=== PATIENT | female | born 1960 | race Caucasian/White ===

== ENCOUNTER 2016-08-10 14:48 | Emergency (ER) | payer OTHER ==
[~2016-08-10] VITALS: Ht 162.6 cm; Wt 49.6 kg
[~2016-08-10 14:48] MED LIST: ACID CONTROL150 MG PO; ADULT LOW DOSE81 M1 PO; ADVAIR 250/501 DISK IH; ADVIL,NUPRIN,M200 MG PO; AMITRIPTYLINE H10 MG PO; AMLODIPINE BES2.5 MG PO; AMLODIPINE BESYL5 MG PO; ASPIR 8181 M1; ASPIR 8181 M1 PO; ASPIR 8181 MG PO; ASPIR-LOW81 MG PO; ASPIRIN E.C.81 M1 PO; ASPIRIN81 M1 PO; ASPIRIN81 M2 PO; ATIVAN INTE2 MG/1 ML PO; ATIVAN0.5 MG PO; ATORVASTATIN CA40 MG PO; ATORVASTATIN CA80 MG; ATORVASTATIN CA80 MG PO; Aspirin Chewable PO; Aspirin E.C. PO; BACTRIM,SEPT1 TABLET PO; BAYER CHEWABLE81 MG PO; BRILINTA90 MG PO; Bactrim,Septra DS 80 PO; CETIRIZINE HCL10 M2 PO; CHILD ASPIRIN81 M1 PO; CIPRO500 MG PO; CYANOCOBALAM1000 MCG PO; CYANOCOBALAMI100 MCG PO; Combivent IH; DEXILANT60 MG PO; DIFLUCAN100 MG PO; DIFLUCAN150 MG PO; DIOVAN HCT 11 TABLET PO; DIOVAN HCT 1601 EACH PO; DIOVAN HCT 31 TABLE1; DIOVAN80 MG PO; Diovan HCT 160/12.5 PO; EASY COMFORT P MC; EFFIENT10 MG; EFFIENT10 MG PO; FLONASE16 G1 BOTH NARES; FOLIC ACID1 MG PO; GLIPIZIDE5 MG PO; GLUCOPHAGE500 MG PO; HALDOL0.5 MG PO; HEARTBURN150 MG PO; HUMALOG100 UNIT/1 SC; HUMALOG100 UNIT/2; HUMALOG100 UNIT/2 SC; HUMALOG100 UNITS/ SC; HUMULIN SQ; HYDROCHLOROTH12.5 M3 PO; IBUPROFEN400 MG PO; IMDUR120 MG PO; IMDUR30 MG PO; IMDUR60 MG PO; ISOSORBIDE DINI30 MG; ISOSORBIDE DINI30 MG PO; ISOSORBIDE MONO20 MG PO; ISOSORBIDE MONO30 MG; ISOSORBIDE MONO30 MG PO; LANTUS (UNITS)1 UNIT SC; LANTUS 10100 UNITS/ SC; LANTUS 10100 UNITS/ SQ; LANTUS 3 M100 UNITS/ SC; LANTUS 3 M100 UNITS/ SQ; LANTUS 3 M100 UNITS1 SC; LANTUS100 UNIT/1; LANTUS100 UNIT/1 SC; LEVAQUIN500 MG PO; LIPITOR20 MG; LIPITOR20 MG PO; LIPITOR80 MG PO; LISINOPRIL5 MG PO; LO-DOSE ASPIRIN81 M1 PO; LOPRESSOR25 MG PO; LOPRESSOR50 MG PO; LOW DOSE ASPIRI81 M1 PO; LOW DOSE ASPIRI81 M2 PO; LYRICA25 MG; LYRICA50 MG PO; Lipitor PO; Lopressor PO; MARTINIC1 EACH PO; METFORMIN HCL500 MG PO; METOPROLOL PO; METOPROLOL SUCC25 MG PO; METOPROLOL TART25 MG PO; METOPROLOL TART50 MG PO; MIRALAX17 GM PO; MORPHINE CON20 MG/M1 PO; MOTRIN IB200 MG PO; MYCOSTATIN15 GM PO; NITROGLYCERIN0.4 MG SL; NITROSTAT0.4 MG SL; NORCO 5/3251 TABLET PO; NORVASC2.5 MG PO; NORVASC5 MG PO; NOVOLIN R100 UNIT/1 IM; NOVOLOG PE100 UNITS/ SC; NYSTATIN-TRIAMC15 GM TP; NYSTATIN15 GM TP; Norvasc PO; PERCOCET 5/31 TABLET PO; PLAVIX75 MG PO; PRAVACHOL40 MG PO; PRAVACHOL80 MG PO; PREMARIN0.3 MG PO; PRINIVIL5 MG PO; PROAIR HFA8.5 GM IH; PYRIDOXINE,VITA50 MG PO; Protonix PO; Proventil,Ventolin H IH; RANITIDINE HCL150 M1 PO; RANITIDINE HCL150 MG; RANITIDINE HCL150 MG PO; ROXICODONE5 MG PO; SIMVASTATIN20 M1 PO; SIMVASTATIN40 M1 PO; TEST N'GO1 EAC1 MC; TEST N'GO1 EACH MC; TOPROL XL100 MG PO; TOPROL XL50 MG PO; TRAMADOL HCL50 MG; TRAMADOL HCL50 MG PO; TYLENOL EXTRA500 MG PO; TYLENOL REGULA325 MG PO; ULTRAM50 MG PO; VALSARTAN-HCTZ1 EAC1 PO; VENTOLIN17 GM IH; VIT B-6; VITAMIN B-1250 MC3 PO; VITAMIN B-6100 MG; VITAMIN B-6100 MG PO; VITAMIN B-650 MG PO; VITAMIN B12-FO1 EACH PO; VITAMIN D-32000 UNIT PO; VITAMIN D2000 INTUN PO; VITAMIN D22000 UNIT PO; VITAMIN D400 UNI4; VITAMIN D5000 INTUN; VITAMIN D5000 INTUN PO; VITAMIN D5000 UNIT; VITAMIN D5000 UNIT PO; WOMEN MULTIVIT1 EACH PO; ZANTAC150 M1 PO; ZANTAC150 MG PO; ZETIA10 MG PO; ZITHROMAX Z-PA250 MG PO; ZOFRAN ODT4 MG PO; ZOFRAN4 MG PO; ZYRTEC10 M2 PO; Zantac PO; Zestril,Prinivil PO; Zocor PO; [UNRECOGNIZED DRUG - OTHER] SQ
[2016-08-10 15:08] LABS: HEMATOCRIT 39.7 % (36.0-46.0); MCH 30.3 PG (29.0-34.0); MCHC 34.8 G/DL (30.0-36.0); MCV 87.3 FL (83-99); MEAN PLAT.VOLUME 10.5 uM^3 (9.5-12.4); PLATELET COUNT 238 K/uL (156-360); RBC DIS.WIDTH-CV 12.6 % (11.8-14.6); RBC DIS.WIDTH-SD 39.5 % (39-53); RED BLOOD COUNT 4.55 M/uL (3.80-5.20); WHITE BLOOD COUNT 6.9 K/uL (4.1-10.2)
[2016-08-10 15:16] LABS: CHLORIDE 95 mEq/L (99-109); POTASSIUM 4.4 mEq/L (3.7-5.4); SODIUM 134 mEq/L (136-147)
[2016-08-10 15:20] LABS: ANION GAP 13 MEQ/L (2-14); GLUCOSE 567 mg/dL (70-99)
[2016-08-10 15:22] LABS: GFR ESTIMATE (CALCULATED) > 59 mL/min/
[2016-08-10 15:23] LABS: UREA NITROGEN (BUN) 17 mg/dL (9-23)
[2016-08-10 15:30] LABS: TROP-I INTERPRETATION NEGATIVE; TROPONIN-I < 0.01 ng/mL (0.0-0.30)
[2016-08-10 16:28] VITALS: BP 116/71
== END 2016-08-10 16:34 | disposition left against medical advice (07) ==
LOC: EME 14:48
DX: R07.9 Chest pain, unspecified (principal); E11.9 Type 2 diabetes mellitus without complications; Z79.4 Long term (current) use of insulin; I25.2 Old myocardial infarction; F17.200 Nicotine dependence, unspecified, uncomplicated; Z95.5 Presence of coronary angioplasty implant and graft
CPT/HCPCS: 71020; 80048; 84484; 85027; 93005; 99281; 99284

== ENCOUNTER 2016-08-20 20:46 | Emergency (ER) | payer OTHER ==
[~2016-08-20] VITALS: Ht 162.6 cm; Wt 53.8 kg
[2016-08-20 21:34] LABS: EOSINOPHIL (%) 2.3 % (0-5); EOSINOPHIL COUNT 0.2 K/uL (0-0.3); HEMATOCRIT 37.1 % (36.0-46.0); IMMATURE GRANULOCYTE (%) 0.3 % (0.0-0.7); IMMATURE GRANULOCYTE COUNT 0.2 K/uL; LYMPHOCYTE COUNT 1.9 K/uL (1.0-2.8); MCH 30.4 PG (29.0-34.0); MCV 89.6 FL (83-99); MEAN PLAT.VOLUME 10.7 uM^3 (9.5-12.4); MONOCYTE (%) 6.2 % (3-12); MONOCYTE COUNT 0.5 K/uL (0-0.8); NEUTROPHIL (%) 64.6 % (45-76); NEUTROPHIL COUNT 4.7 K/uL (1.8-6.4); PLATELET COUNT 221 K/uL (156-360); RBC DIS.WIDTH-SD 41.7 % (39-53); RED BLOOD COUNT 4.14 M/uL (3.80-5.20); WHITE BLOOD COUNT 7.3 K/uL (4.1-10.2)
[2016-08-20 21:45] LABS: CHLORIDE 104 mEq/L (99-109); POTASSIUM 4.1 mEq/L (3.7-5.4); SODIUM 138 mEq/L (136-147)
[2016-08-20 21:47] LABS: GLUCOSE 254 mg/dL (70-99)
[2016-08-20 21:48] LABS: ANION GAP 9 MEQ/L (2-14)
[2016-08-20 21:50] LABS: GFR ESTIMATE (CALCULATED) > 59 mL/min/
[2016-08-20 21:51] LABS: UREA NITROGEN (BUN) 16 mg/dL (9-23)
[2016-08-20 21:58] LABS: TROP-I INTERPRETATION NEGATIVE; TROPONIN-I < 0.01 ng/mL (0.0-0.30)
[2016-08-20 23:50] VITALS: BP 142/51
== END 2016-08-20 23:52 | disposition left against medical advice (07) ==
LOC: EME 20:46
PROVIDERS: Emergency Medicine
DX: R07.9 Chest pain, unspecified (principal); Z53.20 Procedure and treatment not carried out because of patient's decision for unspecified reasons; J43.9 Emphysema, unspecified; J44.9 Chronic obstructive pulmonary disease, unspecified; I10 Essential (primary) hypertension; E78.5 Hyperlipidemia, unspecified; E11.9 Type 2 diabetes mellitus without complications; F17.200 Nicotine dependence, unspecified, uncomplicated; Z95.5 Presence of coronary angioplasty implant and graft; Z79.4 Long term (current) use of insulin; Z91.040 Latex allergy status; Z88.1 Allergy status to other antibiotic agents; Z88.8 Allergy status to other drugs, medicaments and biological substances
CPT/HCPCS: 71010; 80048; 83880; 84484; 85025; 93005; 99281; 99284

== ENCOUNTER 2016-09-07 19:41 | Emergency (ER) | payer OTHER ==
[~2016-09-07] VITALS: Ht 162.6 cm; Wt 53.0 kg
[2016-09-07 20:19] LABS: HEMATOCRIT 39.6 % (36.0-46.0); MCHC 34.1 G/DL (30.0-36.0); PLATELET COUNT 231 K/uL (156-360); RBC DIS.WIDTH-CV 13.2 % (11.8-14.6); RBC DIS.WIDTH-SD 43.5 % (39-53); RED BLOOD COUNT 4.35 M/uL (3.80-5.20)
[2016-09-07 20:29] LABS: CHLORIDE 106 mEq/L (99-109); POTASSIUM 4.2 mEq/L (3.7-5.4); SODIUM 141 mEq/L (136-147)
[2016-09-07 20:30] LABS: GLUCOSE 213 mg/dL (70-99)
[2016-09-07 20:32] LABS: ANION GAP 9 MEQ/L (2-14)
[2016-09-07 20:34] LABS: GFR ESTIMATE (CALCULATED) > 59 mL/min/
[2016-09-07 20:35] LABS: UREA NITROGEN (BUN) 14 mg/dL (9-23)
[2016-09-07 20:40] LABS: TROP-I INTERPRETATION NEGATIVE; TROPONIN-I 0.01 ng/mL (0.0-0.30)
[2016-09-07 21:30] VITALS: BP 154/76
== END 2016-09-07 22:24 | disposition left against medical advice (07) ==
LOC: EME 19:41
DX: R07.9 Chest pain, unspecified (principal); R06.02 Shortness of breath; R42 Dizziness and giddiness; E11.9 Type 2 diabetes mellitus without complications; Z79.4 Long term (current) use of insulin; Z95.5 Presence of coronary angioplasty implant and graft; F17.200 Nicotine dependence, unspecified, uncomplicated
CPT/HCPCS: 71020; 80048; 84484; 85027; 93005; 99281; 99283

== ENCOUNTER 2016-10-13 00:13 | Emergency (ER) | payer OTHER ==
[~2016-10-13] VITALS: Ht 162.6 cm; Wt 50.4 kg
[2016-10-13 00:16] VITALS: BP 146/70
[2016-10-14] MEDS ORDERED: LANTUS 3 M100 UNITS1 SC (23:40)
[2016-10-14] MEDS ORDERED: NEURONTIN600 MG PO (23:40)
== END 2016-10-13 02:00 | disposition left against medical advice (07) ==
LOC: EME 00:13
DX: M79.671 Pain in right foot (principal); M79.89 Other specified soft tissue disorders; R23.8 Other skin changes; Z53.21 Procedure and treatment not carried out due to patient leaving prior to being seen by health care provider

== ENCOUNTER 2016-10-14 18:59 | Emergency (ER) | payer OTHER ==
[~2016-10-14] VITALS: Ht 162.6 cm; Wt 50.3 kg
[2016-10-14 22:26] LABS: HEMATOCRIT 43.2 % (36.0-46.0); MCH 29.8 PG (29.0-34.0); MCHC 33.6 G/DL (30.0-36.0); MCV 88.7 FL (83-99); MEAN PLAT.VOLUME 10.3 uM^3 (9.5-12.4); PLATELET COUNT 327 K/uL (156-360); RBC DIS.WIDTH-CV 12.1 % (11.8-14.6); RBC DIS.WIDTH-SD 39.1 % (39-53); RED BLOOD COUNT 4.87 M/uL (3.80-5.20); WHITE BLOOD COUNT 8.8 K/uL (4.1-10.2)
[2016-10-14 22:37] LABS: CHLORIDE 98 mEq/L (99-109); POTASSIUM 4.6 mEq/L (3.7-5.4); SODIUM 135 mEq/L (136-147)
[2016-10-14 22:40] LABS: ANION GAP 9 MEQ/L (2-14); GLUCOSE 466 mg/dL (70-99)
[2016-10-14 22:42] LABS: GFR ESTIMATE (CALCULATED) > 59 mL/min/
[2016-10-14 22:43] LABS: UREA NITROGEN (BUN) 13 mg/dL (9-23)
[2016-10-14 22:47] LABS: TROP-I INTERPRETATION NEGATIVE; TROPONIN-I < 0.01 ng/mL (0.0-0.30)
[2016-10-14] MEDS ORDERED: NEURONTIN600 MG PO (23:40)
[2016-10-14] MEDS ORDERED: LANTUS 3 M100 UNITS1 SC (23:40)
[2016-10-15] MEDS ORDERED: CLEOCIN300 MG PO (00:21)
[2016-10-15 00:40] VITALS: BP 117/58
== END 2016-10-15 01:05 | disposition home or self-care (01) ==
LOC: EME 18:59
PROVIDERS: Emergency Medicine
DX: M86.8X7 Other osteomyelitis, ankle and foot (principal); L03.031 Cellulitis of right toe; E11.9 Type 2 diabetes mellitus without complications; Z79.4 Long term (current) use of insulin; Z91.14 Patient's other noncompliance with medication regimen; F17.200 Nicotine dependence, unspecified, uncomplicated; Z95.5 Presence of coronary angioplasty implant and graft
CPT/HCPCS: 71010; 73630; 80048; 83605; 83880; 84484; 85027; 87040; 93005; 99281; 99284; J2270; J2405

== ENCOUNTER 2016-10-28 19:09 | Emergency (ER) | payer OTHER ==
[~2016-10-28] VITALS: Ht 162.6 cm; Wt 51.6 kg
[~2016-10-28 19:09] MED LIST changes: +CLEOCIN300 MG PO; +NEURONTIN600 MG PO
[2016-10-28 19:39] LABS: POINT-OF-CARE METER ID UU13113702
[2016-10-28 20:09] LABS: HEMATOCRIT 36.1 % (36.0-46.0); MCH 30.2 PG (29.0-34.0); MCV 91.6 FL (83-99); MEAN PLAT.VOLUME 10.2 uM^3 (9.5-12.4); PLATELET COUNT 239 K/uL (156-360); RBC DIS.WIDTH-CV 12.5 % (11.8-14.6); RBC DIS.WIDTH-SD 41.9 % (39-53); RED BLOOD COUNT 3.94 M/uL (3.80-5.20)
[2016-10-28 20:10] LABS: WHITE BLOOD COUNT 5.7 K/uL (4.1-10.2)
[2016-10-28 20:15] LABS: CHLORIDE 103 mEq/L (99-109); POTASSIUM 4.2 mEq/L (3.7-5.4); SODIUM 138 mEq/L (136-147)
[2016-10-28 20:18] LABS: ANION GAP 7 MEQ/L (2-14)
[2016-10-28 20:20] LABS: GFR ESTIMATE (CALCULATED) > 59 mL/min/
[2016-10-28 20:21] LABS: UREA NITROGEN (BUN) 12 mg/dL (9-23)
[2016-10-28 20:27] LABS: GLUCOSE 413 mg/dL (70-99)
[2016-10-28 20:55] LABS: POINT-OF-CARE METER ID UU13113702
[2016-10-28] MEDS ORDERED: NORCO 7.5/321 TABLET PO (21:17)
[2016-10-28 21:35] VITALS: BP 146/75
== END 2016-10-28 21:38 | disposition home or self-care (01) ==
LOC: EME 19:09
PROVIDERS: Emergency Medicine
DX: I96 Gangrene, not elsewhere classified (principal); E11.65 Type 2 diabetes mellitus with hyperglycemia; Z79.4 Long term (current) use of insulin; Z95.5 Presence of coronary angioplasty implant and graft; F17.200 Nicotine dependence, unspecified, uncomplicated
CPT/HCPCS: 73630; 80048; 82948; 83605; 85027; 99281; 99284; J7030

== ENCOUNTER 2016-10-30 00:54 | Inpatient (IN) | payer OTHER ==
[~2016-10-30] VITALS: Ht 162.6 cm; Wt 52.2 kg
[~2016-10-30 00:54] MED LIST changes: +NORCO 7.5/321 TABLET PO
[2016-10-30 01:06] LABS: CREATININE 0.5 mg/dL (0.6-1.3)
[2016-10-30 01:19] LABS: BASOPHIL COUNT 0.1 K/uL (0-0.1); EOSINOPHIL (%) 2.5 % (0-5); EOSINOPHIL COUNT 0.2 K/uL (0-0.3); HEMATOCRIT 38.7 % (36.0-46.0); IMMATURE GRANULOCYTE (%) 0.3 % (0.0-0.7); LYMPHOCYTE COUNT 2.5 K/uL (1.0-2.8); MCHC 32.8 G/DL (30.0-36.0); MCV 91.3 FL (83-99); MEAN PLAT.VOLUME 10.5 uM^3 (9.5-12.4); MONOCYTE (%) 7.9 % (3-12); MONOCYTE COUNT 0.6 K/uL (0-0.8); NEUTROPHIL (%) 54.8 % (45-76); PLATELET COUNT 247 K/uL (156-360); RBC DIS.WIDTH-CV 12.5 % (11.8-14.6); RBC DIS.WIDTH-SD 41.8 % (39-53); RED BLOOD COUNT 4.24 M/uL (3.80-5.20); WHITE BLOOD COUNT 7.2 K/uL (4.1-10.2)
[2016-10-30 01:30] LABS: PROTHROMBIN TIME 10.3 (9.2-11.2); PTT 25.4 (25-32)
[2016-10-30 01:31] LABS: AMYLASE 40 IU/L (1-118); CHLORIDE 103 mEq/L (99-109); POTASSIUM 4.2 mEq/L (3.7-5.4); SODIUM 137 mEq/L (136-147)
[2016-10-30 01:33] LABS: GLUCOSE 304 mg/dL (70-99)
[2016-10-30 01:34] LABS: ANION GAP 8 MEQ/L (2-14)
[2016-10-30 01:36] LABS: SERUM ETHYL ALCOHOL < 10 mg/dL
[2016-10-30 01:37] LABS: GFR ESTIMATE (CALCULATED) > 59 mL/min/; UREA NITROGEN (BUN) 10 mg/dL (9-23)
[2016-10-30 02:07] LABS: LIPASE 19 U/L (1.0-51.0); TROP-I INTERPRETATION NEGATIVE; TROPONIN-I 0.01 ng/mL (0.0-0.30)
[2016-10-30 02:14] LABS: ADD MIUA? YES; BILIRUBIN NEGATIVE; BLOOD NEGATIVE; COLOR STRAW ((YELLOW)); GLUCOSE (STRIP) >=500; KETONES 5; LEUKOCYTES TRACE; NITRITE NEGATIVE; PROTEIN (STRIP) NEGATIVE; SPECIFIC GRAVITY 1.028 (1.000-1.030); UROBILINOGEN 0.2 MG/DL (0.2-1.0)
[2016-10-30 02:22] LABS: ADD MEDTOX COMMENT Y; AMPHETAMINE NEGATIVE (500 ng/mL); BARBITURATES NEGATIVE (200 ng/mL); BENZODIAZEPINES NEGATIVE (150 ng/mL); COCAINE NEGATIVE (150 ng/mL); INTERNAL CONTROLS VALID? YES; METHADONE NEGATIVE (200 ng/mL); METHAMPHETAMINE NEGATIVE (500 ng/mL); OPIATES (MORPHINE) PRESUMPTIVE POSITIVE (100 ng/mL); OXYCODONE NEGATIVE (100 ng/mL); PHENCYCLIDINE NEGATIVE (25 ng/mL); PROPOXYPHENE NEGATIVE (300 ng/mL); THC CANNABINOIDS NEGATIVE (50 ng/mL); TRICYCLIC ANTIDEPRESSANTS NEGATIVE (300 ng/mL)
[2016-10-30 02:43] LABS: BACTERIA 1+ /HPF; EPITHELIAL CELLS 1+ /HPF; MUCUS NONE SEEN /LPF; RED BLOOD CELLS NONE SEEN /HPF (0-5); UCUL ADDED? NO
[2016-10-30 02:56] LABS: OPIATES QUANTITATIVE VALUE 0 NG/ML
[2016-10-30 04:44] VITALS: BP 167/73
[2016-10-30 04:48] LABS: HDL CHOLESTEROL 39 MG/DL (Desirable>=50); LDL CHOLESTEROL 141 mg/dL (Desirable<100); NON-HDL CHOLESTEROL 168 mg/dL (Desirable<160); TOTAL CHOLESTEROL 207 mg/dL (Desirable<200); TRIGLYCERIDES 133 MG/DL (Normal: <150)
[2016-10-30 07:06] LABS: HEMATOCRIT 36.8 % (36.0-46.0); MCH 30.1 PG (29.0-34.0); MCHC 33.2 G/DL (30.0-36.0); MCV 90.9 FL (83-99); MEAN PLAT.VOLUME 10.8 uM^3 (9.5-12.4); NRBC (%) 0.3 /100 WBC (0-0); PLATELET COUNT 242 K/uL (156-360); RBC DIS.WIDTH-CV 12.5 % (11.8-14.6); RBC DIS.WIDTH-SD 41.2 % (39-53); RED BLOOD COUNT 4.05 M/uL (3.80-5.20); WHITE BLOOD COUNT 7.6 K/uL (4.1-10.2)
[2016-10-30 07:24] VITALS: BP 165/72
[2016-10-30 07:29] LABS: ALKALINE PHOSPHATASE 204 IU/L (3-129); ANION GAP 5 MEQ/L (2-14); CHLORIDE 103 MEQ/L (99-109); GFR ESTIMATE (CALCULATED) > 59 mL/min/; GLUCOSE 241 mg/dL (70-99); POTASSIUM 4.3 MEQ/L (3.7-5.4); SAMPLE HEMOLYSIS CHECK 0; SAMPLE ICTERIC CHECK 0; SAMPLE LIPEMIA CHECK 0; SODIUM 137 MEQ/L (136-147); TOTAL BILIRUBIN 0.6 MG/DL (0.0-1.0); UREA NITROGEN (BUN) 8 mg/dL (9-23)
[2016-10-30 11:33] VITALS: BP 174/77
[2016-10-30] MEDS ORDERED: ADVAIR 250/501 DISK IH (15:41)
[2016-10-30] MEDS ORDERED: VENTOLIN HFA18 GM IH (15:42)
[2016-10-30 15:47] VITALS: BP 160/71
[2016-10-31 07:29] LABS: Estimated Average Glucose 269 mg/dL (70-123)
== END 2016-10-30 19:25 | disposition left against medical advice (07) | DRG 69 ==
LOC: EME → EDBD 00:54 → EDOF 03:17 → 5SOUTH 04:29
PROVIDERS: Emergency Medicine; Internal Medicine
DX: G45.9 Transient cerebral ischemic attack, unspecified (principal); E11.52 Type 2 diabetes mellitus with diabetic peripheral angiopathy with gangrene; E11.42 Type 2 diabetes mellitus with diabetic polyneuropathy; I69.354 Hemiplegia and hemiparesis following cerebral infarction affecting left non-dominant side; I70.8 Atherosclerosis of other arteries; I77.89 Other specified disorders of arteries and arterioles; E11.65 Type 2 diabetes mellitus with hyperglycemia; R47.81 Slurred speech; J44.9 Chronic obstructive pulmonary disease, unspecified; E78.5 Hyperlipidemia, unspecified; I25.10 Atherosclerotic heart disease of native coronary artery without angina pectoris; C50.919 Malignant neoplasm of unspecified site of unspecified female breast; C53.9 Malignant neoplasm of cervix uteri, unspecified; Z95.5 Presence of coronary angioplasty implant and graft; H53.8 Other visual disturbances; I10 Essential (primary) hypertension; G89.29 Other chronic pain; K21.9 Gastro-esophageal reflux disease without esophagitis; F32.9 Major depressive disorder, single episode, unspecified; F41.9 Anxiety disorder, unspecified; Z91.19 Patient's noncompliance with other medical treatment and regimen
CPT/HCPCS: 70496; 70498; 70551; 71020; 80047; 80048; 80053; 80061; 81003; 82150; 82948; 83036; 83605; 83690; 84484; 84999; 85025; 85027; 85610; 85730; 86850; 86900; 86901; 93005; 99281; 99285; G0480; J1644; J1815; J3010

== ENCOUNTER 2016-11-12 00:19 | Emergency (ER) | payer OTHER ==
[~2016-11-12] VITALS: Ht 162.6 cm; Wt 59.0 kg
[~2016-11-12 00:19] MED LIST changes: +VENTOLIN HFA18 GM IH
[2016-11-12 00:29] LABS: HEMATOCRIT 38.7 % (36.0-46.0); MCH 30.3 PG (29.0-34.0); MCHC 34.4 G/DL (30.0-36.0); MCV 88.2 FL (83-99); MEAN PLAT.VOLUME 10.3 uM^3 (9.5-12.4); PLATELET COUNT 258 K/uL (156-360); RBC DIS.WIDTH-CV 12.6 % (11.8-14.6); RED BLOOD COUNT 4.39 M/uL (3.80-5.20); WHITE BLOOD COUNT 8.6 K/uL (4.1-10.2)
[2016-11-12 00:35] LABS: CREATININE 0.6 mg/dL (0.6-1.3); POTASSIUM 4.4 mEq/L (3.7-5.4)
[2016-11-12 00:40] LABS: PROTHROMBIN TIME 10.4 (9.2-11.2)
[2016-11-12 00:47] LABS: CHLORIDE 102 mEq/L (99-109)
[2016-11-12 00:48] LABS: POTASSIUM 4.4 mEq/L (3.7-5.4); SODIUM 138 mEq/L (136-147)
[2016-11-12 00:51] LABS: ANION GAP 11 MEQ/L (2-14)
[2016-11-12 00:53] LABS: GFR ESTIMATE (CALCULATED) > 59 mL/min/
[2016-11-12 00:54] LABS: UREA NITROGEN (BUN) 15 mg/dL (9-23)
[2016-11-12 00:57] LABS: GLUCOSE 418 mg/dL (70-99)
[2016-11-12] MEDS ORDERED: CLINDAMYCIN HC300 MG PO (01:07)
[2016-11-12] MEDS ORDERED: IRON325 M1 PO (01:07)
[2016-11-12] MEDS ORDERED: PLAVIX75 MG PO (01:07)
[2016-11-12] MEDS ORDERED: ASPIR 8181 M1 PO (01:08)
[2016-11-12 02:01] VITALS: BP 143/64
== END 2016-11-12 02:05 | disposition left against medical advice (07) ==
LOC: EME → EDBD 00:19 → EME 00:19 → EDOF 01:28 → EME 01:28
PROVIDERS: Emergency Medicine
DX: G45.9 Transient cerebral ischemic attack, unspecified (principal); J44.9 Chronic obstructive pulmonary disease, unspecified; E11.9 Type 2 diabetes mellitus without complications; Z79.4 Long term (current) use of insulin; I25.10 Atherosclerotic heart disease of native coronary artery without angina pectoris; Z95.5 Presence of coronary angioplasty implant and graft; Z79.02 Long term (current) use of antithrombotics/antiplatelets; Z79.82 Long term (current) use of aspirin; F17.200 Nicotine dependence, unspecified, uncomplicated; Z86.73 Personal history of transient ischemic attack (TIA), and cerebral infarction without residual deficits
CPT/HCPCS: 70450; 71010; 80047; 80048; 83605; 85027; 85610; 85730; 93005; 99281; 99285; J7030

== ENCOUNTER 2016-11-19 01:22 | Emergency (ER) | payer OTHER ==
[~2016-11-19] VITALS: Ht 162.6 cm; Wt 47.2 kg
[~2016-11-19 01:22] MED LIST changes: +CLINDAMYCIN HC300 MG PO; +IRON325 M1 PO
[2016-11-19 01:32] VITALS: BP 124/56
== END 2016-11-19 02:05 | disposition left against medical advice (07) ==
LOC: EME 01:22
DX: M79.606 Pain in leg, unspecified (principal); Z53.21 Procedure and treatment not carried out due to patient leaving prior to being seen by health care provider

== ENCOUNTER 2016-11-26 18:20 | Emergency (ER) | payer OTHER ==
[~2016-11-26] VITALS: Ht 162.6 cm; Wt 52.8 kg
[2016-11-26 18:39] LABS: HEMATOCRIT 41.1 % (36.0-46.0); MCH 30.2 PG (29.0-34.0); MCHC 34.3 G/DL (30.0-36.0); MEAN PLAT.VOLUME 10.5 uM^3 (9.5-12.4); PLATELET COUNT 242 K/uL (156-360); RBC DIS.WIDTH-CV 12.4 % (11.8-14.6); RBC DIS.WIDTH-SD 39.7 % (39-53); RED BLOOD COUNT 4.67 M/uL (3.80-5.20); WHITE BLOOD COUNT 7.2 K/uL (4.1-10.2)
[2016-11-26 18:50] LABS: CHLORIDE 102 mEq/L (99-109); POTASSIUM 4.2 mEq/L (3.7-5.4); SODIUM 137 mEq/L (136-147)
[2016-11-26 18:52] LABS: GLUCOSE 354 mg/dL (70-99)
[2016-11-26 18:53] LABS: ANION GAP 11 MEQ/L (2-14)
[2016-11-26 18:56] LABS: GFR ESTIMATE (CALCULATED) > 59 mL/min/
[2016-11-26 18:57] LABS: UREA NITROGEN (BUN) 16 mg/dL (9-23)
[2016-11-26 21:18] VITALS: BP 157/56
== END 2016-11-26 21:19 | disposition home or self-care (01) ==
LOC: EME 18:20
DX: G43.109 Migraine with aura, not intractable, without status migrainosus (principal); R29.810 Facial weakness; I50.9 Heart failure, unspecified; J44.9 Chronic obstructive pulmonary disease, unspecified; E78.5 Hyperlipidemia, unspecified; I11.0 Hypertensive heart disease with heart failure; G43.909 Migraine, unspecified, not intractable, without status migrainosus; I25.2 Old myocardial infarction; K21.9 Gastro-esophageal reflux disease without esophagitis; Z86.73 Personal history of transient ischemic attack (TIA), and cerebral infarction without residual deficits; E11.40 Type 2 diabetes mellitus with diabetic neuropathy, unspecified; Z79.4 Long term (current) use of insulin; Z95.5 Presence of coronary angioplasty implant and graft; F41.9 Anxiety disorder, unspecified; R10.9 Unspecified abdominal pain; Z88.0 Allergy status to penicillin
CPT/HCPCS: 70450; 71010; 74176; 80048; 83605; 85027; 93005; 99281; 99285

== ENCOUNTER 2016-12-01 13:59 | Emergency (ER) | payer OTHER ==
[~2016-12-01] VITALS: Ht 162.6 cm; Wt 48.1 kg
[2016-12-01 14:54] LABS: EOSINOPHIL (%) 1.7 % (0-5); EOSINOPHIL COUNT 0.1 K/uL (0-0.3); IMMATURE GRANULOCYTE (%) 0.3 % (0.0-0.7); INSTRUMENT ABS NEUTROPHIL CT 4.6 K/uL; LYMPHOCYTE COUNT 1.8 K/uL (1.0-2.8); MCH 29.9 PG (29.0-34.0); MCHC 33.9 G/DL (30.0-36.0); MCV 88.2 FL (83-99); MEAN PLAT.VOLUME 10.5 uM^3 (9.5-12.4); MONOCYTE (%) 6.4 % (3-12); MONOCYTE COUNT 0.5 K/uL (0-0.8); NEUTROPHIL (%) 66.2 % (45-76); NEUTROPHIL COUNT 4.6 K/uL (1.8-6.4); PLATELET COUNT 240 K/uL (156-360); RBC DIS.WIDTH-CV 12.6 % (11.8-14.6); RBC DIS.WIDTH-SD 40.4 % (39-53); RED BLOOD COUNT 4.65 M/uL (3.80-5.20)
[2016-12-01 15:02] LABS: CHLORIDE 98 mEq/L (99-109); POTASSIUM 4.6 mEq/L (3.7-5.4); SODIUM 134 mEq/L (136-147)
[2016-12-01 15:05] LABS: ANION GAP 9 MEQ/L (2-14)
[2016-12-01 15:08] LABS: GFR ESTIMATE (CALCULATED) > 59 mL/min/
[2016-12-01 15:09] LABS: UREA NITROGEN (BUN) 14 mg/dL (9-23)
[2016-12-01 15:11] LABS: GLUCOSE 455 mg/dL (70-99)
[2016-12-01] MEDS ORDERED: ASPIRIN81 M2 PO (17:18)
[2016-12-01 17:28] LABS: POINT-OF-CARE METER ID UU14100415
[2016-12-01 18:38] LABS: POINT-OF-CARE METER ID UU14100415
[2016-12-01] MEDS ORDERED: CLINDAMYCIN HC300 MG PO (19:29)
[2016-12-01 20:15] VITALS: BP 164/89
[2016-12-05 11:01] LABS: POINT-OF-CARE METER ID UU14100415
== END 2016-12-01 20:06 | disposition home or self-care (01) ==
LOC: EME 13:59
PROVIDERS: Emergency Medicine
DX: E11.69 Type 2 diabetes mellitus with other specified complication (principal); M86.8X7 Other osteomyelitis, ankle and foot; E11.52 Type 2 diabetes mellitus with diabetic peripheral angiopathy with gangrene; I73.9 Peripheral vascular disease, unspecified; E11.65 Type 2 diabetes mellitus with hyperglycemia; Z79.4 Long term (current) use of insulin; I10 Essential (primary) hypertension; J44.9 Chronic obstructive pulmonary disease, unspecified; J45.909 Unspecified asthma, uncomplicated; G89.29 Other chronic pain; I25.2 Old myocardial infarction; I69.954 Hemiplegia and hemiparesis following unspecified cerebrovascular disease affecting left non-dominant side; K21.9 Gastro-esophageal reflux disease without esophagitis; I50.9 Heart failure, unspecified; E78.5 Hyperlipidemia, unspecified; F17.200 Nicotine dependence, unspecified, uncomplicated
CPT/HCPCS: 73630; 80048; 82948; 83605; 85025; 87040; 99281; 99285; J2270; J3370; J7030

== ENCOUNTER 2016-12-02 05:39 | Emergency (ER) | payer OTHER ==
[~2016-12-02] VITALS: Ht 162.6 cm; Wt 48.0 kg
[2016-12-02 05:49] VITALS: BP 121/50
== END 2016-12-02 07:04 | disposition left against medical advice (07) ==
LOC: EME 05:39
DX: M79.671 Pain in right foot (principal); Z53.21 Procedure and treatment not carried out due to patient leaving prior to being seen by health care provider

== ENCOUNTER 2016-12-02 16:58 | Emergency (ER) | payer OTHER ==
[~2016-12-02] VITALS: Ht 162.6 cm; Wt 48.1 kg
[2016-12-02 19:20] LABS: EOSINOPHIL (%) 1.6 % (0-5); EOSINOPHIL COUNT 0.1 K/uL (0-0.3); HEMATOCRIT 39.6 % (36.0-46.0); IMMATURE GRANULOCYTE (%) 0.3 % (0.0-0.7); INSTRUMENT ABS NEUTROPHIL CT 4.2 K/uL; MCH 30.4 PG (29.0-34.0); MCHC 34.3 G/DL (30.0-36.0); MCV 88.6 FL (83-99); MEAN PLAT.VOLUME 10.6 uM^3 (9.5-12.4); MONOCYTE (%) 7.2 % (3-12); MONOCYTE COUNT 0.5 K/uL (0-0.8); NEUTROPHIL (%) 61.6 % (45-76); NEUTROPHIL COUNT 4.2 K/uL (1.8-6.4); PLATELET COUNT 237 K/uL (156-360); RBC DIS.WIDTH-CV 12.5 % (11.8-14.6); RBC DIS.WIDTH-SD 40.9 % (39-53); RED BLOOD COUNT 4.47 M/uL (3.80-5.20); WHITE BLOOD COUNT 6.8 K/uL (4.1-10.2)
[2016-12-02 19:29] LABS: CHLORIDE 102 mEq/L (99-109); POTASSIUM 4.3 mEq/L (3.7-5.4); SODIUM 137 mEq/L (136-147)
[2016-12-02 19:32] LABS: ANION GAP 10 MEQ/L (2-14)
[2016-12-02 19:35] LABS: GFR ESTIMATE (CALCULATED) > 59 mL/min/; GLUCOSE 413 mg/dL (70-99)
[2016-12-02 19:36] LABS: UREA NITROGEN (BUN) 11 mg/dL (9-23)
[2016-12-02 21:20] VITALS: BP 122/72
== END 2016-12-02 21:22 | disposition left against medical advice (07) ==
LOC: EME 16:58
PROVIDERS: Emergency Medicine
DX: L03.031 Cellulitis of right toe (principal); M86.671 Other chronic osteomyelitis, right ankle and foot; E11.9 Type 2 diabetes mellitus without complications; J44.9 Chronic obstructive pulmonary disease, unspecified; E78.5 Hyperlipidemia, unspecified; I10 Essential (primary) hypertension; I25.2 Old myocardial infarction; K21.9 Gastro-esophageal reflux disease without esophagitis; Z86.73 Personal history of transient ischemic attack (TIA), and cerebral infarction without residual deficits; I25.10 Atherosclerotic heart disease of native coronary artery without angina pectoris; Z98.61 Coronary angioplasty status; Z85.41 Personal history of malignant neoplasm of cervix uteri; Z85.3 Personal history of malignant neoplasm of breast; Z79.4 Long term (current) use of insulin; Z79.82 Long term (current) use of aspirin; F17.200 Nicotine dependence, unspecified, uncomplicated
CPT/HCPCS: 80048; 83605; 85025; 87040; 87801; 99281; 99285; J0696; J1885; J2405; J7030; J7050

== ENCOUNTER 2016-12-08 20:15 | Emergency (ER) | payer OTHER ==
[~2016-12-08] VITALS: Ht 162.6 cm; Wt 49.4 kg
[2016-12-08 21:18] LABS: HEMATOCRIT 40.4 % (36.0-46.0); MCH 30.1 PG (29.0-34.0); MCHC 34.2 G/DL (30.0-36.0); MCV 88.2 FL (83-99); MEAN PLAT.VOLUME 10.7 uM^3 (9.5-12.4); PLATELET COUNT 253 K/uL (156-360); RBC DIS.WIDTH-CV 12.5 % (11.8-14.6); RBC DIS.WIDTH-SD 40.8 % (39-53); RED BLOOD COUNT 4.58 M/uL (3.80-5.20)
[2016-12-08 21:27] LABS: CHLORIDE 99 mEq/L (99-109); POTASSIUM 4.5 mEq/L (3.7-5.4); SODIUM 136 mEq/L (136-147)
[2016-12-08 21:30] LABS: ANION GAP 11 MEQ/L (2-14)
[2016-12-08 21:32] LABS: GFR ESTIMATE (CALCULATED) > 59 mL/min/
[2016-12-08 21:33] LABS: UREA NITROGEN (BUN) 15 mg/dL (9-23)
[2016-12-08 21:58] LABS: GLUCOSE 468 mg/dL (70-99)
[2016-12-08 22:35] VITALS: BP 00/0
== END 2016-12-08 22:39 | disposition left against medical advice (07) ==
LOC: EME 20:15
PROVIDERS: Emergency Medicine
DX: I96 Gangrene, not elsewhere classified (principal); E11.52 Type 2 diabetes mellitus with diabetic peripheral angiopathy with gangrene; Z95.5 Presence of coronary angioplasty implant and graft; Z79.4 Long term (current) use of insulin; Z79.82 Long term (current) use of aspirin; J45.909 Unspecified asthma, uncomplicated; J44.9 Chronic obstructive pulmonary disease, unspecified; I25.2 Old myocardial infarction; K21.9 Gastro-esophageal reflux disease without esophagitis; I69.398 Other sequelae of cerebral infarction; Z85.3 Personal history of malignant neoplasm of breast; Z85.41 Personal history of malignant neoplasm of cervix uteri; F17.200 Nicotine dependence, unspecified, uncomplicated; Z91.018 Allergy to other foods; Z91.040 Latex allergy status; Z88.0 Allergy status to penicillin; Z88.8 Allergy status to other drugs, medicaments and biological substances; Z88.1 Allergy status to other antibiotic agents; Z91.048 Other nonmedicinal substance allergy status; Z95.828 Presence of other vascular implants and grafts
CPT/HCPCS: 73630; 80048; 85027; 99281; 99284; J1885

== ENCOUNTER 2016-12-12 02:49 | Inpatient (IN) | payer OTHER ==
[~2016-12-12] VITALS: Ht 162.6 cm; Wt 54.0 kg
[2016-12-12 03:49] LABS: BASOPHIL COUNT 0.1 K/uL (0-0.1); CARBON DIOXIDE (BICARBONATE) 28.7 MEQ/L (20-31); EOSINOPHIL (%) 1.9 % (0-5); EOSINOPHIL COUNT 0.2 K/uL (0-0.3); HEMATOCRIT 42.4 % (36.0-46.0); IMMATURE GRANULOCYTE (%) 0.3 % (0.0-0.7); INSTRUMENT ABS NEUTROPHIL CT 4.7 K/uL; LYMPHOCYTE COUNT 2.4 K/uL (1.0-2.8); MCH 29.9 PG (29.0-34.0); MCV 88.1 FL (83-99); MEAN PLAT.VOLUME 10.6 uM^3 (9.5-12.4); MONOCYTE (%) 6.8 % (3-12); MONOCYTE COUNT 0.5 K/uL (0-0.8); NEUTROPHIL (%) 59.5 % (45-76); NEUTROPHIL COUNT 4.7 K/uL (1.8-6.4); PLATELET COUNT 295 K/uL (156-360); RBC DIS.WIDTH-CV 12.5 % (11.8-14.6); RBC DIS.WIDTH-SD 40.7 % (39-53); RED BLOOD COUNT 4.81 M/uL (3.80-5.20); WHITE BLOOD COUNT 7.9 K/uL (4.1-10.2)
[2016-12-12 03:59] LABS: CHLORIDE 100 mEq/L (99-109); POTASSIUM 4.4 mEq/L (3.7-5.4); SODIUM 135 mEq/L (136-147)
[2016-12-12 04:02] LABS: GLUCOSE 280 mg/dL (70-99)
[2016-12-12 04:03] LABS: ANION GAP 11 MEQ/L (2-14)
[2016-12-12 04:05] LABS: ALKALINE PHOSPHATASE 138 IU/L (3-129); GFR ESTIMATE (CALCULATED) > 59 mL/min/
[2016-12-12 04:06] LABS: UREA NITROGEN (BUN) 11 mg/dL (9-23)
[2016-12-12 04:10] LABS: TROP-I INTERPRETATION NEGATIVE; TROPONIN-I < 0.01 ng/mL (0.0-0.30)
[2016-12-12 05:24] LABS: ADD MIUA? YES; BILIRUBIN NEGATIVE; BLOOD NEGATIVE; COLOR YELLOW ((YELLOW)); GLUCOSE (STRIP) >=500; KETONES 20; LEUKOCYTES TRACE; NITRITE NEGATIVE; PROTEIN (STRIP) NEGATIVE; SPECIFIC GRAVITY 1.015 (1.000-1.030); UROBILINOGEN 0.2 MG/DL (0.2-1.0)
[2016-12-12 05:27] LABS: TOTAL BILIRUBIN 0.8 MG/DL (0.0-1.0)
[2016-12-12 05:34] LABS: BACTERIA RARE /HPF; EPITHELIAL CELLS RARE /HPF; MUCUS NONE SEEN /LPF; RED BLOOD CELLS 0-5 /HPF (0-5); UCUL ADDED? NO; WHITE BLOOD CELLS 0-5 /HPF (0-5)
[2016-12-12] MEDS ORDERED: FEOSOL325 MG PO (07:42)
[2016-12-12] MEDS ORDERED: NEURONTIN600 MG PO (07:42)
[2016-12-12] MEDS ORDERED: ADVIL200 MG PO (07:43)
[2016-12-12 07:45] VITALS: BP 164/74
[2016-12-12 11:45] LABS: POINT-OF-CARE METER ID UU13113725
[2016-12-12 13:51] LABS: POINT-OF-CARE METER ID UU13113725
[2016-12-12 13:54] LABS: HEMATOCRIT 40.3 % (36.0-46.0); MCH 29.7 PG (29.0-34.0); MCHC 33.7 G/DL (30.0-36.0); MEAN PLAT.VOLUME 10.3 uM^3 (9.5-12.4); PLATELET COUNT 265 K/uL (156-360); RBC DIS.WIDTH-CV 12.4 % (11.8-14.6); RBC DIS.WIDTH-SD 40.4 % (39-53); RED BLOOD COUNT 4.58 M/uL (3.80-5.20); WHITE BLOOD COUNT 7.6 K/uL (4.1-10.2)
[2016-12-12 14:08] LABS: INTER. NORMALIZED RATIO 1.1; PROTHROMBIN TIME 11.4 (9.2-11.2); PTT 26.9 (25-32)
[2016-12-12 14:13] LABS: ANION GAP 9 MEQ/L (2-14); CHLORIDE 103 MEQ/L (99-109); POTASSIUM 3.8 MEQ/L (3.7-5.4); SAMPLE HEMOLYSIS CHECK 0; SAMPLE ICTERIC CHECK 0; SAMPLE LIPEMIA CHECK 0; SODIUM 137 MEQ/L (136-147)
[2016-12-12 14:14] LABS: TOTAL BILIRUBIN 0.6 MG/DL (0.0-1.0)
[2016-12-12 14:19] LABS: ALKALINE PHOSPHATASE 126 IU/L (3-129); GFR ESTIMATE (CALCULATED) > 59 mL/min/; GLUCOSE 248 mg/dL (70-99); UREA NITROGEN (BUN) 9 mg/dL (9-23)
[2016-12-12 14:39] LABS: TROP-I INTERPRETATION NEGATIVE; TROPONIN-I 0.01 ng/mL (0.0-0.30)
[2016-12-12 15:02] VITALS: BP 157/70
== END 2016-12-12 19:25 | disposition left against medical advice (07) | DRG 300 ==
LOC: EME → EDBD 02:49 → EDOF 06:10 → 5EAST 06:10 → 5SOUTH 06:10 → 5EAST 07:47 → 5SOUTH 14:47
PROVIDERS: Emergency Medicine; Hospitalist; Internal Medicine
DX: I96 Gangrene, not elsewhere classified (principal); G45.9 Transient cerebral ischemic attack, unspecified; I10 Essential (primary) hypertension; K21.9 Gastro-esophageal reflux disease without esophagitis; I25.5 Ischemic cardiomyopathy; R07.9 Chest pain, unspecified; E11.65 Type 2 diabetes mellitus with hyperglycemia; R10.9 Unspecified abdominal pain; F17.200 Nicotine dependence, unspecified, uncomplicated; I73.9 Peripheral vascular disease, unspecified; I65.23 Occlusion and stenosis of bilateral carotid arteries; F10.10 Alcohol abuse, uncomplicated; E78.5 Hyperlipidemia, unspecified; I25.10 Atherosclerotic heart disease of native coronary artery without angina pectoris; Z91.19 Patient's noncompliance with other medical treatment and regimen; Z79.2 Long term (current) use of antibiotics; I25.2 Old myocardial infarction; Z86.73 Personal history of transient ischemic attack (TIA), and cerebral infarction without residual deficits; Z88.1 Allergy status to other antibiotic agents; Z91.040 Latex allergy status; Z88.0 Allergy status to penicillin; Z91.018 Allergy to other foods; I99.8 Other disorder of circulatory system; Z86.001 Personal history of in-situ neoplasm of cervix uteri; Z91.14 Patient's other noncompliance with medication regimen; R64 Cachexia; S91.104A Unspecified open wound of right lesser toe(s) without damage to nail, initial encounter; X58.XXXA Exposure to other specified factors, initial encounter; Y93.9 Activity, unspecified; Y92.9 Unspecified place or not applicable; R29.810 Facial weakness; R47.81 Slurred speech
CPT/HCPCS: 70450; 70496; 70498; 74177; 80053; 81003; 82010; 82803; 82948; 83605; 84484; 85025; 85027; 85610; 85730; 87040; 93005; 94640; 94640 76; 99281; 99285; J0744; J1650; J1815; J1956; J2405; J3010; J3370; J7030

== ENCOUNTER 2017-01-18 03:02 | Emergency (ER) | payer OTHER ==
[~2017-01-18] VITALS: Ht 162.6 cm; Wt 51.6 kg
[~2017-01-18 03:02] MED LIST changes: +ADVIL200 MG PO; +FEOSOL325 MG PO
[2017-01-18 03:37] LABS: HEMATOCRIT 35.7 % (36.0-46.0); MCH 30.8 PG (29.0-34.0); MCHC 33.9 G/DL (30.0-36.0); MCV 90.8 FL (83-99); MEAN PLAT.VOLUME 10.6 uM^3 (9.5-12.4); PLATELET COUNT 227 K/uL (156-360); RBC DIS.WIDTH-CV 12.8 % (11.8-14.6); RED BLOOD COUNT 3.93 M/uL (3.80-5.20)
[2017-01-18 03:54] LABS: CHLORIDE 100 mEq/L (99-109); POTASSIUM 4.4 mEq/L (3.7-5.4); SODIUM 133 mEq/L (136-147)
[2017-01-18 03:55] LABS: GLUCOSE 377 mg/dL (70-99)
[2017-01-18 03:57] LABS: ANION GAP 7 MEQ/L (2-14)
[2017-01-18 03:59] LABS: GFR ESTIMATE (CALCULATED) > 59 mL/min/
[2017-01-18 04:00] LABS: UREA NITROGEN (BUN) 20 mg/dL (9-23)
[2017-01-18 04:33] LABS: PROTHROMBIN TIME 10.1 (9.2-11.2); PTT 25.3 (25-32)
[2017-01-18] MEDS ORDERED: PERCOCET 5/31 TABLET PO (05:00)
[2017-01-18 05:13] VITALS: BP 144/71
== END 2017-01-18 05:14 | disposition home or self-care (01) ==
LOC: EME 03:02
PROVIDERS: Emergency Medicine
DX: L03.115 Cellulitis of right lower limb (principal); E11.65 Type 2 diabetes mellitus with hyperglycemia; E78.5 Hyperlipidemia, unspecified; J44.9 Chronic obstructive pulmonary disease, unspecified; M79.7 Fibromyalgia; I10 Essential (primary) hypertension; I25.2 Old myocardial infarction; K21.9 Gastro-esophageal reflux disease without esophagitis; R56.9 Unspecified convulsions; Z86.73 Personal history of transient ischemic attack (TIA), and cerebral infarction without residual deficits; I25.10 Atherosclerotic heart disease of native coronary artery without angina pectoris; Z85.41 Personal history of malignant neoplasm of cervix uteri; Z85.3 Personal history of malignant neoplasm of breast; Z98.61 Coronary angioplasty status; F17.200 Nicotine dependence, unspecified, uncomplicated; Z79.4 Long term (current) use of insulin; Z79.82 Long term (current) use of aspirin
CPT/HCPCS: 80048; 83605; 85027; 85610; 85730; 93926; 99281; 99284

== ENCOUNTER 2017-01-23 21:51 | Emergency (ER) | payer OTHER ==
[~2017-01-23] VITALS: Ht 162.6 cm; Wt 51.8 kg
[2017-01-24] MEDS ORDERED: PROMETHAZINE HC25 M1 PO (00:47)
[2017-01-24] MEDS ORDERED: NORCO 5/3251 TABLET PO (00:47)
[2017-01-24 01:29] VITALS: BP 175/73
== END 2017-01-24 01:30 | disposition home or self-care (01) ==
LOC: EME 21:51 → EXP 21:51
DX: E11.21 Type 2 diabetes mellitus with diabetic nephropathy (principal); G89.29 Other chronic pain; Z79.4 Long term (current) use of insulin; G40.909 Epilepsy, unspecified, not intractable, without status epilepticus; J44.9 Chronic obstructive pulmonary disease, unspecified; E78.5 Hyperlipidemia, unspecified; I10 Essential (primary) hypertension; I25.2 Old myocardial infarction; Z86.73 Personal history of transient ischemic attack (TIA), and cerebral infarction without residual deficits; Z91.040 Latex allergy status; Z88.0 Allergy status to penicillin; Z88.1 Allergy status to other antibiotic agents; F17.200 Nicotine dependence, unspecified, uncomplicated
CPT/HCPCS: 99281; 99284; J2550

== ENCOUNTER 2017-02-05 00:47 | Emergency (ER) | payer OTHER ==
[~2017-02-05] VITALS: Ht 162.6 cm; Wt 48.9 kg
[~2017-02-05 00:47] MED LIST changes: +PROMETHAZINE HC25 M1 PO
[2017-02-05 01:49] LABS: MCH 30.6 PG (29.0-34.0); MCHC 34.6 G/DL (30.0-36.0); MCV 88.4 FL (83-99); MEAN PLAT.VOLUME 10.7 uM^3 (9.5-12.4); PLATELET COUNT 229 K/uL (156-360); RBC DIS.WIDTH-CV 12.2 % (11.8-14.6); RBC DIS.WIDTH-SD 39.8 % (39-53); RED BLOOD COUNT 3.96 M/uL (3.80-5.20); WHITE BLOOD COUNT 7.1 K/uL (4.1-10.2)
[2017-02-05 01:58] LABS: PROTHROMBIN TIME 10.4 (9.2-11.2); PTT 24.1 (25-32)
[2017-02-05 01:59] LABS: CHLORIDE 102 mEq/L (99-109); POTASSIUM 3.9 mEq/L (3.7-5.4); SODIUM 136 mEq/L (136-147)
[2017-02-05 02:02] LABS: ANION GAP 9 MEQ/L (2-14)
[2017-02-05 02:04] LABS: GFR ESTIMATE (CALCULATED) > 59 mL/min/
[2017-02-05 02:05] LABS: UREA NITROGEN (BUN) 15 mg/dL (9-23)
[2017-02-05 02:11] LABS: TROP-I INTERPRETATION NEGATIVE; TROPONIN-I < 0.01 ng/mL (0.0-0.30)
[2017-02-05 02:15] LABS: GLUCOSE 404 mg/dL (70-99)
[2017-02-05 02:50] VITALS: BP 159/77
== END 2017-02-05 03:00 | disposition left against medical advice (07) ==
LOC: EME 00:47
PROVIDERS: Emergency Medicine
DX: I20.9 Angina pectoris, unspecified (principal); Z53.20 Procedure and treatment not carried out because of patient's decision for unspecified reasons; E11.9 Type 2 diabetes mellitus without complications; J44.9 Chronic obstructive pulmonary disease, unspecified; E78.5 Hyperlipidemia, unspecified; I10 Essential (primary) hypertension; I25.2 Old myocardial infarction; K21.9 Gastro-esophageal reflux disease without esophagitis; Z86.73 Personal history of transient ischemic attack (TIA), and cerebral infarction without residual deficits; Z79.4 Long term (current) use of insulin; Z79.02 Long term (current) use of antithrombotics/antiplatelets; F17.200 Nicotine dependence, unspecified, uncomplicated
CPT/HCPCS: 71020; 80048; 84484; 85027; 85610; 85730; 93005; 99281; 99284; J1815; J7030

== ENCOUNTER 2017-02-07 12:13 | Inpatient (IN) | payer OTHER ==
[~2017-02-07] VITALS: Ht 162.6 cm; Wt 56.4 kg
[2017-02-07 15:41] LABS: HEMATOCRIT 38.6 % (36.0-46.0); MCH 30.2 PG (29.0-34.0); MCHC 34.5 G/DL (30.0-36.0); MCV 87.7 FL (83-99); MEAN PLAT.VOLUME 10.5 uM^3 (9.5-12.4); PLATELET COUNT 247 K/uL (156-360); RBC DIS.WIDTH-CV 12.3 % (11.8-14.6); RBC DIS.WIDTH-SD 39.5 % (39-53); WHITE BLOOD COUNT 8.1 K/uL (4.1-10.2)
[2017-02-07 15:51] LABS: CHLORIDE 103 mEq/L (99-109); SODIUM 138 mEq/L (136-147)
[2017-02-07 15:53] LABS: GLUCOSE 353 mg/dL (70-99)
[2017-02-07 15:54] LABS: ANION GAP 9 MEQ/L (2-14)
[2017-02-07 15:57] LABS: GFR ESTIMATE (CALCULATED) > 59 mL/min/
[2017-02-07 15:58] LABS: UREA NITROGEN (BUN) 15 mg/dL (9-23)
[2017-02-07 15:59] LABS: ADD MIUA? YES; BILIRUBIN NEGATIVE; BLOOD NEGATIVE; COLOR YELLOW ((YELLOW)); GLUCOSE (STRIP) >=500; KETONES 5; LEUKOCYTES SMALL; NITRITE NEGATIVE; PROTEIN (STRIP) NEGATIVE; UROBILINOGEN 0.2 MG/DL (0.2-1.0)
[2017-02-07 16:01] LABS: BACTERIA NONE SEEN /HPF; EPITHELIAL CELLS RARE /HPF; MUCUS NONE SEEN /LPF; RED BLOOD CELLS 0-5 /HPF (0-5)
[2017-02-07] MEDS ORDERED: CLINDAMYCIN HC300 MG PO (17:00)
[2017-02-07 19:27] VITALS: BP 140/70; BP 187/80
[2017-02-07 20:42] VITALS: BP 160/78
[2017-02-07 21:16] LABS: POINT-OF-CARE METER ID UU13113702; POINT-OF-CARE USER ID AHSUCEG
[2017-02-07 21:22] LABS: HEMATOCRIT 36.8 % (36.0-46.0); MCH 30.3 PG (29.0-34.0); MCHC 34.8 G/DL (30.0-36.0); MCV 87.2 FL (83-99); MEAN PLAT.VOLUME 10.5 uM^3 (9.5-12.4); PLATELET COUNT 213 K/uL (156-360); RBC DIS.WIDTH-CV 12.2 % (11.8-14.6); RBC DIS.WIDTH-SD 39.2 % (39-53); RED BLOOD COUNT 4.22 M/uL (3.80-5.20); WHITE BLOOD COUNT 7.5 K/uL (4.1-10.2)
[2017-02-07 21:31] LABS: CHLORIDE 100 mEq/L (99-109); POTASSIUM 3.9 mEq/L (3.7-5.4); SODIUM 136 mEq/L (136-147)
[2017-02-07 21:33] LABS: GLUCOSE 398 mg/dL (70-99)
[2017-02-07 21:34] LABS: ANION GAP 11 MEQ/L (2-14)
[2017-02-07 21:35] LABS: TOTAL BILIRUBIN 0.4 mg/dL (0.0-1.0)
[2017-02-07 21:36] LABS: ALKALINE PHOSPHATASE 186 IU/L (3-129)
[2017-02-07 21:37] LABS: GFR ESTIMATE (CALCULATED) > 59 mL/min/
[2017-02-07 21:38] LABS: UREA NITROGEN (BUN) 15 mg/dL (9-23)
[2017-02-07 21:45] LABS: TROP-I INTERPRETATION NEGATIVE; TROPONIN-I 0.02 ng/mL (0.0-0.30)
[2017-02-07 22:00] VITALS: BP 149/59; BP 158/71
[2017-02-07 23:00] VITALS: BP 136/56
[2017-02-07 23:47] LABS: METH RESISTANT S AUREUS PCR NEGATIVE (NEGATIVE)
[2017-02-07 23:48] LABS: PROBE CHECK PASS; SPECIMEN PROCESSING CONTROL PASS
[2017-02-08] VITALS (10 sets, daily range): BP systolic 126–148; BP diastolic 54–80
[2017-02-08 05:57] LABS: ANION GAP 9 MEQ/L (2-14); CHLORIDE 106 MEQ/L (99-109); GFR ESTIMATE (CALCULATED) > 59 mL/min/; HDL CHOLESTEROL 42 MG/DL (Desirable>=50); LDL CHOLESTEROL 134 mg/dL (Desirable<100); NON-HDL CHOLESTEROL 150 mg/dL (Desirable<160); POTASSIUM 3.8 MEQ/L (3.7-5.4); SAMPLE HEMOLYSIS CHECK 0; SAMPLE ICTERIC CHECK 0; SAMPLE LIPEMIA CHECK 0; SODIUM 139 MEQ/L (136-147); TOTAL CHOLESTEROL 192 mg/dL (Desirable<200); TRIGLYCERIDES 80 MG/DL (Normal: <150); UREA NITROGEN (BUN) 13 mg/dL (9-23)
[2017-02-08 06:33] LABS: GLUCOSE 66 mg/dL (70-99)
[2017-02-08 08:18] LABS: Estimated Average Glucose 255 mg/dL (70-123); HEMOGLOBIN A1c (GLYCOHEMOGLOB) 10.5 % HGB (Below 5.7)
[2017-02-08 09:22] LABS: TROP-I INTERPRETATION NEGATIVE; TROPONIN-I 0.03 ng/mL (0.0-0.30)
[2017-02-08 17:16] LABS: TROP-I INTERPRETATION NEGATIVE; TROPONIN-I 0.02 ng/mL (0.0-0.30)
[2017-02-08 17:24] LABS: INTER. NORMALIZED RATIO 1.1; PROTHROMBIN TIME 10.7 (9.2-11.2)
[2017-02-08 21:43] LABS: POINT-OF-CARE METER ID UU13113698
[2017-02-09 03:20] VITALS: BP 146/66
[2017-02-09 05:53] LABS: PROTHROMBIN TIME 10.5 (9.2-11.2)
[2017-02-09 07:25] VITALS: BP 129/60
[2017-02-09 11:18] LABS: POINT-OF-CARE METER ID UU13113781
[2017-02-09 14:32] VITALS: BP 144/63
[2017-02-09 17:15] LABS: POINT-OF-CARE METER ID UU13113675
[2017-02-09 20:29] VITALS: BP 154/67
[2017-02-09 23:15] LABS: POINT-OF-CARE METER ID UU13113781
[2017-02-09 23:45] VITALS: BP 146/67
[2017-02-10] VITALS (7 sets, daily range): BP systolic 135–176; BP diastolic 61–74
[2017-02-10 06:29] LABS: INTER. NORMALIZED RATIO 1.1; PROTHROMBIN TIME 10.8 (9.2-11.2)
[2017-02-11 02:26] LABS: POINT-OF-CARE METER ID UU14208750
[2017-02-11 04:10] VITALS: BP 137/64
[2017-02-11 06:14] LABS: INTER. NORMALIZED RATIO 1.2; PROTHROMBIN TIME 12.3 (9.2-11.2)
[2017-02-11 07:00] LABS: POINT-OF-CARE METER ID UU14208750
[2017-02-11 07:45] VITALS: BP 135/59
[2017-02-11 12:00] VITALS: BP 118/58
[2017-02-11 16:15] VITALS: BP 130/61
[2017-02-11 19:11] VITALS: BP 128/61
[2017-02-11 21:46] LABS: POINT-OF-CARE METER ID UU14208750
[2017-02-11 23:08] VITALS: BP 159/74
[2017-02-12 04:19] VITALS: BP 132/59
[2017-02-12 06:12] LABS: POINT-OF-CARE METER ID UU14208750
[2017-02-12 06:45] LABS: INTER. NORMALIZED RATIO 1.4; PROTHROMBIN TIME 14.1 (9.2-11.2)
[2017-02-12 07:03] VITALS: BP 137/64
[2017-02-12 11:55] VITALS: BP 134/63
[2017-02-12 12:11] LABS: POINT-OF-CARE METER ID UU14208750; POINT-OF-CARE USER ID PUTDRM
[2017-02-12 15:40] VITALS: BP 137/62
[2017-02-12 16:12] LABS: POINT-OF-CARE METER ID UU14208750
[2017-02-12 21:44] LABS: POINT-OF-CARE METER ID UU14208750
[2017-02-13] VITALS: BP 124/58
[2017-02-13 06:53] LABS: INTER. NORMALIZED RATIO 2.3
[2017-02-13 07:37] VITALS: BP 131/60
[2017-02-13 12:12] LABS: POINT-OF-CARE METER ID UU14208750
[2017-02-13 16:16] VITALS: BP 133/61
[2017-02-13 16:58] LABS: BASE EXCESS 1.9 mEq/L (-3 to +3); BICARBONATE 25.6 mEq/L (22-26); CARBOXY HGB 1.9 % (0-5); COMMENTS - BLOOD GASES C+; DEVICE NCH; METHEMOGLOBIN 1.8 % (0-1.5); O2 FLOW 15 L/MIN; PCO2 36 mm Hg (35-45); PO2 57 mm Hg (80-100); SITE RB; pH 7.46 (7.35-7.45)
[2017-02-13 17:25] LABS: POINT-OF-CARE METER ID UU14208750
[2017-02-13 17:30] VITALS: BP 143/63
[2017-02-13 17:47] LABS: POINT-OF-CARE METER ID UU14208750
[2017-02-13 17:54] VITALS: BP 138/63
[2017-02-13 18:23] LABS: HEMATOCRIT 33.3 % (36.0-46.0)
[2017-02-13 18:24] LABS: MCV 91.2 FL (83-99)
[2017-02-13 18:38] VITALS: BP 138/64
[2017-02-13 18:39] LABS: TROP-I INTERPRETATION POSITIVE; TROPONIN-I 1.38 ng/mL (0.0-0.30)
[2017-02-14] VITALS (17 sets, daily range): BP systolic 88–138; BP diastolic 52–77
[2017-02-14 02:29] LABS: POINT-OF-CARE METER ID UU13113698
[2017-02-14 07:28] LABS: PROTHROMBIN TIME 53.9 (9.2-11.2)
[2017-02-14 08:29] LABS: HEMATOCRIT 31.8 % (36.0-46.0); MCHC 33.6 G/DL (30.0-36.0); MCV 92.2 FL (83-99); MEAN PLAT.VOLUME 11.2 uM^3 (9.5-12.4); PLATELET COUNT 209 K/uL (156-360); RBC DIS.WIDTH-CV 13.3 % (11.8-14.6); RBC DIS.WIDTH-SD 45.3 % (39-53); RED BLOOD COUNT 3.45 M/uL (3.80-5.20); WHITE BLOOD COUNT 13.1 K/uL (4.1-10.2)
[2017-02-14 08:41] LABS: ANION GAP 10 MEQ/L (2-14); CHLORIDE 100 MEQ/L (99-109); GFR ESTIMATE (CALCULATED) > 59 mL/min/; GLUCOSE 86 mg/dL (70-99); POTASSIUM 4.5 MEQ/L (3.7-5.4); SAMPLE HEMOLYSIS CHECK 0; SAMPLE ICTERIC CHECK 0; SAMPLE LIPEMIA CHECK 0; SODIUM 132 MEQ/L (136-147); UREA NITROGEN (BUN) 24 mg/dL (9-23)
[2017-02-14 11:52] LABS: POINT-OF-CARE METER ID UU13113698
[2017-02-14 12:02] LABS: BASE EXCESS -1.2 mEq/L (-3 to +3); BICARBONATE 22.2 mEq/L (22-26); CARBOXY HGB 1.7 % (0-5); METHEMOGLOBIN 1.8 % (0-1.5); PCO2 32 mm Hg (35-45); pH 7.45 (7.35-7.45)
[2017-02-14 12:03] LABS: COMMENTS - BLOOD GASES A+C+; DEVICE NRBM; O2 FLOW 15 L/MIN; PO2 39 mm Hg (80-100); SITE LR
[2017-02-14 12:04] LABS: TOTAL RESP RATE 10 resp/min
[2017-02-14 12:17] LABS: POINT-OF-CARE METER ID UU13113698
[2017-02-14 12:38] LABS: EOSINOPHIL (%) 0 % (0-5); HEMATOCRIT 33.3 % (36.0-46.0); IMMATURE GRANULOCYTE (%) 0.8 % (0.0-0.7); IMMATURE GRANULOCYTE COUNT 0.1 K/uL; LYMPHOCYTE COUNT 0.6 K/uL (1.0-2.8); MCH 29.9 PG (29.0-34.0); MCHC 32.7 G/DL (30.0-36.0); MCV 91.5 FL (83-99); MEAN PLAT.VOLUME 10.9 uM^3 (9.5-12.4); MONOCYTE (%) 4.8 % (3-12); MONOCYTE COUNT 0.7 K/uL (0-0.8); NEUTROPHIL (%) 89.8 % (45-76); PLATELET COUNT 216 K/uL (156-360); RBC DIS.WIDTH-CV 13.1 % (11.8-14.6); RBC DIS.WIDTH-SD 43.8 % (39-53); RED BLOOD COUNT 3.64 M/uL (3.80-5.20); WHITE BLOOD COUNT 14.4 K/uL (4.1-10.2)
[2017-02-14 12:45] LABS: TROP-I INTERPRETATION POSITIVE; TROPONIN-I 1.56 ng/mL (0.0-0.30)
[2017-02-14 12:51] LABS: CHLORIDE 101 mEq/L (99-109); POTASSIUM 4.3 mEq/L (3.7-5.4); SODIUM 133 mEq/L (136-147)
[2017-02-14 12:52] LABS: MAGNESIUM 1.8 mg/dL (1.3-2.7)
[2017-02-14 12:53] LABS: GLUCOSE 129 mg/dL (70-99)
[2017-02-14 12:55] LABS: ANION GAP 11 MEQ/L (2-14)
[2017-02-14 12:57] LABS: GFR ESTIMATE (CALCULATED) 54 mL/min/
[2017-02-14 12:58] LABS: ALKALINE PHOSPHATASE 280 IU/L (3-129); TOTAL BILIRUBIN 0.9 mg/dL (0.0-1.0); UREA NITROGEN (BUN) 29 mg/dL (9-23)
[2017-02-14 12:59] LABS: DIRECT BILIRUBIN 0.6 mg/dL (0.0-0.3); PTT 56.5 (25-32)
[2017-02-14 13:01] LABS: CREATINE KINASE 98 IU/L (1-294); TOTAL CK 98 IU/L (1-294)
[2017-02-14 13:02] LABS: INTER. NORMALIZED RATIO 6.7; PROTHROMBIN TIME 72.1 (9.2-11.2)
[2017-02-14 13:07] LABS: CK-MB 1.8 ng/mL (0.0-4.9); TROP-I INTERPRETATION POSITIVE; TROPONIN-I 1.62 ng/mL (0.0-0.30)
[2017-02-14 13:42] LABS: ADD MIUA? YES; BILIRUBIN NEGATIVE; BLOOD NEGATIVE; COLOR YELLOW ((YELLOW)); GLUCOSE (STRIP) 50; KETONES NEGATIVE; LEUKOCYTES SMALL; NITRITE NEGATIVE; PROTEIN (STRIP) NEGATIVE; UROBILINOGEN 0.2 MG/DL (0.2-1.0)
[2017-02-14 13:50] LABS: METH RESISTANT S AUREUS PCR NEGATIVE (NEGATIVE); PROBE CHECK PASS; SPECIMEN PROCESSING CONTROL PASS
[2017-02-14 14:01] LABS: BASE EXCESS -1.9 mEq/L (-3 to +3); BICARBONATE 22.1 mEq/L (22-26); CARBOXY HGB 1.7 % (0-5); METHEMOGLOBIN 1.7 % (0-1.5); PCO2 34 mm Hg (35-45); pH 7.42 (7.35-7.45)
[2017-02-14 14:03] LABS: COMMENTS - BLOOD GASES A+C+; PO2 67 mm Hg (80-100); SITE LR
[2017-02-14 14:04] LABS: DEVICE 840 PB MASK; FI02 50 %; MODE SPONT NIV; PEEP 8 CM/H20; PRES. SUPPORT 15 CM/H2O; TOTAL RESP RATE 27 resp/min
[2017-02-14 14:15] LABS: SPECIFIC GRAVITY 1.064 (1.000-1.030)
[2017-02-14 14:21] LABS: BACTERIA NONE SEEN /HPF; EPITHELIAL CELLS RARE /HPF; MUCUS NONE SEEN /LPF; RED BLOOD CELLS 0-5 /HPF (0-5); UCUL ADDED? NO; WHITE BLOOD CELLS 0-5 /HPF (0-5)
[2017-02-14 17:51] LABS: POINT-OF-CARE METER ID UU14208751
[2017-02-14 18:32] LABS: TROP-I INTERPRETATION POSITIVE; TROPONIN-I 1.15 ng/mL (0.0-0.30)
[2017-02-14 21:10] LABS: POINT-OF-CARE METER ID UU14174217
[2017-02-15] VITALS (34 sets, daily range): BP systolic 82–149; BP diastolic 48–78
[2017-02-15 01:02] LABS: CREATINE KINASE 76 IU/L (1-294); TOTAL CK 76 IU/L (1-294)
[2017-02-15 01:11] LABS: CK-MB 1.9 ng/mL (0.0-4.9)
[2017-02-15 01:13] LABS: TROP-I INTERPRETATION POSITIVE
[2017-02-15 05:37] LABS: EOSINOPHIL (%) 0 % (0-5); HEMATOCRIT 28.1 % (36.0-46.0); IMMATURE GRANULOCYTE (%) 0.5 % (0.0-0.7); IMMATURE GRANULOCYTE COUNT 0.1 K/uL; INSTRUMENT ABS NEUTROPHIL CT 9.5 K/uL; LYMPHOCYTE COUNT 0.3 K/uL (1.0-2.8); MCHC 33.5 G/DL (30.0-36.0); MCV 89.8 FL (83-99); MONOCYTE (%) 6.3 % (3-12); MONOCYTE COUNT 0.7 K/uL (0-0.8); NEUTROPHIL (%) 90.2 % (45-76); NEUTROPHIL COUNT 9.5 K/uL (1.8-6.4); PLATELET COUNT 199 K/uL (156-360); RBC DIS.WIDTH-CV 13.2 % (11.8-14.6); RBC DIS.WIDTH-SD 43.2 % (39-53); RED BLOOD COUNT 3.13 M/uL (3.80-5.20); WHITE BLOOD COUNT 10.5 K/uL (4.1-10.2)
[2017-02-15 06:03] LABS: TROP-I INTERPRETATION POSITIVE; TROPONIN-I 1.01 ng/mL (0.0-0.30)
[2017-02-15 06:11] LABS: INTER. NORMALIZED RATIO 11.3
[2017-02-15 06:12] LABS: PROTHROMBIN TIME 124.1 (9.2-11.2)
[2017-02-15 06:15] LABS: CK-MB 1.8 ng/mL (0.0-4.9)
[2017-02-15 08:13] LABS: ANION GAP 13 MEQ/L (2-14); CHLORIDE 101 MEQ/L (99-109); CREATINE KINASE 54 IU/L (1-294); GFR ESTIMATE (CALCULATED) 54 mL/min/; GLUCOSE 169 mg/dL (70-99); MAGNESIUM 2.7 mg/dl (1.3-2.7); POTASSIUM 4.3 MEQ/L (3.7-5.4); SAMPLE HEMOLYSIS CHECK 0; SAMPLE ICTERIC CHECK 0; SAMPLE LIPEMIA CHECK 0; SODIUM 135 MEQ/L (136-147); TOTAL CK 54 IU/L (1-294); UREA NITROGEN (BUN) 40 mg/dL (9-23)
[2017-02-15 08:36] LABS: POINT-OF-CARE METER ID UU14208751
[2017-02-15 09:38] LABS: BASE EXCESS 0.8 mEq/L (-3 to +3); BICARBONATE 25.2 mEq/L (22-26); CARBOXY HGB 2.1 % (0-5); METHEMOGLOBIN 1.1 % (0-1.5); PCO2 38 mm Hg (35-45); pH 7.43 (7.35-7.45)
[2017-02-15 09:39] LABS: COMMENTS - BLOOD GASES C+; PO2 88 mm Hg (80-100); SITE RB
[2017-02-15 09:40] LABS: DEVICE HEATED HF NC; FI02 100 %; O2 FLOW 60 L/MIN; TOTAL RESP RATE 21 resp/min
[2017-02-15 12:22] LABS: HEMATOCRIT 21.2 % (36.0-46.0); MCV 91.4 FL (83-99)
[2017-02-15 12:42] LABS: TROP-I INTERPRETATION POSITIVE; TROPONIN-I 0.78 ng/mL (0.0-0.30)
[2017-02-15 12:51] LABS: CREATINE KINASE 24 IU/L (1-294); TOTAL CK 24 IU/L (1-294)
[2017-02-15 12:53] LABS: CK-MB 1.1 ng/mL (0.0-4.9)
[2017-02-15 14:07] LABS: CK-MB 2.3 ng/mL (0.0-4.9)
[2017-02-15 14:26] LABS: CREATINE KINASE 78 IU/L (1-294); TOTAL CK 78 IU/L (1-294)
[2017-02-15 16:18] LABS: POINT-OF-CARE METER ID UU14208751
[2017-02-15 18:54] LABS: INTER. NORMALIZED RATIO 1.7; PROTHROMBIN TIME 18.5 SEC (10.2-12.9)
[2017-02-15 19:03] LABS: MCV 89.4 FL (83-99)
[2017-02-15 19:14] LABS: TROP-I INTERPRETATION POSITIVE
[2017-02-15 19:15] LABS: TROPONIN-I 0.94 ng/mL (0.0-0.30)
[2017-02-15 21:11] LABS: BASE EXCESS -1.5 mEq/L (-3 to +3); BICARBONATE 22.9 mEq/L (22-26); CARBOXY HGB 1.8 % (0-5); COMMENTS - BLOOD GASES A+C+; DEVICE 980; FI02 100 %; MECHANICAL RATE 24 resp/min; METHEMOGLOBIN 1.3 % (0-1.5); MODE SPONT; PCO2 37 mm Hg (35-45); PEEP 10 CM/H20; PO2 58 mm Hg (80-100); PRES. SUPPORT 12 CM/H2O; SITE LR; TIDAL VOLUME 447 ML
[2017-02-15 21:29] LABS: POINT-OF-CARE METER ID UU14162636
[2017-02-15 21:57] LABS: BASE EXCESS -0.4 mEq/L (-3 to +3); BICARBONATE 24.1 mEq/L (22-26); COMMENTS - BLOOD GASES A+C+; DEVICE VENT; FI02 100 %; METHEMOGLOBIN 1.5 % (0-1.5); MODE SPON; PCO2 38 mm Hg (35-45); PO2 61 mm Hg (80-100); SITE LR; pH 7.41 (7.35-7.45)
[2017-02-15 21:58] LABS: CONTINUOUS POS AIRWAY PRESSURE 10 cm H2O; PRES. SUPPORT 12 CM/H2O; TOTAL RESP RATE 38 resp/min
[2017-02-16] VITALS (25 sets, daily range): BP systolic 115–156; BP diastolic 60–84
[2017-02-16 00:32] LABS: BASE EXCESS -1.2 mEq/L (-3 to +3); BICARBONATE 23.6 mEq/L (22-26); CARBOXY HGB 1.9 % (0-5); COMMENTS - BLOOD GASES A+C+; METHEMOGLOBIN 1.4 % (0-1.5); PCO2 39 mm Hg (35-45); PO2 82 mm Hg (80-100); SITE LR; pH 7.39 (7.35-7.45)
[2017-02-16 00:33] LABS: DEVICE NIV; FI02 100 %; MODE SPONT; PEEP 10 CM/H20; PRES. SUPPORT 12 CM/H2O; TOTAL RESP RATE 33 resp/min
[2017-02-16 04:12] LABS: EOSINOPHIL (%) 0 % (0-5); HEMATOCRIT 35.2 % (36.0-46.0); IMMATURE GRANULOCYTE (%) 0.6 % (0.0-0.7); IMMATURE GRANULOCYTE COUNT 0.1 K/uL; INSTRUMENT ABS NEUTROPHIL CT 15.1 K/uL; LYMPHOCYTE COUNT 0.4 K/uL (1.0-2.8); MCH 29.9 PG (29.0-34.0); MCHC 33.8 G/DL (30.0-36.0); MCV 88.4 FL (83-99); MEAN PLAT.VOLUME 10.7 uM^3 (9.5-12.4); MONOCYTE COUNT 0.7 K/uL (0-0.8); NEUTROPHIL (%) 92.8 % (45-76); NEUTROPHIL COUNT 15.1 K/uL (1.8-6.4); PLATELET COUNT 221 K/uL (156-360); RBC DIS.WIDTH-SD 45.2 % (39-53); RED BLOOD COUNT 3.98 M/uL (3.80-5.20); WHITE BLOOD COUNT 16.2 K/uL (4.1-10.2)
[2017-02-16 04:19] LABS: INTER. NORMALIZED RATIO 1.3; PROTHROMBIN TIME 14.4 SEC (10.2-12.9)
[2017-02-16 04:26] LABS: CHLORIDE 106 mEq/L (99-109); POTASSIUM 3.6 mEq/L (3.7-5.4); SODIUM 139 mEq/L (136-147)
[2017-02-16 04:29] LABS: ANION GAP 11 MEQ/L (2-14); GLUCOSE 87 mg/dL (70-99); MAGNESIUM 2.6 mg/dL (1.3-2.7)
[2017-02-16 04:32] LABS: GFR ESTIMATE (CALCULATED) 49 mL/min/; UREA NITROGEN (BUN) 48 mg/dL (9-23)
[2017-02-16 05:22] LABS: BASE EXCESS -2.2 mEq/L (-3 to +3); BICARBONATE 24.2 mEq/L (22-26); METHEMOGLOBIN 1.4 % (0-1.5); PCO2 47 mm Hg (35-45); PO2 75 mm Hg (80-100); SITE RR; pH 7.32 (7.35-7.45)
[2017-02-16 05:24] LABS: COMMENTS - BLOOD GASES A+C+; DEVICE VENT; FI02 80 %; MODE SPONT
[2017-02-16 05:25] LABS: PEEP 10 CM/H20; PRES. SUPPORT 12 CM/H2O; TOTAL RESP RATE 23 resp/min
[2017-02-16 11:28] LABS: POINT-OF-CARE METER ID UU14162636
[2017-02-16 12:17] LABS: BASE EXCESS -0.6 mEq/L (-3 to +3); BICARBONATE 24.9 mEq/L (22-26); CARBOXY HGB 1.7 % (0-5); METHEMOGLOBIN 1.6 % (0-1.5); PCO2 43 mm Hg (35-45); PO2 47 mm Hg (80-100); SITE RB; pH 7.37 (7.35-7.45)
[2017-02-16 12:18] LABS: CONTINUOUS POS AIRWAY PRESSURE 10 cm H2O; DEVICE 980; FI02 100 %; MODE NIV SPON; PRES. SUPPORT 12 CM/H2O; TOTAL RESP RATE 44 resp/min
[2017-02-16 12:21] LABS: COMMENTS - BLOOD GASES C+
[2017-02-16 14:39] LABS: BASE EXCESS 0.8 mEq/L (-3 to +3); BICARBONATE 25.3 mEq/L (22-26); CARBOXY HGB 1.8 % (0-5); METHEMOGLOBIN 1.5 % (0-1.5); PCO2 39 mm Hg (35-45); pH 7.42 (7.35-7.45)
[2017-02-16 14:40] LABS: COMMENTS - BLOOD GASES C+; DEVICE 980; FI02 60 %; MECHANICAL RATE 20 resp/min; MODE AC/VC+; PEEP 15 CM/H20; PO2 97 mm Hg (80-100); SITE RB; TIDAL VOLUME 400 ML
[2017-02-17] VITALS (21 sets, daily range): BP systolic 0–137; BP diastolic 0–72
[2017-02-17 02:53] LABS: POINT-OF-CARE METER ID UU14162636
[2017-02-17 05:43] LABS: EOSINOPHIL (%) 0 % (0-5); HEMATOCRIT 34.6 % (36.0-46.0); IMMATURE GRANULOCYTE (%) 0.5 % (0.0-0.7); IMMATURE GRANULOCYTE COUNT 0.1 K/uL; INSTRUMENT ABS NEUTROPHIL CT 9.5 K/uL; LYMPHOCYTE COUNT 0.2 K/uL (1.0-2.8); MCH 30.2 PG (29.0-34.0); MCHC 34.7 G/DL (30.0-36.0); MCV 87.2 FL (83-99); MEAN PLAT.VOLUME 10.8 uM^3 (9.5-12.4); MONOCYTE (%) 3.1 % (3-12); MONOCYTE COUNT 0.3 K/uL (0-0.8); NEUTROPHIL COUNT 9.5 K/uL (1.8-6.4); PLATELET COUNT 238 K/uL (156-360); RBC DIS.WIDTH-CV 14.1 % (11.8-14.6); RBC DIS.WIDTH-SD 45.9 % (39-53); RED BLOOD COUNT 3.97 M/uL (3.80-5.20); WHITE BLOOD COUNT 10.1 K/uL (4.1-10.2)
[2017-02-17 06:20] LABS: ANION GAP 12 MEQ/L (2-14); CHLORIDE 105 MEQ/L (99-109); GFR ESTIMATE (CALCULATED) > 59 mL/min/; GLUCOSE 100 mg/dL (70-99); POTASSIUM 3.1 MEQ/L (3.7-5.4); SAMPLE HEMOLYSIS CHECK 0; SAMPLE ICTERIC CHECK 0; SAMPLE LIPEMIA CHECK 0; SODIUM 142 MEQ/L (136-147); UREA NITROGEN (BUN) 32 mg/dL (9-23)
[2017-02-17 06:23] LABS: MAGNESIUM 2.1 mg/dl (1.3-2.7)
[2017-02-17 09:52] LABS: POINT-OF-CARE METER ID UU14162636
[2017-02-17 14:32] LABS: POINT-OF-CARE METER ID UU14162636
[2017-02-17 18:25] LABS: POINT-OF-CARE METER ID UU13113748
[2017-02-18] VITALS (19 sets, daily range): BP systolic 113–137; BP diastolic 56–81
[2017-02-18 01:50] LABS: POINT-OF-CARE METER ID UU14174217
[2017-02-18 05:36] LABS: POINT-OF-CARE METER ID UU14162636
[2017-02-18 05:43] LABS: EOSINOPHIL (%) 0 % (0-5); HEMATOCRIT 34.6 % (36.0-46.0); IMMATURE GRANULOCYTE (%) 0.3 % (0.0-0.7); INSTRUMENT ABS NEUTROPHIL CT 8.4 K/uL; LYMPHOCYTE COUNT 0.3 K/uL (1.0-2.8); MCH 29.3 PG (29.0-34.0); MCHC 33.2 G/DL (30.0-36.0); MCV 88.3 FL (83-99); MEAN PLAT.VOLUME 10.4 uM^3 (9.5-12.4); MONOCYTE (%) 5.4 % (3-12); MONOCYTE COUNT 0.5 K/uL (0-0.8); NEUTROPHIL (%) 90.6 % (45-76); NEUTROPHIL COUNT 8.4 K/uL (1.8-6.4); PLATELET COUNT 286 K/uL (156-360); RBC DIS.WIDTH-CV 14.5 % (11.8-14.6); RBC DIS.WIDTH-SD 46.7 % (39-53); RED BLOOD COUNT 3.92 M/uL (3.80-5.20); WHITE BLOOD COUNT 9.3 K/uL (4.1-10.2)
[2017-02-18 06:51] LABS: ANION GAP 11 MEQ/L (2-14); CHLORIDE 104 MEQ/L (99-109); GFR ESTIMATE (CALCULATED) > 59 mL/min/; MAGNESIUM 2.1 mg/dl (1.3-2.7); SAMPLE HEMOLYSIS CHECK 0; SAMPLE ICTERIC CHECK 0; SAMPLE LIPEMIA CHECK 0; SODIUM 139 MEQ/L (136-147); UREA NITROGEN (BUN) 38 mg/dL (9-23)
[2017-02-18 06:52] LABS: GLUCOSE 312 mg/dL (70-99); POTASSIUM 3.9 MEQ/L (3.7-5.4)
[2017-02-19] VITALS (18 sets, daily range): BP systolic 126–146; BP diastolic 54–75
[2017-02-19 02:24] LABS: POINT-OF-CARE METER ID UU14174217
[2017-02-19 05:06] LABS: POINT-OF-CARE METER ID UU14174217
[2017-02-19 05:13] LABS: EOSINOPHIL (%) 0.2 % (0-5); HEMATOCRIT 33.9 % (36.0-46.0); IMMATURE GRANULOCYTE (%) 0.7 % (0.0-0.7); IMMATURE GRANULOCYTE COUNT 0.1 K/uL; INSTRUMENT ABS NEUTROPHIL CT 9.6 K/uL; LYMPHOCYTE COUNT 0.5 K/uL (1.0-2.8); MCHC 33.9 G/DL (30.0-36.0); MCV 88.5 FL (83-99); MEAN PLAT.VOLUME 10.3 uM^3 (9.5-12.4); MONOCYTE (%) 3.8 % (3-12); MONOCYTE COUNT 0.4 K/uL (0-0.8); NEUTROPHIL (%) 90.6 % (45-76); NEUTROPHIL COUNT 9.6 K/uL (1.8-6.4); PLATELET COUNT 327 K/uL (156-360); RBC DIS.WIDTH-CV 14.6 % (11.8-14.6); RBC DIS.WIDTH-SD 47.5 % (39-53); RED BLOOD COUNT 3.83 M/uL (3.80-5.20); WHITE BLOOD COUNT 10.5 K/uL (4.1-10.2)
[2017-02-19 05:36] LABS: ANION GAP 10 MEQ/L (2-14); CHLORIDE 108 MEQ/L (99-109); GFR ESTIMATE (CALCULATED) > 59 mL/min/; GLUCOSE 169 mg/dL (70-99); MAGNESIUM 2.2 mg/dl (1.3-2.7); POTASSIUM 3.8 MEQ/L (3.7-5.4); SAMPLE HEMOLYSIS CHECK 0; SAMPLE ICTERIC CHECK 0; SAMPLE LIPEMIA CHECK 0; SODIUM 143 MEQ/L (136-147); UREA NITROGEN (BUN) 37 mg/dL (9-23)
[2017-02-19 09:54] LABS: POINT-OF-CARE METER ID UU14174217
[2017-02-19 15:01] LABS: POINT-OF-CARE METER ID UU14174217
[2017-02-19 19:45] LABS: POINT-OF-CARE METER ID UU14174217
[2017-02-19 23:17] LABS: POINT-OF-CARE METER ID UU14174217
[2017-02-20] VITALS (16 sets, daily range): BP systolic 118–166; BP diastolic 53–77
[2017-02-20 01:48] LABS: POINT-OF-CARE METER ID UU14174217
[2017-02-20 06:00] LABS: EOSINOPHIL (%) 0.5 % (0-5); IMMATURE GRANULOCYTE (%) 1.8 % (0.0-0.7); IMMATURE GRANULOCYTE COUNT 0.2 K/uL; INSTRUMENT ABS NEUTROPHIL CT 7.1 K/uL; LYMPHOCYTE COUNT 0.7 K/uL (1.0-2.8); MCH 30.5 PG (29.0-34.0); MCV 89.7 FL (83-99); MEAN PLAT.VOLUME 10.2 uM^3 (9.5-12.4); MONOCYTE (%) 4.6 % (3-12); MONOCYTE COUNT 0.4 K/uL (0-0.8); NEUTROPHIL (%) 84.8 % (45-76); NEUTROPHIL COUNT 7.1 K/uL (1.8-6.4); PLATELET COUNT 346 K/uL (156-360); RBC DIS.WIDTH-CV 14.8 % (11.8-14.6); RBC DIS.WIDTH-SD 48.5 % (39-53); WHITE BLOOD COUNT 8.3 K/uL (4.1-10.2)
[2017-02-20 06:11] LABS: POINT-OF-CARE METER ID UU14174217
[2017-02-20 06:27] LABS: ANION GAP 13 MEQ/L (2-14); CHLORIDE 110 MEQ/L (99-109); MAGNESIUM 2.4 mg/dl (1.3-2.7); POTASSIUM 3.7 MEQ/L (3.7-5.4); SAMPLE HEMOLYSIS CHECK 0; SAMPLE ICTERIC CHECK 0; SAMPLE LIPEMIA CHECK 0; SODIUM 145 MEQ/L (136-147)
[2017-02-20 06:33] LABS: GFR ESTIMATE (CALCULATED) > 59 mL/min/; GLUCOSE 90 mg/dL (70-99); UREA NITROGEN (BUN) 33 mg/dL (9-23)
[2017-02-20 10:50] LABS: POINT-OF-CARE METER ID UU14174217
[2017-02-20 14:00] LABS: POINT-OF-CARE METER ID UU14174217
[2017-02-20 19:07] LABS: POINT-OF-CARE METER ID UU14174217
[2017-02-20 22:43] LABS: POINT-OF-CARE METER ID UU14208751
[2017-02-21] VITALS (12 sets, daily range): BP systolic 135–167; BP diastolic 64–81
[2017-02-21 00:13] LABS: POINT-OF-CARE METER ID UU14208751
[2017-02-21 05:38] LABS: EOSINOPHIL (%) 0.2 % (0-5); HEMATOCRIT 37.8 % (36.0-46.0); IMMATURE GRANULOCYTE (%) 2.6 % (0.0-0.7); IMMATURE GRANULOCYTE COUNT 0.3 K/uL; INSTRUMENT ABS NEUTROPHIL CT 9.3 K/uL; LYMPHOCYTE COUNT 0.8 K/uL (1.0-2.8); MCH 29.5 PG (29.0-34.0); MCHC 32.5 G/DL (30.0-36.0); MCV 90.6 FL (83-99); MONOCYTE COUNT 0.3 K/uL (0-0.8); NEUTROPHIL (%) 86.6 % (45-76); NEUTROPHIL COUNT 9.3 K/uL (1.8-6.4); PLATELET COUNT 382 K/uL (156-360); RBC DIS.WIDTH-CV 14.3 % (11.8-14.6); RBC DIS.WIDTH-SD 47.3 % (39-53); RED BLOOD COUNT 4.17 M/uL (3.80-5.20); WHITE BLOOD COUNT 10.7 K/uL (4.1-10.2)
[2017-02-21 05:49] LABS: POINT-OF-CARE METER ID UU14208751
[2017-02-21 06:11] LABS: ANION GAP 12 MEQ/L (2-14); CHLORIDE 109 MEQ/L (99-109); GFR ESTIMATE (CALCULATED) > 59 mL/min/; GLUCOSE 90 mg/dL (70-99); MAGNESIUM 2.2 mg/dl (1.3-2.7); POTASSIUM 4.2 MEQ/L (3.7-5.4); SAMPLE HEMOLYSIS CHECK 0; SAMPLE ICTERIC CHECK 0; SAMPLE LIPEMIA CHECK 0; SODIUM 143 MEQ/L (136-147); UREA NITROGEN (BUN) 27 mg/dL (9-23)
[2017-02-21 08:09] LABS: POINT-OF-CARE METER ID UU14174217
[2017-02-21 12:10] LABS: POINT-OF-CARE METER ID UU14208751
[2017-02-21 14:16] LABS: POINT-OF-CARE METER ID UU14208751
[2017-02-21 18:09] LABS: C DIFF TOXIN NEGATIVE (NEGATIVE)
[2017-02-21 18:12] LABS: PROBE CHECK PASS; SPECIMEN PROCESSING CONTROL PASS
[2017-02-21 18:34] LABS: POINT-OF-CARE METER ID UU14208750
[2017-02-21 20:21] LABS: POINT-OF-CARE METER ID UU14208750
[2017-02-21 21:31] LABS: POINT-OF-CARE METER ID UU14208750
[2017-02-21 23:46] LABS: POINT-OF-CARE METER ID UU14208750
[2017-02-22 04:03] VITALS: BP 126/62
[2017-02-22 06:58] LABS: EOSINOPHIL (%) 2.5 % (0-5); EOSINOPHIL COUNT 0.3 K/uL (0-0.3); HEMATOCRIT 38.4 % (36.0-46.0); IMMATURE GRANULOCYTE (%) 2.8 % (0.0-0.7); IMMATURE GRANULOCYTE COUNT 0.3 K/uL; INSTRUMENT ABS NEUTROPHIL CT 7.3 K/uL; MCH 30.5 PG (29.0-34.0); MCHC 33.3 G/DL (30.0-36.0); MCV 91.6 FL (83-99); MEAN PLAT.VOLUME 10.1 uM^3 (9.5-12.4); MONOCYTE (%) 5.1 % (3-12); MONOCYTE COUNT 0.5 K/uL (0-0.8); NEUTROPHIL (%) 70.2 % (45-76); NEUTROPHIL COUNT 7.3 K/uL (1.8-6.4); PLATELET COUNT 440 K/uL (156-360); RBC DIS.WIDTH-CV 14.2 % (11.8-14.6); RBC DIS.WIDTH-SD 47.5 % (39-53); RED BLOOD COUNT 4.19 M/uL (3.80-5.20); WHITE BLOOD COUNT 10.4 K/uL (4.1-10.2)
[2017-02-22 07:22] LABS: ANION GAP 7 MEQ/L (2-14); CHLORIDE 109 MEQ/L (99-109); GFR ESTIMATE (CALCULATED) > 59 mL/min/; GLUCOSE 69 mg/dL (70-99); MAGNESIUM 1.9 mg/dl (1.3-2.7); POTASSIUM 3.9 MEQ/L (3.7-5.4); SAMPLE HEMOLYSIS CHECK 0; SAMPLE ICTERIC CHECK 0; SAMPLE LIPEMIA CHECK 0; SODIUM 145 MEQ/L (136-147); UREA NITROGEN (BUN) 25 mg/dL (9-23)
[2017-02-22 08:25] VITALS: BP 140/65
[2017-02-22 11:00] VITALS: BP 140/65
[2017-02-22 15:15] VITALS: BP 142/63
[2017-02-22 16:49] LABS: ADD MIUA? YES; BILIRUBIN NEGATIVE; BLOOD MODERATE; COLOR AMBER ((YELLOW)); GLUCOSE (STRIP) >=500; KETONES NEGATIVE; LEUKOCYTES LARGE; NITRITE NEGATIVE; PROTEIN (STRIP) 30; UROBILINOGEN 0.2 MG/DL (0.2-1.0)
[2017-02-22 17:14] LABS: BACTERIA 1+ /HPF; CASTS NONE SEEN /LPF; CRYSTALS NONE SEEN; EPITHELIAL CELLS 1+ /HPF; MUCUS NONE SEEN /LPF; RED BLOOD CELLS 0-5 /HPF (0-5)
[2017-02-22 20:21] VITALS: BP 141/65
[2017-02-22 23:46] VITALS: BP 136/63
[2017-02-23 03:58] VITALS: BP 111/59
[2017-02-23 06:26] LABS: EOSINOPHIL (%) 1.5 % (0-5); EOSINOPHIL COUNT 0.2 K/uL (0-0.3); HEMATOCRIT 33.7 % (36.0-46.0); IMMATURE GRANULOCYTE (%) 2.6 % (0.0-0.7); IMMATURE GRANULOCYTE COUNT 0.3 K/uL; LYMPHOCYTE COUNT 1.7 K/uL (1.0-2.8); MCH 31.2 PG (29.0-34.0); MCHC 33.8 G/DL (30.0-36.0); MCV 92.3 FL (83-99); MEAN PLAT.VOLUME 10.1 uM^3 (9.5-12.4); MONOCYTE (%) 7.3 % (3-12); MONOCYTE COUNT 0.7 K/uL (0-0.8); NEUTROPHIL (%) 71.4 % (45-76); PLATELET COUNT 357 K/uL (156-360); RBC DIS.WIDTH-CV 14.1 % (11.8-14.6); RBC DIS.WIDTH-SD 47.6 % (39-53); RED BLOOD COUNT 3.65 M/uL (3.80-5.20); WHITE BLOOD COUNT 9.8 K/uL (4.1-10.2)
[2017-02-23 06:57] LABS: ANION GAP 10 MEQ/L (2-14); CHLORIDE 109 MEQ/L (99-109); GFR ESTIMATE (CALCULATED) > 59 mL/min/; GLUCOSE 199 mg/dL (70-99); MAGNESIUM 1.8 mg/dl (1.3-2.7); POTASSIUM 4.3 MEQ/L (3.7-5.4); SAMPLE HEMOLYSIS CHECK 0; SAMPLE ICTERIC CHECK 0; SAMPLE LIPEMIA CHECK 0; SODIUM 142 MEQ/L (136-147); UREA NITROGEN (BUN) 21 mg/dL (9-23)
[2017-02-23 07:25] VITALS: BP 151/77
[2017-02-23] MEDS ORDERED: ATORVASTATIN CA40 MG PO (08:38)
[2017-02-23] MEDS ORDERED: LISINOPRIL2.5 MG GT (08:38)
[2017-02-23] MEDS ORDERED: LOPRESSOR25 MG GT (08:38)
[2017-02-23] MEDS ORDERED: NICOTINE PATCH1 EAC2 TD (08:38)
[2017-02-23] MEDS ORDERED: LEVEMIR100 UNIT/2 SC (08:39)
[2017-02-23] MEDS ORDERED: NOVOLOG PE100 UNITS/ SC (08:40)
[2017-02-23 11:26] VITALS: BP 160/71
[2017-02-23] MEDS ORDERED: ADVAIR 250/501 DISK IH (11:56)
[2017-02-23] MEDS ORDERED: PLAVIX75 MG PO (11:56)
[2017-02-23] MEDS ORDERED: ASPIRIN81 M2 PO (11:56)
[2017-02-23] MEDS ORDERED: NEURONTIN600 MG PO (11:56)
[2017-02-23] MEDS ORDERED: VENTOLIN HFA18 GM IH (11:56)
[2017-02-23] MEDS ORDERED: WOMEN MULTIVIT1 EACH PO (11:57)
[2017-02-23 12:26] VITALS: BP 134/88
[2017-02-24] MEDS ORDERED: LISINOPRIL2.5 MG PO (15:53)
[2017-02-24] MEDS ORDERED: METOPROLOL TART25 MG PO (15:54)
[2017-02-24] MEDS ORDERED: KEFLEX500 MG PO (16:49)
[2017-02-24] MEDS ORDERED: LEVAQUIN500 MG PO (16:49)
[2017-02-27 15:54] LABS: POINT-OF-CARE METER ID UU14174225
== END 2017-02-23 14:52 | disposition home health service (06) | DRG 616 ==
LOC: EME 12:13 → 4EAST 16:25 → EDOF 16:25 → 4WEST 16:25 → 3EAST 18:10 → 4EAST 18:19 → 4WEST 21:59 → 3EAST 22:00 → 4WEST 22:10 → 4EAST 02-08 02:58 → 2EAST 02-10 01:34 → 4EAST 02-13 18:19 → 4WEST 02-14 12:13 → ENRESERV 02-21 12:27 → 2EAST 02-21 14:28
PROVIDERS: Emergency Medicine; Hospitalist; Internal Medicine; Internal Medicine Critical Care Medicine; Internal Medicine Nephrology; Obstetrics & Gynecology; Physician Assistant
DX: E11.69 Type 2 diabetes mellitus with other specified complication (principal); J96.21 Acute and chronic respiratory failure with hypoxia; I21.4 Non-ST elevation (NSTEMI) myocardial infarction; J18.9 Pneumonia, unspecified organism; J44.0 Chronic obstructive pulmonary disease with (acute) lower respiratory infection; I11.0 Hypertensive heart disease with heart failure; I24.8 Other forms of acute ischemic heart disease; I95.9 Hypotension, unspecified; I50.20 Unspecified systolic (congestive) heart failure; E11.52 Type 2 diabetes mellitus with diabetic peripheral angiopathy with gangrene; D64.9 Anemia, unspecified; E11.42 Type 2 diabetes mellitus with diabetic polyneuropathy; M86.171 Other acute osteomyelitis, right ankle and foot; L97.509 Non-pressure chronic ulcer of other part of unspecified foot with unspecified severity; E11.621 Type 2 diabetes mellitus with foot ulcer; E11.65 Type 2 diabetes mellitus with hyperglycemia; E78.2 Mixed hyperlipidemia; E87.1 Hypo-osmolality and hyponatremia; F17.210 Nicotine dependence, cigarettes, uncomplicated; G40.909 Epilepsy, unspecified, not intractable, without status epilepticus; G43.909 Migraine, unspecified, not intractable, without status migrainosus; I25.2 Old myocardial infarction; I25.10 Atherosclerotic heart disease of native coronary artery without angina pectoris; I25.5 Ischemic cardiomyopathy; I69.354 Hemiplegia and hemiparesis following cerebral infarction affecting left non-dominant side; R53.1 Weakness; I70.1 Atherosclerosis of renal artery; J44.1 Chronic obstructive pulmonary disease with (acute) exacerbation; K21.9 Gastro-esophageal reflux disease without esophagitis; Y95 Nosocomial condition; M79.7 Fibromyalgia; R79.1 Abnormal coagulation profile; Z66 Do not resuscitate; Z68.1 Body mass index [BMI] 19.9 or less, adult; Z79.01 Long term (current) use of anticoagulants; Z95.5 Presence of coronary angioplasty implant and graft; Z95.1 Presence of aortocoronary bypass graft; Z79.4 Long term (current) use of insulin; Z79.82 Long term (current) use of aspirin; Z79.899 Other long term (current) drug therapy; Z82.49 Family history of ischemic heart disease and other diseases of the circulatory system; Z88.0 Allergy status to penicillin; Z91.14 Patient's other noncompliance with medication regimen; I65.29 Occlusion and stenosis of unspecified carotid artery; I69.322 Dysarthria following cerebral infarction; L03.115 Cellulitis of right lower limb; I65.23 Occlusion and stenosis of bilateral carotid arteries; I63.9 Cerebral infarction, unspecified; G81.91 Hemiplegia, unspecified affecting right dominant side
CPT/HCPCS: 36600; 70450; 70496; 70498; 71010; 71275; 73630; 80048; 80048 91; 80053; 80061; 80076; 80202; 81003; 82140; 82550; 82550 91; 82553; 82570; 82803; 82948; 83036; 83605; 83735; 83880; 84100; 84156; 84484; 84999; 85014; 85018; 85025; 85027; 85379; 85610; 85651; 85730; 86900; 86901; 86920; 87040; 87070; 87086; 87106; 87205; 87493; 87641; 88305; 88311; 92610 GN; 93005; 93306; 94002; 94003; 94640; 94640 76; 94760; 94799; 97530 GO; 97530 GP; 99202; 99281; 99285; J0330; J0692; J1170; J1644; J1650; J1815; J1940; J2060; J2270; J2405; J2543; J2704; J2920; J2930; J3010; J3370; J3430; J3475; J3480; J7050; J7120; P9016; P9017; P9045; P9047; S0028

== ENCOUNTER 2017-02-23 18:05 | Emergency (ER) | payer OTHER ==
[~2017-02-23] VITALS: Ht 162.6 cm; Wt 57.1 kg
[~2017-02-23 18:05] MED LIST changes: +LEVEMIR100 UNIT/2 SC; +LISINOPRIL2.5 MG GT; +LOPRESSOR25 MG GT; +NICOTINE PATCH1 EAC2 TD
[2017-02-23 20:45] VITALS: BP 164/78
[2017-02-24] MEDS ORDERED: LISINOPRIL2.5 MG PO (15:53)
[2017-02-24] MEDS ORDERED: METOPROLOL TART25 MG PO (15:54)
[2017-02-24] MEDS ORDERED: KEFLEX500 MG PO (16:49)
[2017-02-24] MEDS ORDERED: LEVAQUIN500 MG PO (16:49)
== END 2017-02-23 20:50 | disposition left against medical advice (07) ==
LOC: EME → EDBD 18:05 → EME 18:05
DX: M53.3 Sacrococcygeal disorders, not elsewhere classified (principal); Z53.21 Procedure and treatment not carried out due to patient leaving prior to being seen by health care provider

== ENCOUNTER 2017-02-24 11:27 | Inpatient (IN) | payer OTHER ==
[~2017-02-24] VITALS: Ht 162.6 cm; Wt 58.2 kg
[2017-02-24 12:34] LABS: EOSINOPHIL (%) 0.8 % (0-5); EOSINOPHIL COUNT 0.1 K/uL (0-0.3); HEMATOCRIT 35.5 % (36.0-46.0); IMMATURE GRANULOCYTE (%) 1.7 % (0.0-0.7); IMMATURE GRANULOCYTE COUNT 0.2 K/uL; INSTRUMENT ABS NEUTROPHIL CT 10.2 K/uL; LYMPHOCYTE COUNT 1.5 K/uL (1.0-2.8); MCH 29.6 PG (29.0-34.0); MCHC 32.4 G/DL (30.0-36.0); MCV 91.3 FL (83-99); MEAN PLAT.VOLUME 9.9 uM^3 (9.5-12.4); MONOCYTE (%) 5.2 % (3-12); MONOCYTE COUNT 0.7 K/uL (0-0.8); NEUTROPHIL (%) 80.2 % (45-76); NEUTROPHIL COUNT 10.2 K/uL (1.8-6.4); PLATELET COUNT 378 K/uL (156-360); RBC DIS.WIDTH-CV 14.1 % (11.8-14.6); RBC DIS.WIDTH-SD 47.2 % (39-53); RED BLOOD COUNT 3.89 M/uL (3.80-5.20); WHITE BLOOD COUNT 12.7 K/uL (4.1-10.2)
[2017-02-24 12:44] LABS: CHLORIDE 106 mEq/L (99-109); POTASSIUM 4.3 mEq/L (3.7-5.4); SODIUM 139 mEq/L (136-147)
[2017-02-24 12:46] LABS: GLUCOSE 254 mg/dL (70-99)
[2017-02-24 12:47] LABS: ANION GAP 8 MEQ/L (2-14)
[2017-02-24 12:50] LABS: GFR ESTIMATE (CALCULATED) > 59 mL/min/
[2017-02-24 12:51] LABS: UREA NITROGEN (BUN) 20 mg/dL (9-23)
[2017-02-24 12:55] LABS: TROP-I INTERPRETATION NEGATIVE; TROPONIN-I 0.09 ng/mL (0.0-0.30)
[2017-02-24] MEDS ORDERED: LISINOPRIL2.5 MG PO (15:53)
[2017-02-24] MEDS ORDERED: METOPROLOL TART25 MG PO (15:54)
[2017-02-24] MEDS ORDERED: KEFLEX500 MG PO (16:49)
[2017-02-24] MEDS ORDERED: LEVAQUIN500 MG PO (16:49)
[2017-02-24 17:35] VITALS: BP 138/71
[2017-02-25] MEDS ORDERED: KEFLEX500 MG PO (14:40)
[2017-02-25] MEDS ORDERED: LANTUS 3 M100 UNITS1 SC (14:43)
[2017-02-25] MEDS ORDERED: ADVIL200 MG PO (14:43)
== END 2017-02-24 17:35 | disposition left against medical advice (07) | DRG 190 ==
LOC: EME 11:27 → EDOF 15:48 → ENRESERV 15:49 → CANRESERV 16:04 → EDOF 17:35
PROVIDERS: Emergency Medicine
DX: J44.0 Chronic obstructive pulmonary disease with (acute) lower respiratory infection (principal); J18.9 Pneumonia, unspecified organism; J98.11 Atelectasis; I69.351 Hemiplegia and hemiparesis following cerebral infarction affecting right dominant side; I25.10 Atherosclerotic heart disease of native coronary artery without angina pectoris; K21.9 Gastro-esophageal reflux disease without esophagitis; E11.40 Type 2 diabetes mellitus with diabetic neuropathy, unspecified; E78.5 Hyperlipidemia, unspecified; I11.0 Hypertensive heart disease with heart failure; I50.9 Heart failure, unspecified; M79.7 Fibromyalgia; R09.02 Hypoxemia; I25.2 Old myocardial infarction; Z79.82 Long term (current) use of aspirin; Z79.4 Long term (current) use of insulin; Z85.3 Personal history of malignant neoplasm of breast; Z85.41 Personal history of malignant neoplasm of cervix uteri; Z87.891 Personal history of nicotine dependence; Z91.19 Patient's noncompliance with other medical treatment and regimen; Z89.421 Acquired absence of other right toe(s); Z88.0 Allergy status to penicillin; Z91.040 Latex allergy status
CPT/HCPCS: 71020; 80048; 83605; 83880; 84484; 85025; 87040; 93005; 99281; 99285; J0696; J1956; J7050

== ENCOUNTER 2017-02-25 11:03 | Inpatient (IN) | payer OTHER ==
[2017-02-25] VITALS (9 sets, daily range): BP systolic 90–147; BP diastolic 60–72
[~2017-02-25] VITALS: Ht 162.6 cm; Wt 64.1 kg
[~2017-02-25 11:03] MED LIST changes: +KEFLEX500 MG PO; +LISINOPRIL2.5 MG PO
[2017-02-25 11:53] LABS: EOSINOPHIL (%) 0.5 % (0-5); EOSINOPHIL COUNT 0.1 K/uL (0-0.3); HEMATOCRIT 34.6 % (36.0-46.0); IMMATURE GRANULOCYTE (%) 1.3 % (0.0-0.7); IMMATURE GRANULOCYTE COUNT 0.2 K/uL; INSTRUMENT ABS NEUTROPHIL CT 9.8 K/uL; LYMPHOCYTE COUNT 1.3 K/uL (1.0-2.8); MCH 29.4 PG (29.0-34.0); MCHC 32.1 G/DL (30.0-36.0); MCV 91.8 FL (83-99); MEAN PLAT.VOLUME 9.7 uM^3 (9.5-12.4); MONOCYTE COUNT 0.8 K/uL (0-0.8); NEUTROPHIL (%) 80.8 % (45-76); NEUTROPHIL COUNT 9.8 K/uL (1.8-6.4); PLATELET COUNT 327 K/uL (156-360); RBC DIS.WIDTH-CV 14.1 % (11.8-14.6); RBC DIS.WIDTH-SD 47.6 % (39-53); RED BLOOD COUNT 3.77 M/uL (3.80-5.20); WHITE BLOOD COUNT 12.1 K/uL (4.1-10.2)
[2017-02-25 12:02] LABS: CHLORIDE 106 mEq/L (99-109); POTASSIUM 4.1 mEq/L (3.7-5.4); SODIUM 140 mEq/L (136-147)
[2017-02-25 12:03] LABS: GLUCOSE 297 mg/dL (70-99)
[2017-02-25 12:05] LABS: ANION GAP 11 MEQ/L (2-14)
[2017-02-25 12:06] LABS: INTER. NORMALIZED RATIO 1.2; PROTHROMBIN TIME 13.2 SEC (10.2-12.9)
[2017-02-25 12:07] LABS: GFR ESTIMATE (CALCULATED) > 59 mL/min/
[2017-02-25 12:08] LABS: UREA NITROGEN (BUN) 19 mg/dL (9-23)
[2017-02-25 12:15] LABS: TROP-I INTERPRETATION NEGATIVE; TROPONIN-I 0.06 ng/mL (0.0-0.30)
[2017-02-25 12:16] LABS: PTT 27.6 SEC (25-37)
[2017-02-25] MEDS ORDERED: KEFLEX500 MG PO (14:40)
[2017-02-25] MEDS ORDERED: LANTUS 3 M100 UNITS1 SC (14:43)
[2017-02-25] MEDS ORDERED: ADVIL200 MG PO (14:43)
[2017-02-25 17:15] LABS: POINT-OF-CARE METER ID UU14208753
[2017-02-25 22:22] LABS: BASE EXCESS 4.8 mEq/L (-3 to +3); BICARBONATE 28.1 mEq/L (22-26); CARBOXY HGB 2.1 % (0-5); METHEMOGLOBIN 1.6 % (0-1.5); PCO2 36 mm Hg (35-45)
[2017-02-25 22:23] LABS: PO2 55 mm Hg (80-100); SITE LR
[2017-02-25 22:24] LABS: MCH 29.6 PG (29.0-34.0); MCHC 32.4 G/DL (30.0-36.0); MCV 91.4 FL (83-99); MEAN PLAT.VOLUME 9.8 uM^3 (9.5-12.4); PLATELET COUNT 334 K/uL (156-360); RBC DIS.WIDTH-SD 46.9 % (39-53); RED BLOOD COUNT 3.72 M/uL (3.80-5.20); WHITE BLOOD COUNT 12.2 K/uL (4.1-10.2)
[2017-02-25 22:24] LABS: DEVICE NC; O2 FLOW 6 L/MIN
[2017-02-25 22:30] LABS: INTER. NORMALIZED RATIO 1.2; PROTHROMBIN TIME 13.2 SEC (10.2-12.9)
[2017-02-25 22:33] LABS: PTT 27.8 SEC (25-37)
[2017-02-25 22:37] LABS: POINT-OF-CARE METER ID UU14117124
[2017-02-25 22:38] LABS: CHLORIDE 107 mEq/L (99-109); POTASSIUM 3.5 mEq/L (3.7-5.4); SODIUM 143 mEq/L (136-147)
[2017-02-25 22:40] LABS: GLUCOSE 310 mg/dL (70-99)
[2017-02-25 22:41] LABS: ANION GAP 10 MEQ/L (2-14)
[2017-02-25 22:43] LABS: GFR ESTIMATE (CALCULATED) > 59 mL/min/
[2017-02-25 22:44] LABS: UREA NITROGEN (BUN) 18 mg/dL (9-23)
[2017-02-25 22:45] LABS: TROP-I INTERPRETATION NEGATIVE; TROPONIN-I 0.05 ng/mL (0.0-0.30)
[2017-02-26] VITALS: BP 153/67
[2017-02-26 03:28] VITALS: BP 131/62
[2017-02-26 06:03] LABS: HEMATOCRIT 30.8 % (36.0-46.0); MCH 30.7 PG (29.0-34.0); MCHC 33.4 G/DL (30.0-36.0); MCV 91.7 FL (83-99); PLATELET COUNT 322 K/uL (156-360); RBC DIS.WIDTH-CV 14.3 % (11.8-14.6); RBC DIS.WIDTH-SD 47.6 % (39-53); RED BLOOD COUNT 3.36 M/uL (3.80-5.20); WHITE BLOOD COUNT 12.7 K/uL (4.1-10.2)
[2017-02-26 06:37] LABS: ANION GAP 7 MEQ/L (2-14); CHLORIDE 110 MEQ/L (99-109); GFR ESTIMATE (CALCULATED) > 59 mL/min/; POTASSIUM 3.6 MEQ/L (3.7-5.4); SAMPLE HEMOLYSIS CHECK 0; SAMPLE ICTERIC CHECK 0; SAMPLE LIPEMIA CHECK 0; SODIUM 146 MEQ/L (136-147); UREA NITROGEN (BUN) 17 mg/dL (9-23)
[2017-02-26 07:00] LABS: GLUCOSE 53 mg/dL (70-99)
[2017-02-26 09:00] VITALS: BP 114/60
[2017-02-26 09:08] LABS: POINT-OF-CARE METER ID UU13113717
[2017-02-26 10:56] LABS: Estimated Average Glucose 194 mg/dL (70-123); HEMOGLOBIN A1c (GLYCOHEMOGLOB) 8.4 % HGB (Below 5.7)
[2017-02-26 11:14] LABS: TOTAL BILIRUBIN 0.5 mg/dL (0.0-1.0)
[2017-02-26 11:15] LABS: ALKALINE PHOSPHATASE 335 IU/L (3-129)
[2017-02-26 11:16] LABS: TROP-I INTERPRETATION NEGATIVE; TROPONIN-I 0.07 ng/mL (0.0-0.30)
[2017-02-26 11:18] LABS: DIRECT BILIRUBIN 0.3 mg/dL (0.0-0.3)
[2017-02-26 11:19] LABS: LIPASE 22 U/L (1.0-51.0)
[2017-02-26 11:58] LABS: HDL CHOLESTEROL 35 MG/DL (Desirable>=50); LDL CHOLESTEROL 73 mg/dL (Desirable<100); NON-HDL CHOLESTEROL 92 mg/dL (Desirable<160); TOTAL CHOLESTEROL 127 mg/dL (Desirable<200); TRIGLYCERIDES 94 MG/DL (Normal: <150)
[2017-02-26 12:32] LABS: POINT-OF-CARE METER ID UU13113717
[2017-02-26 13:19] VITALS: BP 123/66
[2017-02-26 14:58] LABS: METH RESISTANT S AUREUS PCR NEGATIVE (NEGATIVE)
[2017-02-26 15:03] LABS: PROBE CHECK PASS; SPECIMEN PROCESSING CONTROL PASS
[2017-02-26 15:19] VITALS: BP 123/97
[2017-02-26 19:52] VITALS: BP 126/59
[2017-02-26 20:28] LABS: POINT-OF-CARE METER ID UU14174225
[2017-02-27 00:02] VITALS: BP 115/57
[2017-02-27 07:58] LABS: POINT-OF-CARE METER ID UU13113717
[2017-02-27 08:44] LABS: HEMATOCRIT 30.8 % (36.0-46.0); MCH 30.4 PG (29.0-34.0); MCHC 33.1 G/DL (30.0-36.0); MCV 91.9 FL (83-99); MEAN PLAT.VOLUME 9.8 uM^3 (9.5-12.4); PLATELET COUNT 327 K/uL (156-360); RBC DIS.WIDTH-CV 14.6 % (11.8-14.6); RBC DIS.WIDTH-SD 48.6 % (39-53); RED BLOOD COUNT 3.35 M/uL (3.80-5.20); WHITE BLOOD COUNT 11.3 K/uL (4.1-10.2)
[2017-02-27 08:49] VITALS: BP 125/61
[2017-02-27 09:16] LABS: ANION GAP 9 MEQ/L (2-14); CHLORIDE 105 MEQ/L (99-109); GFR ESTIMATE (CALCULATED) > 59 mL/min/; GLUCOSE 88 mg/dL (70-99); POTASSIUM 3.9 MEQ/L (3.7-5.4); SAMPLE HEMOLYSIS CHECK 0; SAMPLE ICTERIC CHECK 0; SAMPLE LIPEMIA CHECK 0; SODIUM 142 MEQ/L (136-147); UREA NITROGEN (BUN) 19 mg/dL (9-23)
[2017-02-27 11:49] LABS: POINT-OF-CARE METER ID UU14174225
[2017-02-27 15:37] VITALS: BP 120/57
[2017-02-27 23:35] VITALS: BP 104/65
[2017-02-28 05:49] LABS: HEMATOCRIT 30.6 % (36.0-46.0); MCH 29.7 PG (29.0-34.0); MCHC 31.7 G/DL (30.0-36.0); MCV 93.6 FL (83-99); MEAN PLAT.VOLUME 10.1 uM^3 (9.5-12.4); PLATELET COUNT 299 K/uL (156-360); RBC DIS.WIDTH-CV 14.5 % (11.8-14.6); RBC DIS.WIDTH-SD 48.9 % (39-53); RED BLOOD COUNT 3.27 M/uL (3.80-5.20); WHITE BLOOD COUNT 8.6 K/uL (4.1-10.2)
[2017-02-28 06:40] LABS: ANION GAP 6 MEQ/L (2-14); CHLORIDE 105 MEQ/L (99-109); GFR ESTIMATE (CALCULATED) > 59 mL/min/; GLUCOSE 284 mg/dL (70-99); POTASSIUM 4.6 MEQ/L (3.7-5.4); SAMPLE HEMOLYSIS CHECK 0; SAMPLE ICTERIC CHECK 0; SAMPLE LIPEMIA CHECK 0; SODIUM 139 MEQ/L (136-147); UREA NITROGEN (BUN) 23 mg/dL (9-23)
[2017-02-28 07:10] VITALS: BP 115/62; BP 156/90
[2017-02-28 11:15] VITALS: BP 117/60
[2017-02-28 11:26] LABS: TROP-I INTERPRETATION NEGATIVE; TROPONIN-I 0.03 ng/mL (0.0-0.30)
[2017-02-28 11:59] LABS: POINT-OF-CARE METER ID UU13113717
[2017-02-28 16:30] LABS: POINT-OF-CARE METER ID UU13113717
[2017-02-28 17:45] LABS: TROP-I INTERPRETATION NEGATIVE; TROPONIN-I 0.03 ng/mL (0.0-0.30)
[2017-02-28 20:09] VITALS: BP 120/53
== END 2017-02-28 23:27 | disposition left against medical advice (07) | DRG 291 ==
LOC: EME 11:03 → EDOF 13:39 → 5SOUTH 13:39 → ENRESERV 13:47 → CANRESERV 13:54 → EDOF 14:05 → ENRESERV 14:42 → 3EAST 15:59 → ENRESERV 23:17 → 5SOUTH 23:24
PROVIDERS: Emergency Medicine; Hospitalist; Internal Medicine Cardiovascular Disease; Physician Assistant Medical
DX: I50.23 Acute on chronic systolic (congestive) heart failure (principal); J81.1 Chronic pulmonary edema; J96.01 Acute respiratory failure with hypoxia; J18.9 Pneumonia, unspecified organism; L89.153 Pressure ulcer of sacral region, stage 3; I11.0 Hypertensive heart disease with heart failure; I70.1 Atherosclerosis of renal artery; E11.65 Type 2 diabetes mellitus with hyperglycemia; E11.621 Type 2 diabetes mellitus with foot ulcer; M86.9 Osteomyelitis, unspecified; G45.8 Other transient cerebral ischemic attacks and related syndromes; E11.40 Type 2 diabetes mellitus with diabetic neuropathy, unspecified; E78.5 Hyperlipidemia, unspecified; F17.210 Nicotine dependence, cigarettes, uncomplicated; F17.200 Nicotine dependence, unspecified, uncomplicated; I25.5 Ischemic cardiomyopathy; K21.9 Gastro-esophageal reflux disease without esophagitis; I25.10 Atherosclerotic heart disease of native coronary artery without angina pectoris; I73.9 Peripheral vascular disease, unspecified; R00.0 Tachycardia, unspecified; F43.20 Adjustment disorder, unspecified; F10.10 Alcohol abuse, uncomplicated; J98.11 Atelectasis; R68.84 Jaw pain; R07.9 Chest pain, unspecified; I25.2 Old myocardial infarction; Z88.0 Allergy status to penicillin; Z88.8 Allergy status to other drugs, medicaments and biological substances; Z88.1 Allergy status to other antibiotic agents; Y95 Nosocomial condition; Z91.040 Latex allergy status; Z79.2 Long term (current) use of antibiotics; Z95.1 Presence of aortocoronary bypass graft; Z89.421 Acquired absence of other right toe(s); Z86.73 Personal history of transient ischemic attack (TIA), and cerebral infarction without residual deficits; Z91.14 Patient's other noncompliance with medication regimen; Z85.3 Personal history of malignant neoplasm of breast; Z79.4 Long term (current) use of insulin; Z79.82 Long term (current) use of aspirin; Z85.41 Personal history of malignant neoplasm of cervix uteri; Z91.19 Patient's noncompliance with other medical treatment and regimen; Z98.61 Coronary angioplasty status; Z82.49 Family history of ischemic heart disease and other diseases of the circulatory system; Z79.899 Other long term (current) drug therapy
CPT/HCPCS: 36600; 70450; 70551; 71010; 71020; 71275; 80048; 80048 91; 80061; 80076; 80202; 82803; 82948; 83036; 83605; 83690; 83880; 84484; 85025; 85027; 85610; 85730; 87040; 87070; 87106; 87205; 87641; 93005; 94640; 94640 76; 94760; 94799; 99202; 99281; 99285; J1644; J1815; J1940; J2270; J2543; J3370; J7050

== ENCOUNTER 2017-03-01 05:04 | Inpatient (IN) | payer OTHER ==
[~2017-03-01] VITALS: Ht 162.6 cm; Wt 52.9 kg
[2017-03-01 06:03] LABS: EOSINOPHIL (%) 1.4 % (0-5); EOSINOPHIL COUNT 0.1 K/uL (0-0.3); HEMATOCRIT 30.4 % (36.0-46.0); IMMATURE GRANULOCYTE (%) 0.9 % (0.0-0.7); IMMATURE GRANULOCYTE COUNT 0.1 K/uL; LYMPHOCYTE COUNT 1.3 K/uL (1.0-2.8); MCH 29.4 PG (29.0-34.0); MCHC 32.2 G/DL (30.0-36.0); MCV 91.3 FL (83-99); MEAN PLAT.VOLUME 9.8 uM^3 (9.5-12.4); MONOCYTE (%) 6.4 % (3-12); MONOCYTE COUNT 0.5 K/uL (0-0.8); NEUTROPHIL (%) 75.1 % (45-76); PLATELET COUNT 324 K/uL (156-360); RBC DIS.WIDTH-CV 14.4 % (11.8-14.6); RBC DIS.WIDTH-SD 47.3 % (39-53); RED BLOOD COUNT 3.33 M/uL (3.80-5.20); WHITE BLOOD COUNT 7.9 K/uL (4.1-10.2)
[2017-03-01 06:14] LABS: CARBON DIOXIDE (BICARBONATE) 33.2 MEQ/L (20-31)
[2017-03-01 06:16] LABS: CHLORIDE 103 mEq/L (99-109); POTASSIUM 3.9 mEq/L (3.7-5.4); SODIUM 138 mEq/L (136-147)
[2017-03-01 06:19] LABS: ANION GAP 8 MEQ/L (2-14)
[2017-03-01 06:22] LABS: GFR ESTIMATE (CALCULATED) > 59 mL/min/
[2017-03-01 06:23] LABS: UREA NITROGEN (BUN) 24 mg/dL (9-23)
[2017-03-01 06:25] LABS: TROP-I INTERPRETATION NEGATIVE; TROPONIN-I 0.02 ng/mL (0.0-0.30)
[2017-03-01 06:31] LABS: ALKALINE PHOSPHATASE 438 IU/L (3-129); GLUCOSE 139 mg/dL (70-99); TOTAL BILIRUBIN 0.7 mg/dL (0.0-1.0)
[2017-03-01 11:29] LABS: POINT-OF-CARE METER ID UU14100415
[2017-03-01 13:12] VITALS: BP 119/56
[2017-03-01 14:12] LABS: TROP-I INTERPRETATION NEGATIVE; TROPONIN-I 0.04 ng/mL (0.0-0.30)
[2017-03-01 15:14] VITALS: BP 126/58
[2017-03-01 16:27] LABS: POINT-OF-CARE METER ID UU14117124
[2017-03-01 19:12] LABS: TROP-I INTERPRETATION NEGATIVE; TROPONIN-I 0.02 ng/mL (0.0-0.30)
[2017-03-01 20:00] VITALS: BP 135/61
[2017-03-01 21:50] LABS: POINT-OF-CARE METER ID UU14208753
[2017-03-01 23:27] VITALS: BP 132/59
[2017-03-02 04:00] VITALS: BP 137/62
[2017-03-02 06:22] LABS: POINT-OF-CARE METER ID UU14208753
[2017-03-02 06:41] LABS: EOSINOPHIL (%) 1.3 % (0-5); EOSINOPHIL COUNT 0.1 K/uL (0-0.3); HEMATOCRIT 28.1 % (36.0-46.0); IMMATURE GRANULOCYTE (%) 0.6 % (0.0-0.7); LYMPHOCYTE COUNT 1.4 K/uL (1.0-2.8); MCH 30.4 PG (29.0-34.0); MCHC 32.7 G/DL (30.0-36.0); MCV 92.7 FL (83-99); MEAN PLAT.VOLUME 10.3 uM^3 (9.5-12.4); MONOCYTE (%) 8.4 % (3-12); MONOCYTE COUNT 0.6 K/uL (0-0.8); NEUTROPHIL (%) 69.3 % (45-76); PLATELET COUNT 291 K/uL (156-360); RBC DIS.WIDTH-CV 14.6 % (11.8-14.6); RBC DIS.WIDTH-SD 48.4 % (39-53); RED BLOOD COUNT 3.03 M/uL (3.80-5.20); WHITE BLOOD COUNT 7.2 K/uL (4.1-10.2)
[2017-03-02 07:09] LABS: ANION GAP 9 MEQ/L (2-14); CHLORIDE 106 MEQ/L (99-109); GFR ESTIMATE (CALCULATED) > 59 mL/min/; GLUCOSE 126 mg/dL (70-99); POTASSIUM 3.7 MEQ/L (3.7-5.4); SAMPLE HEMOLYSIS CHECK 0; SAMPLE ICTERIC CHECK 0; SAMPLE LIPEMIA CHECK 0; SODIUM 142 MEQ/L (136-147); UREA NITROGEN (BUN) 19 mg/dL (9-23)
[2017-03-02 08:46] VITALS: BP 135/64
[2017-03-02 11:25] LABS: POINT-OF-CARE METER ID UU14117124
[2017-03-02 11:57] VITALS: BP 132/60
[2017-03-02 15:58] VITALS: BP 139/64
[2017-03-02 17:14] LABS: POINT-OF-CARE METER ID UU14117124
[2017-03-02 20:27] VITALS: BP 145/66
[2017-03-02 23:50] VITALS: BP 130/74
[2017-03-03 03:42] VITALS: BP 123/61
[2017-03-03 05:31] LABS: MCH 30.5 PG (29.0-34.0); MCHC 32.8 G/DL (30.0-36.0); MCV 93.2 FL (83-99); MEAN PLAT.VOLUME 10.1 uM^3 (9.5-12.4); PLATELET COUNT 269 K/uL (156-360); RBC DIS.WIDTH-CV 14.6 % (11.8-14.6); RBC DIS.WIDTH-SD 49.2 % (39-53); RED BLOOD COUNT 3.11 M/uL (3.80-5.20)
[2017-03-03 06:52] LABS: POINT-OF-CARE METER ID UU14188577
[2017-03-03 08:22] VITALS: BP 136/61
[2017-03-03] MEDS ORDERED: FUROSEMIDE40 MG PO (10:40)
[2017-03-03] MEDS ORDERED: LEVEMIR100 UNIT/2 SC (10:42)
[2017-03-03] MEDS ORDERED: AUGMENTIN500 MG PO (10:44)
[2017-03-03 11:00] LABS: POINT-OF-CARE METER ID UU14188577
== END 2017-03-03 13:06 | disposition home or self-care (01) | DRG 193 ==
LOC: EME → EDBD 05:04 → EME 05:04 → EDOF 07:27 → 3EAST 07:27 → EDOF 07:40 → ENRESERV 07:40 → 3EAST 12:57 → ENPENDDIS 03-03 → 3EAST 03-03 13:06
PROVIDERS: Emergency Medicine; Internal Medicine; Physician Assistant
DX: J18.9 Pneumonia, unspecified organism (principal); J96.01 Acute respiratory failure with hypoxia; I50.23 Acute on chronic systolic (congestive) heart failure; I50.1 Left ventricular failure, unspecified; I11.0 Hypertensive heart disease with heart failure; I73.9 Peripheral vascular disease, unspecified; Y95 Nosocomial condition; I25.10 Atherosclerotic heart disease of native coronary artery without angina pectoris; J44.0 Chronic obstructive pulmonary disease with (acute) lower respiratory infection; E11.9 Type 2 diabetes mellitus without complications; M79.7 Fibromyalgia; K21.9 Gastro-esophageal reflux disease without esophagitis; F81.9 Developmental disorder of scholastic skills, unspecified; E78.5 Hyperlipidemia, unspecified; Z89.421 Acquired absence of other right toe(s); I25.2 Old myocardial infarction; Z91.19 Patient's noncompliance with other medical treatment and regimen; Z79.4 Long term (current) use of insulin; Z85.41 Personal history of malignant neoplasm of cervix uteri; Z85.3 Personal history of malignant neoplasm of breast; Z87.891 Personal history of nicotine dependence; Z86.73 Personal history of transient ischemic attack (TIA), and cerebral infarction without residual deficits; Z80.9 Family history of malignant neoplasm, unspecified
CPT/HCPCS: 71020; 80048; 80053; 82803; 82948; 83605; 83880; 84484; 85025; 85027; 87040; 93005; 94640; 94640 76; 94799; 99202; 99281; 99285; J1644; J1815; J1940; J1956; J2543; J7050

== ENCOUNTER 2017-03-04 18:24 | Emergency (ER) | payer OTHER ==
[~2017-03-04] VITALS: Ht 162.6 cm; Wt 56.3 kg
[~2017-03-04 18:24] MED LIST changes: +AUGMENTIN500 MG PO; +FUROSEMIDE40 MG PO
[2017-03-04 19:33] LABS: HEMATOCRIT 31.1 % (36.0-46.0); MCH 29.8 PG (29.0-34.0); MCHC 32.5 G/DL (30.0-36.0); MCV 91.7 FL (83-99); MEAN PLAT.VOLUME 10.1 uM^3 (9.5-12.4); PLATELET COUNT 295 K/uL (156-360); RBC DIS.WIDTH-CV 14.9 % (11.8-14.6); RBC DIS.WIDTH-SD 49.3 % (39-53); RED BLOOD COUNT 3.39 M/uL (3.80-5.20); WHITE BLOOD COUNT 6.4 K/uL (4.1-10.2)
[2017-03-04 19:37] LABS: CARBON DIOXIDE (BICARBONATE) 33.4 MEQ/L (20-31)
[2017-03-04 19:40] LABS: CHLORIDE 102 mEq/L (99-109); SODIUM 139 mEq/L (136-147)
[2017-03-04 19:41] LABS: POTASSIUM 4.6 mEq/L (3.7-5.4)
[2017-03-04 19:43] LABS: ANION GAP 10 MEQ/L (2-14)
[2017-03-04 19:45] LABS: GFR ESTIMATE (CALCULATED) > 59 mL/min/
[2017-03-04 19:46] LABS: UREA NITROGEN (BUN) 16 mg/dL (9-23)
[2017-03-04 19:48] LABS: GLUCOSE 401 mg/dL (70-99)
[2017-03-04 19:52] LABS: TROP-I INTERPRETATION NEGATIVE; TROPONIN-I 0.02 ng/mL (0.0-0.30)
[2017-03-04 20:56] VITALS: BP 124/60
== END 2017-03-04 20:58 | disposition left against medical advice (07) ==
LOC: EME 18:24
PROVIDERS: Emergency Medicine
DX: J44.0 Chronic obstructive pulmonary disease with (acute) lower respiratory infection (principal); J18.9 Pneumonia, unspecified organism; R09.02 Hypoxemia; E11.9 Type 2 diabetes mellitus without complications; I10 Essential (primary) hypertension; M79.7 Fibromyalgia; K21.9 Gastro-esophageal reflux disease without esophagitis; E78.5 Hyperlipidemia, unspecified; E03.9 Hypothyroidism, unspecified; I25.2 Old myocardial infarction; I25.10 Atherosclerotic heart disease of native coronary artery without angina pectoris; Z86.73 Personal history of transient ischemic attack (TIA), and cerebral infarction without residual deficits; Z79.4 Long term (current) use of insulin; Z85.41 Personal history of malignant neoplasm of cervix uteri; Z85.3 Personal history of malignant neoplasm of breast; Z87.891 Personal history of nicotine dependence
CPT/HCPCS: 71020; 80048; 82803; 83605; 83880; 84484; 85027; 87040; 93005; 94640; 94799; 99281; 99285; J7644

== ENCOUNTER 2017-03-05 16:35 | Inpatient (IN) | payer OTHER ==
[~2017-03-05] VITALS: Ht 162.6 cm; Wt 49.2 kg
[2017-03-05 17:13] LABS: HEMATOCRIT 31.6 % (36.0-46.0); MCH 29.4 PG (29.0-34.0); MCV 92.1 FL (83-99); MEAN PLAT.VOLUME 9.9 uM^3 (9.5-12.4); PLATELET COUNT 276 K/uL (156-360); RBC DIS.WIDTH-CV 15.1 % (11.8-14.6); RBC DIS.WIDTH-SD 49.9 % (39-53); RED BLOOD COUNT 3.43 M/uL (3.80-5.20); WHITE BLOOD COUNT 6.2 K/uL (4.1-10.2)
[2017-03-05 17:20] LABS: CHLORIDE 103 mEq/L (99-109); POTASSIUM 4.3 mEq/L (3.7-5.4); SODIUM 139 mEq/L (136-147)
[2017-03-05 17:22] LABS: GLUCOSE 357 mg/dL (70-99)
[2017-03-05 17:23] LABS: ANION GAP 9 MEQ/L (2-14)
[2017-03-05 17:26] LABS: GFR ESTIMATE (CALCULATED) > 59 mL/min/; UREA NITROGEN (BUN) 13 mg/dL (9-23)
[2017-03-05 17:31] LABS: TROP-I INTERPRETATION NEGATIVE; TROPONIN-I 0.01 ng/mL (0.0-0.30)
[2017-03-05 22:05] VITALS: BP 142/69
[2017-03-06] VITALS (26 sets, daily range): BP systolic 93–171; BP diastolic 45–116
[2017-03-06 01:13] LABS: POINT-OF-CARE METER ID UU14188625
[2017-03-06 01:19] LABS: BASOPHIL COUNT 0.1 K/uL (0-0.1); EOSINOPHIL (%) 0.2 % (0-5); HEMATOCRIT 33.7 % (36.0-46.0); IMMATURE GRANULOCYTE (%) 0.6 % (0.0-0.7); IMMATURE GRANULOCYTE COUNT 0.1 K/uL; INSTRUMENT ABS NEUTROPHIL CT 12.3 K/uL; MCH 29.6 PG (29.0-34.0); MCHC 31.8 G/DL (30.0-36.0); MCV 93.4 FL (83-99); MONOCYTE (%) 2.8 % (3-12); MONOCYTE COUNT 0.4 K/uL (0-0.8); NEUTROPHIL (%) 88.6 % (45-76); NEUTROPHIL COUNT 12.3 K/uL (1.8-6.4); PLATELET COUNT 325 K/uL (156-360); RBC DIS.WIDTH-CV 15.3 % (11.8-14.6); RBC DIS.WIDTH-SD 51.7 % (39-53); RED BLOOD COUNT 3.61 M/uL (3.80-5.20); WHITE BLOOD COUNT 13.8 K/uL (4.1-10.2)
[2017-03-06 01:29] LABS: CHLORIDE 101 mEq/L (99-109); POTASSIUM 4.2 mEq/L (3.7-5.4); SODIUM 138 mEq/L (136-147)
[2017-03-06 01:33] LABS: ANION GAP 12 MEQ/L (2-14); TOTAL BILIRUBIN 0.6 mg/dL (0.0-1.0)
[2017-03-06 01:35] LABS: ALKALINE PHOSPHATASE 443 IU/L (3-129); GFR ESTIMATE (CALCULATED) > 59 mL/min/
[2017-03-06 01:36] LABS: UREA NITROGEN (BUN) 15 mg/dL (9-23)
[2017-03-06 01:39] LABS: TROP-I INTERPRETATION NEGATIVE; TROPONIN-I 0.01 ng/mL (0.0-0.30)
[2017-03-06 01:41] LABS: GLUCOSE 403 mg/dL (70-99)
[2017-03-06 02:16] LABS: BICARBONATE 27.9 mEq/L (22-26); CARBOXY HGB 1.9 % (0-5); METHEMOGLOBIN 1.5 % (0-1.5); pH 7.42 (7.35-7.45)
[2017-03-06 02:17] LABS: COMMENTS - BLOOD GASES C+A+; DEVICE 980 VENT; FI02 75 %; MECHANICAL RATE 20 resp/min; MODE AC; PCO2 43 mm Hg (35-45); PEEP 5 CM/H20; PO2 138 mm Hg (80-100); SITE RR; TIDAL VOLUME 380 ML; TOTAL RESP RATE 20 resp/min
[2017-03-06 02:59] LABS: ADD MIUA? YES; BILIRUBIN NEGATIVE; BLOOD NEGATIVE; COLOR YELLOW ((YELLOW)); GLUCOSE (STRIP) >=500; KETONES 5; LEUKOCYTES NEGATIVE; NITRITE NEGATIVE; PROTEIN (STRIP) NEGATIVE; SPECIFIC GRAVITY 1.029 (1.000-1.030); UROBILINOGEN 0.2 MG/DL (0.2-1.0)
[2017-03-06 03:13] LABS: METH RESISTANT S AUREUS PCR NEGATIVE (NEGATIVE)
[2017-03-06 03:14] LABS: PROBE CHECK PASS; SPECIMEN PROCESSING CONTROL PASS
[2017-03-06 03:20] LABS: BACTERIA NONE SEEN /HPF; BUDDING YEAST 2+; EPITHELIAL CELLS RARE /HPF; MUCUS TRACE /LPF; RED BLOOD CELLS 30-40 /HPF (0-5); UCUL ADDED? YES; WHITE BLOOD CELLS 30-40 /HPF (0-5)
[2017-03-06 04:06] LABS: INFLUENZA A VIRAL ANTIGEN NEGATIVE; INFLUENZA B VIRAL ANTIGEN NEGATIVE
[2017-03-06 05:25] LABS: EOSINOPHIL (%) 0.1 % (0-5); HEMATOCRIT 31.3 % (36.0-46.0); IMMATURE GRANULOCYTE (%) 0.5 % (0.0-0.7); INSTRUMENT ABS NEUTROPHIL CT 7.5 K/uL; LYMPHOCYTE COUNT 0.7 K/uL (1.0-2.8); MCH 29.2 PG (29.0-34.0); MCHC 31.9 G/DL (30.0-36.0); MCV 91.3 FL (83-99); MEAN PLAT.VOLUME 10.3 uM^3 (9.5-12.4); MONOCYTE (%) 3.9 % (3-12); MONOCYTE COUNT 0.3 K/uL (0-0.8); NEUTROPHIL (%) 86.8 % (45-76); NEUTROPHIL COUNT 7.5 K/uL (1.8-6.4); PLATELET COUNT 274 K/uL (156-360); RBC DIS.WIDTH-CV 15.1 % (11.8-14.6); RBC DIS.WIDTH-SD 49.2 % (39-53); RED BLOOD COUNT 3.43 M/uL (3.80-5.20); WHITE BLOOD COUNT 8.7 K/uL (4.1-10.2)
[2017-03-06 06:13] LABS: 6-HOUR TOBRAMYCIN 5.7 UG/ML; ANION GAP 12 MEQ/L (2-14); CHLORIDE 101 MEQ/L (99-109); GFR ESTIMATE (CALCULATED) > 59 mL/min/; GLUCOSE 346 mg/dL (70-99); POTASSIUM 4.2 MEQ/L (3.7-5.4); SAMPLE HEMOLYSIS CHECK 0; SAMPLE ICTERIC CHECK 0; SAMPLE LIPEMIA CHECK 0; SODIUM 142 MEQ/L (136-147); UREA NITROGEN (BUN) 14 mg/dL (9-23)
[2017-03-06 06:20] LABS: POINT-OF-CARE METER ID UU14208751
[2017-03-06 09:21] LABS: INTERNAL CONTROL VALID? YES
[2017-03-06 11:42] LABS: POINT-OF-CARE METER ID UU14208751
[2017-03-06 18:07] LABS: POINT-OF-CARE METER ID UU14208751
[2017-03-06 21:57] LABS: POINT-OF-CARE METER ID UU14208751
[2017-03-07] VITALS (17 sets, daily range): BP systolic 98–135; BP diastolic 42–95
[2017-03-07 00:17] LABS: POINT-OF-CARE METER ID UU14208751
[2017-03-07 06:18] LABS: POINT-OF-CARE METER ID UU13113731
[2017-03-07 06:29] LABS: ANION GAP 10 MEQ/L (2-14); CHLORIDE 103 MEQ/L (99-109); GFR ESTIMATE (CALCULATED) > 59 mL/min/; SAMPLE HEMOLYSIS CHECK 0; SAMPLE ICTERIC CHECK 0; SAMPLE LIPEMIA CHECK 0; SODIUM 145 MEQ/L (136-147); UREA NITROGEN (BUN) 19 mg/dL (9-23)
[2017-03-07 06:30] LABS: GLUCOSE 119 mg/dL (70-99); POTASSIUM 2.9 MEQ/L (3.7-5.4)
[2017-03-07 13:20] LABS: POINT-OF-CARE METER ID UU13113731
[2017-03-07 17:56] LABS: ANION GAP 11 MEQ/L (2-14); CHLORIDE 105 MEQ/L (99-109); GFR ESTIMATE (CALCULATED) > 59 mL/min/; GLUCOSE 151 mg/dL (70-99); MAGNESIUM 1.8 mg/dl (1.3-2.7); SAMPLE HEMOLYSIS CHECK 0; SAMPLE ICTERIC CHECK 0; SAMPLE LIPEMIA CHECK 0; SODIUM 142 MEQ/L (136-147); UREA NITROGEN (BUN) 18 mg/dL (9-23)
[2017-03-07 18:03] LABS: POINT-OF-CARE METER ID UU13113731; POINT-OF-CARE USER ID 606021424
[2017-03-07 21:07] LABS: POINT-OF-CARE METER ID UU13113731
[2017-03-08] VITALS (8 sets, daily range): BP systolic 108–137; BP diastolic 51–61
[2017-03-08 05:39] LABS: EOSINOPHIL (%) 3.1 % (0-5); EOSINOPHIL COUNT 0.1 K/uL (0-0.3); HEMATOCRIT 30.9 % (36.0-46.0); IMMATURE GRANULOCYTE (%) 0.4 % (0.0-0.7); INSTRUMENT ABS NEUTROPHIL CT 2.4 K/uL; LYMPHOCYTE COUNT 1.4 K/uL (1.0-2.8); MCH 29.8 PG (29.0-34.0); MCV 93.1 FL (83-99); MEAN PLAT.VOLUME 10.3 uM^3 (9.5-12.4); MONOCYTE (%) 12.1 % (3-12); MONOCYTE COUNT 0.5 K/uL (0-0.8); NEUTROPHIL (%) 52.6 % (45-76); NEUTROPHIL COUNT 2.4 K/uL (1.8-6.4); PLATELET COUNT 271 K/uL (156-360); RBC DIS.WIDTH-CV 15.9 % (11.8-14.6); RBC DIS.WIDTH-SD 53.2 % (39-53); RED BLOOD COUNT 3.32 M/uL (3.80-5.20); WHITE BLOOD COUNT 4.5 K/uL (4.1-10.2)
[2017-03-08 06:19] LABS: ANION GAP 7 MEQ/L (2-14); CHLORIDE 103 MEQ/L (99-109); GFR ESTIMATE (CALCULATED) > 59 mL/min/; GLUCOSE 132 mg/dL (70-99); POTASSIUM 4.1 MEQ/L (3.7-5.4); SAMPLE HEMOLYSIS CHECK 0; SAMPLE ICTERIC CHECK 0; SAMPLE LIPEMIA CHECK 0; SODIUM 144 MEQ/L (136-147); UREA NITROGEN (BUN) 17 mg/dL (9-23)
[2017-03-08 08:22] LABS: POINT-OF-CARE METER ID UU13113731
[2017-03-08 12:15] LABS: POINT-OF-CARE METER ID UU13113731
[2017-03-08 17:13] LABS: POINT-OF-CARE METER ID UU13113731; POINT-OF-CARE USER ID 606021424
== END 2017-03-08 21:26 | disposition left against medical advice (07) | DRG 208 ==
LOC: EME 16:35 → 4WEST 20:28 → EDOF 20:28 → CANRESERV 20:29 → ENRESERV 20:29 → 5SOUTH 21:34 → ENRESERV 03-06 00:57 → 4WEST 03-06 01:00 → ENRESERV 03-06 01:00 → 4WEST 03-06 01:01 → ENRESERV 03-08 17:33 → CANRESERV 03-08 18:10 → 4WEST 03-08 21:26
PROVIDERS: Emergency Medicine; Hospitalist; Internal Medicine Critical Care Medicine
DX: J96.01 Acute respiratory failure with hypoxia (principal); I50.23 Acute on chronic systolic (congestive) heart failure; J15.9 Unspecified bacterial pneumonia; I42.9 Cardiomyopathy, unspecified; I11.0 Hypertensive heart disease with heart failure; Z91.19 Patient's noncompliance with other medical treatment and regimen; Z86.73 Personal history of transient ischemic attack (TIA), and cerebral infarction without residual deficits; E11.9 Type 2 diabetes mellitus without complications; E05.90 Thyrotoxicosis, unspecified without thyrotoxic crisis or storm; J44.0 Chronic obstructive pulmonary disease with (acute) lower respiratory infection; I25.2 Old myocardial infarction; Z85.3 Personal history of malignant neoplasm of breast; Z80.9 Family history of malignant neoplasm, unspecified; Z79.899 Other long term (current) drug therapy; Y95 Nosocomial condition; Z79.82 Long term (current) use of aspirin; Z87.891 Personal history of nicotine dependence; I25.10 Atherosclerotic heart disease of native coronary artery without angina pectoris; Z79.4 Long term (current) use of insulin; E87.6 Hypokalemia; T50.1X5A Adverse effect of loop [high-ceiling] diuretics, initial encounter; Z95.5 Presence of coronary angioplasty implant and graft
CPT/HCPCS: 36600; 70450; 71010; 71020; 80048; 80048 91; 80053; 80200; 81003; 82803; 82948; 83605; 83735; 83880; 84100; 84132 91; 84484; 85025; 85025 91; 85027; 87040; 87070; 87086; 87106; 87205; 87449; 87502; 87641; 93005; 94002; 94003; 94640; 94640 76; 94760; 94799; 97530 GP; 99202; 99281; 99285; J0696; J1650; J1815; J1940; J1956; J2060; J2250; J2704; J3260; J7050; J7644

== ENCOUNTER 2017-05-18 04:44 | Inpatient (IN) | payer OTHER ==
[~2017-05-18] VITALS: Ht 162.6 cm; Wt 46.1 kg
[2017-05-18 05:52] LABS: HEMATOCRIT 39.2 % (36.0-46.0); MCH 30.1 PG (29.0-34.0); MCHC 34.4 G/DL (30.0-36.0); MCV 87.5 FL (83-99); MEAN PLAT.VOLUME 10.3 uM^3 (9.5-12.4); PLATELET COUNT 247 K/uL (156-360); RBC DIS.WIDTH-SD 41.4 % (39-53); RED BLOOD COUNT 4.48 M/uL (3.80-5.20); WHITE BLOOD COUNT 6.4 K/uL (4.1-10.2)
[2017-05-18 06:00] LABS: CHLORIDE 101 mEq/L (99-109); POTASSIUM 4.1 mEq/L (3.7-5.4); SODIUM 136 mEq/L (136-147)
[2017-05-18 06:01] LABS: GLUCOSE 306 mg/dL (70-99)
[2017-05-18 06:03] LABS: ANION GAP 9 MEQ/L (2-14)
[2017-05-18 06:05] LABS: GFR ESTIMATE (CALCULATED) > 59 mL/min/
[2017-05-18 06:06] LABS: UREA NITROGEN (BUN) 19 mg/dL (9-23)
[2017-05-18 06:11] LABS: TROP-I INTERPRETATION NEGATIVE; TROPONIN-I 0.02 ng/mL (0.0-0.30)
[2017-05-18 08:10] VITALS: BP 151/67
[2017-05-18 12:26] VITALS: BP 166/69
[2017-05-18 12:39] LABS: POINT-OF-CARE METER ID UU13113700
[2017-05-18 13:38] LABS: TROP-I INTERPRETATION NEGATIVE; TROPONIN-I 0.03 ng/mL (0.0-0.30)
[2017-05-18] MEDS ORDERED: NEURONTIN600 MG PO (14:02)
[2017-05-18 15:40] VITALS: BP 119/58
[2017-05-18 15:54] LABS: C-REACTIVE PROTEIN 1.6 MG/L (0-10)
[2017-05-18 16:53] LABS: POINT-OF-CARE METER ID UU13113831
[2017-05-18 19:11] VITALS: BP 119/58
[2017-05-18 19:17] LABS: TROP-I INTERPRETATION NEGATIVE; TROPONIN-I 0.02 ng/mL (0.0-0.30)
[2017-05-18 21:36] LABS: POINT-OF-CARE METER ID UU13113831
[2017-05-18 23:16] VITALS: BP 153/67
[2017-05-19] VITALS (7 sets, daily range): BP systolic 135–156; BP diastolic 61–68
[2017-05-19 05:37] LABS: GFR ESTIMATE (CALCULATED) > 59 mL/min/
[2017-05-19 17:35] LABS: POINT-OF-CARE METER ID UU13113675
[2017-05-20 04:18] VITALS: BP 167/67
[2017-05-20 05:15] VITALS: BP 121/58
[2017-05-20 05:29] LABS: HEMATOCRIT 39.4 % (36.0-46.0); MCH 29.6 PG (29.0-34.0); MCHC 33.8 G/DL (30.0-36.0); MCV 87.6 FL (83-99); MEAN PLAT.VOLUME 10.2 uM^3 (9.5-12.4); PLATELET COUNT 228 K/uL (156-360); RBC DIS.WIDTH-CV 12.7 % (11.8-14.6); RBC DIS.WIDTH-SD 40.9 % (39-53); WHITE BLOOD COUNT 9.6 K/uL (4.1-10.2)
[2017-05-20 08:08] VITALS: BP 131/60
[2017-05-20 08:08] LABS: POINT-OF-CARE METER ID UU13113700
[2017-05-20 12:19] VITALS: BP 139/65
[2017-05-20 16:10] VITALS: BP 132/62
[2017-05-20 19:56] VITALS: BP 146/65
[2017-05-20 21:45] LABS: POINT-OF-CARE METER ID UU13113831
[2017-05-21 00:24] VITALS: BP 163/69
[2017-05-21 04:01] VITALS: BP 167/72
[2017-05-21 06:47] LABS: ALKALINE PHOSPHATASE 142 IU/L (3-129); ANION GAP 8 MEQ/L (2-14); CHLORIDE 105 MEQ/L (99-109); GFR ESTIMATE (CALCULATED) > 59 mL/min/; GLUCOSE 250 mg/dL (70-99); POTASSIUM 4.3 MEQ/L (3.7-5.4); SAMPLE HEMOLYSIS CHECK 0; SAMPLE ICTERIC CHECK 0; SAMPLE LIPEMIA CHECK 0; SODIUM 139 MEQ/L (136-147); TOTAL BILIRUBIN 0.4 MG/DL (0.0-1.0); UREA NITROGEN (BUN) 17 mg/dL (9-23)
[2017-05-21 07:04] LABS: BASOPHIL COUNT 0.1 K/uL (0-0.1); EOSINOPHIL (%) 1.8 % (0-5); EOSINOPHIL COUNT 0.1 K/uL (0-0.3); HEMATOCRIT 36.1 % (36.0-46.0); IMMATURE GRANULOCYTE (%) 0.4 % (0.0-0.7); INSTRUMENT ABS NEUTROPHIL CT 4.6 K/uL; LYMPHOCYTE COUNT 1.6 K/uL (1.0-2.8); MCH 29.9 PG (29.0-34.0); MCHC 34.1 G/DL (30.0-36.0); MCV 87.8 FL (83-99); MEAN PLAT.VOLUME 10.8 uM^3 (9.5-12.4); MONOCYTE (%) 9.5 % (3-12); MONOCYTE COUNT 0.7 K/uL (0-0.8); NEUTROPHIL (%) 64.9 % (45-76); NEUTROPHIL COUNT 4.6 K/uL (1.8-6.4); PLATELET COUNT 189 K/uL (156-360); RBC DIS.WIDTH-CV 12.9 % (11.8-14.6); RBC DIS.WIDTH-SD 41.4 % (39-53); RED BLOOD COUNT 4.11 M/uL (3.80-5.20); WHITE BLOOD COUNT 7.1 K/uL (4.1-10.2)
[2017-05-21 07:40] VITALS: BP 165/70
[2017-05-21 09:14] LABS: POINT-OF-CARE METER ID UU13113831
[2017-05-21 11:55] VITALS: BP 131/64
[2017-05-21 12:48] LABS: POINT-OF-CARE METER ID UU13113831
[2017-05-21 15:47] VITALS: BP 139/64
[2017-05-21 17:43] LABS: POINT-OF-CARE METER ID UU13113831
[2017-05-21 19:26] VITALS: BP 147/69
== END 2017-05-21 21:40 | disposition left against medical advice (07) | DRG 504 ==
LOC: EME → EDBD 04:44 → EME 04:44 → EDOF 07:27 → 5WEST 07:27 → ENRESERV 07:28 → EDOF 07:29 → ENRESERV 07:41 → 5WEST 08:00 → ENRESERV 14:23 → CANRESERV 14:23 → 5WEST 05-21 21:40
PROVIDERS: Emergency Medicine; Internal Medicine; Internal Medicine Infectious Disease; Student in an Organized Health Care Education/Training Program; Surgery
PROC: 0SBM0ZZ Excision of Right Metatarsal-Phalangeal Joint, Open Approach (ICD-10-PCS; principal; 2017-05-19)
DX: M86.9 Osteomyelitis, unspecified (principal); I50.9 Heart failure, unspecified; I73.9 Peripheral vascular disease, unspecified; E11.40 Type 2 diabetes mellitus with diabetic neuropathy, unspecified; E11.69 Type 2 diabetes mellitus with other specified complication; I70.1 Atherosclerosis of renal artery; I11.0 Hypertensive heart disease with heart failure; J44.9 Chronic obstructive pulmonary disease, unspecified; I25.10 Atherosclerotic heart disease of native coronary artery without angina pectoris; E78.5 Hyperlipidemia, unspecified; K21.9 Gastro-esophageal reflux disease without esophagitis; I25.5 Ischemic cardiomyopathy; L02.611 Cutaneous abscess of right foot; F17.210 Nicotine dependence, cigarettes, uncomplicated; E05.90 Thyrotoxicosis, unspecified without thyrotoxic crisis or storm; M79.7 Fibromyalgia; F41.9 Anxiety disorder, unspecified; Z68.1 Body mass index [BMI] 19.9 or less, adult; Z95.5 Presence of coronary angioplasty implant and graft; Z86.73 Personal history of transient ischemic attack (TIA), and cerebral infarction without residual deficits; Z85.41 Personal history of malignant neoplasm of cervix uteri; Z89.421 Acquired absence of other right toe(s); Z79.4 Long term (current) use of insulin; Z79.82 Long term (current) use of aspirin; Z79.899 Other long term (current) drug therapy; I25.2 Old myocardial infarction; Z88.0 Allergy status to penicillin; Z91.040 Latex allergy status; Z82.49 Family history of ischemic heart disease and other diseases of the circulatory system
CPT/HCPCS: 71010; 73720; 80048; 80053; 80202; 82565; 82948; 83880; 84484; 85025; 85027; 85651; 86140; 87040; 87070; 87075; 87076; 87205; 93005; 94640; 94640 76; 94760; 99281; 99285; J0131; J1170; J1650; J1815; J1885; J1940; J2270; J2405; J3370; S0020

== ENCOUNTER 2017-06-26 06:24 | Observation (INO) | payer OTHER ==
[~2017-06-26] VITALS: Ht 162.6 cm; Wt 44.3 kg
[2017-06-26 07:15] LABS: EOSINOPHIL (%) 1.8 % (0-5); EOSINOPHIL COUNT 0.1 K/uL (0-0.3); HEMATOCRIT 38.4 % (36.0-46.0); IMMATURE GRANULOCYTE (%) 0.2 % (0.0-0.7); INSTRUMENT ABS NEUTROPHIL CT 3.3 K/uL; LYMPHOCYTE COUNT 1.6 K/uL (1.0-2.8); MCH 29.8 PG (29.0-34.0); MCHC 33.6 G/DL (30.0-36.0); MCV 88.7 FL (83-99); MEAN PLAT.VOLUME 10.5 uM^3 (9.5-12.4); MONOCYTE (%) 6.8 % (3-12); MONOCYTE COUNT 0.4 K/uL (0-0.8); NEUTROPHIL COUNT 3.3 K/uL (1.8-6.4); PLATELET COUNT 230 K/uL (156-360); RBC DIS.WIDTH-CV 12.8 % (11.8-14.6); RBC DIS.WIDTH-SD 41.9 % (39-53); RED BLOOD COUNT 4.33 M/uL (3.80-5.20); WHITE BLOOD COUNT 5.5 K/uL (4.1-10.2)
[2017-06-26 07:24] LABS: PROTHROMBIN TIME 10.9 SEC (10.2-12.9)
[2017-06-26 07:27] LABS: PTT 26.6 SEC (25-37)
[2017-06-26 07:39] LABS: TROP-I INTERPRETATION NEGATIVE; TROPONIN-I 0.01 ng/mL (0.0-0.30)
[2017-06-26 07:58] LABS: ANION GAP 5 MEQ/L (2-14); CHLORIDE 95 MEQ/L (99-109); GFR ESTIMATE (CALCULATED) > 59 mL/min/; GLUCOSE 715 mg/dL (70-99); POTASSIUM 4.7 MEQ/L (3.7-5.4); SAMPLE HEMOLYSIS CHECK 0; SAMPLE ICTERIC CHECK 0; SAMPLE LIPEMIA CHECK 0; SODIUM 131 MEQ/L (136-147); UREA NITROGEN (BUN) 19 mg/dL (9-23)
[2017-06-26 10:13] LABS: POINT-OF-CARE METER ID UU13113702
[2017-06-26 10:42] VITALS: BP 159/72
[2017-06-26] MEDS ORDERED: LO-DOSE ASPIRIN81 M2 PO (11:40)
[2017-06-26 12:01] LABS: POINT-OF-CARE METER ID UU14162513
[2017-06-26 14:43] LABS: Estimated Average Glucose 315 mg/dL (70-123); HEMOGLOBIN A1c (GLYCOHEMOGLOB) 12.6 % HGB (Below 5.7)
[2017-06-26 14:54] LABS: TROP-I INTERPRETATION NEGATIVE; TROPONIN-I 0.02 ng/mL (0.0-0.30)
[2017-06-26 15:53] VITALS: BP 111/53
[2017-06-26 17:26] LABS: POINT-OF-CARE METER ID UU14162513
[2017-06-26 19:40] LABS: EOSINOPHIL (%) 1.8 % (0-5); EOSINOPHIL COUNT 0.1 K/uL (0-0.3); HEMATOCRIT 34.1 % (36.0-46.0); IMMATURE GRANULOCYTE (%) 0.3 % (0.0-0.7); INSTRUMENT ABS NEUTROPHIL CT 4.4 K/uL; LYMPHOCYTE COUNT 1.6 K/uL (1.0-2.8); MCH 30.6 PG (29.0-34.0); MCHC 34.6 G/DL (30.0-36.0); MCV 88.3 FL (83-99); MEAN PLAT.VOLUME 10.2 uM^3 (9.5-12.4); MONOCYTE (%) 6.1 % (3-12); MONOCYTE COUNT 0.4 K/uL (0-0.8); NEUTROPHIL (%) 67.1 % (45-76); NEUTROPHIL COUNT 4.4 K/uL (1.8-6.4); PLATELET COUNT 198 K/uL (156-360); RED BLOOD COUNT 3.86 M/uL (3.80-5.20); WHITE BLOOD COUNT 6.6 K/uL (4.1-10.2)
[2017-06-26 20:00] VITALS: BP 111/52
[2017-06-26 20:03] LABS: TROP-I INTERPRETATION NEGATIVE; TROPONIN-I 0.02 ng/mL (0.0-0.30)
[2017-06-26 20:04] LABS: ALKALINE PHOSPHATASE 151 IU/L (3-129); ANION GAP 5 MEQ/L (2-14); CHLORIDE 104 MEQ/L (99-109); GFR ESTIMATE (CALCULATED) > 59 mL/min/; GLUCOSE 292 mg/dL (70-99); MAGNESIUM 1.9 mg/dl (1.3-2.7); POTASSIUM 4.4 MEQ/L (3.7-5.4); SAMPLE HEMOLYSIS CHECK 0; SAMPLE ICTERIC CHECK 0; SAMPLE LIPEMIA CHECK 0; SODIUM 136 MEQ/L (136-147); TOTAL BILIRUBIN 0.4 MG/DL (0.0-1.0); UREA NITROGEN (BUN) 22 mg/dL (9-23)
[2017-06-26 20:08] LABS: CARBON DIOXIDE (BICARBONATE) 31.9 MEQ/L (20-31)
[2017-06-26 20:33] LABS: POINT-OF-CARE METER ID UU14162513
== END 2017-06-26 22:00 | disposition left against medical advice (07) ==
LOC: EME 06:24 → EDOF 08:22 → ENRESERV 08:24 → 5WEST 10:26
PROVIDERS: Emergency Medicine; Internal Medicine; Physician Assistant Medical
DX: R07.9 Chest pain, unspecified (principal); R94.31 Abnormal electrocardiogram [ECG] [EKG]; I25.10 Atherosclerotic heart disease of native coronary artery without angina pectoris; I25.2 Old myocardial infarction; I11.0 Hypertensive heart disease with heart failure; I50.9 Heart failure, unspecified; L02.611 Cutaneous abscess of right foot; Z91.14 Patient's other noncompliance with medication regimen; Z91.19 Patient's noncompliance with other medical treatment and regimen; Z95.1 Presence of aortocoronary bypass graft; Z95.5 Presence of coronary angioplasty implant and graft; E87.1 Hypo-osmolality and hyponatremia; E78.5 Hyperlipidemia, unspecified; E11.51 Type 2 diabetes mellitus with diabetic peripheral angiopathy without gangrene; Z79.4 Long term (current) use of insulin; F17.210 Nicotine dependence, cigarettes, uncomplicated; Z86.73 Personal history of transient ischemic attack (TIA), and cerebral infarction without residual deficits; E11.65 Type 2 diabetes mellitus with hyperglycemia; I25.5 Ischemic cardiomyopathy; I70.1 Atherosclerosis of renal artery; J44.9 Chronic obstructive pulmonary disease, unspecified; F10.10 Alcohol abuse, uncomplicated; Z88.0 Allergy status to penicillin; Z88.1 Allergy status to other antibiotic agents; Z88.8 Allergy status to other drugs, medicaments and biological substances; Z85.3 Personal history of malignant neoplasm of breast; Z85.41 Personal history of malignant neoplasm of cervix uteri; Z90.710 Acquired absence of both cervix and uterus
CPT/HCPCS: 71010; 80048; 80053; 82803; 82948; 83036; 83605; 83735; 84100; 84484; 85025; 85025 91; 85610; 85730; 87070; 87205; 93005; 99202; 99281; 99285; G0378; J1650; J1815; J2270; J7030

== ENCOUNTER 2017-07-12 01:36 | Emergency (ER) | payer OTHER ==
[~2017-07-12] VITALS: Ht 162.6 cm; Wt 44.9 kg
[~2017-07-12 01:36] MED LIST changes: +LO-DOSE ASPIRIN81 M2 PO
[2017-07-12] MEDS ORDERED: MIRALAX119 GM PO (03:00)
[2017-07-12 03:09] VITALS: BP 100/66
== END 2017-07-12 03:12 | disposition home or self-care (01) ==
LOC: EME → EDBD 01:36 → EME 03:12
DX: K59.00 Constipation, unspecified (principal); R10.84 Generalized abdominal pain; I11.0 Hypertensive heart disease with heart failure; I50.9 Heart failure, unspecified; E11.9 Type 2 diabetes mellitus without complications; J44.9 Chronic obstructive pulmonary disease, unspecified; E78.5 Hyperlipidemia, unspecified; K21.9 Gastro-esophageal reflux disease without esophagitis; I25.2 Old myocardial infarction; F32.9 Major depressive disorder, single episode, unspecified; F41.9 Anxiety disorder, unspecified; I69.954 Hemiplegia and hemiparesis following unspecified cerebrovascular disease affecting left non-dominant side; R56.9 Unspecified convulsions; Z85.41 Personal history of malignant neoplasm of cervix uteri; I25.10 Atherosclerotic heart disease of native coronary artery without angina pectoris; F17.200 Nicotine dependence, unspecified, uncomplicated; Z85.3 Personal history of malignant neoplasm of breast; Z95.5 Presence of coronary angioplasty implant and graft; Z79.82 Long term (current) use of aspirin; Z88.0 Allergy status to penicillin; Z91.040 Latex allergy status; Z88.1 Allergy status to other antibiotic agents; Z90.710 Acquired absence of both cervix and uterus
CPT/HCPCS: 74000; 99281; 99284; J2765

== ENCOUNTER 2017-07-21 21:43 | Emergency (ER) | payer OTHER ==
[~2017-07-21] VITALS: Ht 162.6 cm; Wt 45.4 kg
[~2017-07-21 21:43] MED LIST changes: +MIRALAX119 GM PO
[2017-07-21] MEDS ORDERED: DOXYCYCLINE MO100 MG PO (23:21)
[2017-07-21 23:24] LABS: POINT-OF-CARE METER ID UU13113800
[2017-07-21 23:29] VITALS: BP 118/57
[2017-07-25 12:16] LABS: POINT-OF-CARE METER ID UU13113800
== END 2017-07-21 23:31 | disposition home or self-care (01) ==
LOC: RME 21:43 → EME 21:43 → RME 23:31
PROVIDERS: Physician Assistant
DX: L03.115 Cellulitis of right lower limb (principal); Z89.421 Acquired absence of other right toe(s); I10 Essential (primary) hypertension; E11.9 Type 2 diabetes mellitus without complications; Z79.4 Long term (current) use of insulin; Z85.3 Personal history of malignant neoplasm of breast; Z85.41 Personal history of malignant neoplasm of cervix uteri; Z90.710 Acquired absence of both cervix and uterus; Z95.5 Presence of coronary angioplasty implant and graft; Z79.82 Long term (current) use of aspirin; Z88.0 Allergy status to penicillin; F17.200 Nicotine dependence, unspecified, uncomplicated
CPT/HCPCS: 73630; 82948; 87070; 87075; 87076; 87205; 99281; 99284

== ENCOUNTER 2017-08-10 03:43 | Emergency (ER) | payer OTHER ==
[~2017-08-10] VITALS: Ht 162.6 cm; Wt 40.0 kg
[~2017-08-10 03:43] MED LIST changes: +DOXYCYCLINE MO100 MG PO
[2017-08-10 04:33] LABS: HEMATOCRIT 33.5 % (36.0-46.0); HEMOGLOBIN 11.6 G/DL (11.9-15.5); MCH 31.1 PG (29.0-34.0); MCHC 34.6 G/DL (30.0-36.0); MCV 89.8 FL (83-99); PLATELET COUNT 226 K/uL (156-360); RBC DIS.WIDTH-CV 12.4 % (11.8-14.6); RBC DIS.WIDTH-SD 40.3 % (39-53); RED BLOOD COUNT 3.73 M/uL (3.80-5.20); WHITE BLOOD COUNT 5.5 K/uL (4.1-10.2)
[2017-08-10 04:43] LABS: CHLORIDE 98 mEq/L (99-109); POTASSIUM 3.9 mEq/L (3.7-5.4); SODIUM 131 mEq/L (136-147)
[2017-08-10 04:48] LABS: CREATININE 0.8 mg/dL (0.6-1.3); GFR ESTIMATE (CALCULATED) > 59 mL/min/
[2017-08-10 04:49] LABS: UREA NITROGEN (BUN) 15 mg/dL (9-23)
[2017-08-10 04:51] LABS: GLUCOSE 446 mg/dL (70-99)
[2017-08-10 04:55] LABS: TROP-I INTERPRETATION NEGATIVE; TROPONIN-I 0.02 ng/mL (0.0-0.30)
[2017-08-10] MEDS ORDERED: AZITHROMYCIN250 MG1 PO (05:20)
[2017-08-10 05:42] VITALS: BP 110/60
== END 2017-08-10 05:43 | disposition home or self-care (01) ==
LOC: EME 03:43
PROVIDERS: Emergency Medicine Emergency Medical Services
DX: J18.9 Pneumonia, unspecified organism (principal); E11.65 Type 2 diabetes mellitus with hyperglycemia; E11.40 Type 2 diabetes mellitus with diabetic neuropathy, unspecified; I11.0 Hypertensive heart disease with heart failure; I50.9 Heart failure, unspecified; J44.0 Chronic obstructive pulmonary disease with (acute) lower respiratory infection; I25.2 Old myocardial infarction; K21.9 Gastro-esophageal reflux disease without esophagitis; I69.398 Other sequelae of cerebral infarction; F41.9 Anxiety disorder, unspecified; F32.9 Major depressive disorder, single episode, unspecified; I25.10 Atherosclerotic heart disease of native coronary artery without angina pectoris; F17.200 Nicotine dependence, unspecified, uncomplicated; Z79.4 Long term (current) use of insulin; Z79.82 Long term (current) use of aspirin; Z95.5 Presence of coronary angioplasty implant and graft; Z85.3 Personal history of malignant neoplasm of breast; Z85.41 Personal history of malignant neoplasm of cervix uteri; Z88.0 Allergy status to penicillin; Z88.8 Allergy status to other drugs, medicaments and biological substances
CPT/HCPCS: 71046; 80048; 83880; 84484; 85027; 93005; 99281; 99285; J2270

== ENCOUNTER 2017-08-18 13:07 | Emergency (ER) | payer OTHER ==
[~2017-08-18] VITALS: Ht 162.6 cm; Wt 45.0 kg
[~2017-08-18 13:07] MED LIST changes: +AZITHROMYCIN250 MG1 PO
[2017-08-18 13:34] VITALS: BP 118/56
[2017-08-18] MEDS ORDERED: LANTUS 3 M100 UNITS1 SC ×2 (17:47)
[2017-08-18] MEDS ORDERED: CILOSTAZOL50 MG PO (17:47)
[2017-08-18] MEDS ORDERED: GABAPENTIN600 MG PO (17:48)
[2017-08-18] MEDS ORDERED: CYMBALTA30 MG PO (17:48)
[2017-08-18] MEDS ORDERED: LOPRESSOR25 MG PO (17:48)
== END 2017-08-18 14:02 | disposition left against medical advice (07) ==
LOC: EME 13:07
DX: Z53.21 Procedure and treatment not carried out due to patient leaving prior to being seen by health care provider (principal)

== ENCOUNTER 2017-08-18 14:45 | Inpatient (IN) | payer OTHER ==
[~2017-08-18] VITALS: Ht 162.6 cm; Wt 43.1 kg
[2017-08-18 16:32] LABS: HEMATOCRIT 37.1 % (36.0-46.0); HEMOGLOBIN 12.7 G/DL (11.9-15.5); MCH 30.8 PG (29.0-34.0); MCHC 34.2 G/DL (30.0-36.0); PLATELET COUNT 327 K/uL (156-360); RBC DIS.WIDTH-CV 12.2 % (11.8-14.6); RBC DIS.WIDTH-SD 40.1 % (39-53); RED BLOOD COUNT 4.12 M/uL (3.80-5.20); WHITE BLOOD COUNT 9.4 K/uL (4.1-10.2)
[2017-08-18 16:42] LABS: CHLORIDE 102 mEq/L (99-109); POTASSIUM 4.4 mEq/L (3.7-5.4); SODIUM 135 mEq/L (136-147)
[2017-08-18 16:44] LABS: GLUCOSE 371 mg/dL (70-99)
[2017-08-18 16:48] LABS: CREATININE 0.8 mg/dL (0.6-1.3); GFR ESTIMATE (CALCULATED) > 59 mL/min/; UREA NITROGEN (BUN) 11 mg/dL (9-23)
[2017-08-18] MEDS ORDERED: LANTUS 3 M100 UNITS1 SC ×2 (17:47)
[2017-08-18] MEDS ORDERED: CILOSTAZOL50 MG PO (17:47)
[2017-08-18] MEDS ORDERED: GABAPENTIN600 MG PO (17:48)
[2017-08-18] MEDS ORDERED: LOPRESSOR25 MG PO (17:48)
[2017-08-18] MEDS ORDERED: CYMBALTA30 MG PO (17:48)
[2017-08-18 20:04] VITALS: BP 103/57
[2017-08-18 23:55] VITALS: BP 128/57
[2017-08-19 03:24] VITALS: BP 136/63
[2017-08-19 06:07] LABS: CHLORIDE 104 MEQ/L (99-109); CREATININE 0.5 MG/DL (0.6-1.3); GFR ESTIMATE (CALCULATED) > 59 mL/min/; GLUCOSE 269 mg/dL (70-99); POTASSIUM 3.7 MEQ/L (3.7-5.4); SODIUM 139 MEQ/L (136-147); UREA NITROGEN (BUN) 10 mg/dL (9-23)
[2017-08-19 07:40] VITALS: BP 155/69
[2017-08-19 16:20] VITALS: BP 144/65
[2017-08-20 00:08] VITALS: BP 135/63
[2017-08-20 06:09] LABS: BASOPHIL (%) 0.4 % (0-1); EOSINOPHIL (%) 2.2 % (0-5); EOSINOPHIL COUNT 0.2 K/uL (0-0.3); HEMATOCRIT 31.1 % (36.0-46.0); IMMATURE GRANULOCYTE (%) 0.4 % (0.0-0.7); LYMPHOCYTE (%) 19.6 % (15-42); LYMPHOCYTE COUNT 1.8 K/uL (1.0-2.8); MCH 30.4 PG (29.0-34.0); MCHC 32.8 G/DL (30.0-36.0); MCV 92.8 FL (83-99); MONOCYTE (%) 8.4 % (3-12); MONOCYTE COUNT 0.8 K/uL (0-0.8); NEUTROPHIL COUNT 6.4 K/uL (1.8-6.4); PLATELET COUNT 299 K/uL (156-360); RBC DIS.WIDTH-CV 12.3 % (11.8-14.6); RBC DIS.WIDTH-SD 41.6 % (39-53); RED BLOOD COUNT 3.35 M/uL (3.80-5.20); WHITE BLOOD COUNT 9.3 K/uL (4.1-10.2)
[2017-08-20 06:10] LABS: HEMOGLOBIN 10.2 G/DL (11.9-15.5)
[2017-08-20 06:49] LABS: ALBUMIN 2.6 G/DL (3.2-4.8); ALT (GPT) 11 IU/L (3-49); CHLORIDE 106 MEQ/L (99-109); CREATININE 0.6 MG/DL (0.6-1.3); GFR ESTIMATE (CALCULATED) > 59 mL/min/; POTASSIUM 3.6 MEQ/L (3.7-5.4); SODIUM 134 MEQ/L (136-147); TOTAL PROTEIN 5.7 G/DL (6.4-8.3); UREA NITROGEN (BUN) 11 mg/dL (9-23)
[2017-08-20 06:52] LABS: ALKALINE PHOSPHATASE 176 IU/L (3-129); AST (GOT) 17 IU/L (2-34); GLUCOSE 79 mg/dL (70-99); TOTAL BILIRUBIN 0.5 MG/DL (0.0-1.0)
[2017-08-20 07:41] VITALS: BP 136/79
[2017-08-20 15:52] VITALS: BP 139/65
[2017-08-20 21:50] LABS: TROP-I INTERPRETATION NEGATIVE; TROPONIN-I 0.01 ng/mL (0.0-0.30)
[2017-08-20 21:55] LABS: ALBUMIN 2.6 G/DL (3.2-4.8); ALKALINE PHOSPHATASE 223 IU/L (3-129); ALT (GPT) 21 IU/L (3-49); AST (GOT) 39 IU/L (2-34); CHLORIDE 103 MEQ/L (99-109); CREATININE 0.9 MG/DL (0.6-1.3); DIRECT BILIRUBIN 0.1 mg/dL (0.0-0.3); GFR ESTIMATE (CALCULATED) > 59 mL/min/; GLUCOSE 273 mg/dL (70-99); MAGNESIUM 1.9 mg/dl (1.3-2.7); PHOSPHORUS 3.9 mg/dL (2.5-4.9); SODIUM 135 MEQ/L (136-147); TOTAL BILIRUBIN 0.5 MG/DL (0.0-1.0); TOTAL PROTEIN 5.3 G/DL (6.4-8.3); UREA NITROGEN (BUN) 16 mg/dL (9-23)
[2017-08-20 23:40] VITALS: BP 122/56
[2017-08-21 05:09] LABS: TROP-I INTERPRETATION NEGATIVE; TROPONIN-I < 0.01 ng/mL (0.0-0.30)
[2017-08-21 05:10] LABS: CREATININE 0.9 mg/dL (0.6-1.3); GFR ESTIMATE (CALCULATED) > 59 mL/min/
[2017-08-21 06:27] LABS: VANCOMYCIN, TROUGH 10.3 MCG/ML (10-20)
[2017-08-21 08:03] VITALS: BP 128/62
[2017-08-21 20:28] LABS: HEMATOCRIT 31.3 % (36.0-46.0); HEMOGLOBIN 10.2 G/DL (11.9-15.5); MCH 30.2 PG (29.0-34.0); MCHC 32.6 G/DL (30.0-36.0); MCV 92.6 FL (83-99); RBC DIS.WIDTH-CV 12.3 % (11.8-14.6); RBC DIS.WIDTH-SD 42.1 % (39-53); RED BLOOD COUNT 3.38 M/uL (3.80-5.20); WHITE BLOOD COUNT 17.1 K/uL (4.1-10.2)
[2017-08-21 20:40] LABS: CHLORIDE 106 MEQ/L (99-109); POTASSIUM 4.4 MEQ/L (3.7-5.4); SODIUM 137 MEQ/L (136-147)
[2017-08-21 20:48] LABS: TROP-I INTERPRETATION NEGATIVE; TROPONIN-I 0.03 ng/mL (0.0-0.30)
[2017-08-21 20:50] LABS: CREATININE 0.6 MG/DL (0.6-1.3); GFR ESTIMATE (CALCULATED) > 59 mL/min/; UREA NITROGEN (BUN) 16 mg/dL (9-23)
[2017-08-21 20:51] LABS: GLUCOSE 82 mg/dL (70-99)
[2017-08-21 20:53] LABS: PLATELET CLUMPS PRESENT; PLATELET COUNT 322 K/uL (156-360)
[2017-08-21 20:54] LABS: PLAT.SUFFICIENCY ADEQUATE
[2017-08-22 07:15] LABS: HEMATOCRIT 30.8 % (36.0-46.0); HEMOGLOBIN 9.7 G/DL (11.9-15.5); MCH 29.4 PG (29.0-34.0); MCHC 31.5 G/DL (30.0-36.0); MCV 93.3 FL (83-99); PLATELET COUNT 284 K/uL (156-360); RBC DIS.WIDTH-CV 12.3 % (11.8-14.6); RBC DIS.WIDTH-SD 41.8 % (39-53); WHITE BLOOD COUNT 10.5 K/uL (4.1-10.2)
[2017-08-22 07:36] LABS: CHLORIDE 104 MEQ/L (99-109); CREATININE 0.6 MG/DL (0.6-1.3); GFR ESTIMATE (CALCULATED) > 59 mL/min/; GLUCOSE 84 mg/dL (70-99); POTASSIUM 4.9 MEQ/L (3.7-5.4); SODIUM 138 MEQ/L (136-147); UREA NITROGEN (BUN) 16 mg/dL (9-23)
[2017-08-22 07:40] LABS: TROP-I INTERPRETATION NEGATIVE; TROPONIN-I 0.03 ng/mL (0.0-0.30)
[2017-08-22 08:27] VITALS: BP 144/83
[2017-08-22 10:13] VITALS: BP 131/58
[2017-08-22 15:23] VITALS: BP 113/58
[2017-08-22 19:39] VITALS: BP 112/52
[2017-08-22 23:48] VITALS: BP 103/54
[2017-08-23 04:19] VITALS: BP 112/55
[2017-08-23 07:44] VITALS: BP 121/57
[2017-08-23] MEDS ORDERED: AMOX TR-K CLV1 EAC4 PO (13:24)
[2017-08-23] MEDS ORDERED: NICOTINE PATCH1 EAC2 TD (13:24)
[2017-08-23] MEDS ORDERED: CARVEDILOL3.125 MG PO (13:25)
[2017-08-23] MEDS ORDERED: HYDROCODON-ACE1 EAC7 PO (13:27)
[2017-08-23] MEDS ORDERED: ATORVASTATIN CA40 MG PO (13:27)
[2017-08-23 15:21] VITALS: BP 157/67
== END 2017-08-23 19:21 | disposition home or self-care (01) | DRG 252 ==
LOC: EME 14:45 → 3EAST 16:33 → EDOF 16:33 → 4EAST 16:33 → ENRESERV 16:34 → 3EAST 19:58 → ENRESERV 08-21 16:31 → 3EAST 08-21 16:52 → ENRESERV 08-21 18:28 → 4EAST 08-22 04:05 → ENRESERV 08-22 08:53 → 3EAST 08-22 10:03
PROVIDERS: Family Medicine; Hospitalist; Internal Medicine; Nurse Practitioner Family; Surgery
PROC: 0Y6T0Z0 Detachment at Right 3rd Toe, Complete, Open Approach (ICD-10-PCS; 2017-08-19)
PROC: 061P0ZY Bypass Right Saphenous Vein to Lower Vein, Open Approach (ICD-10-PCS; principal; 2017-08-21)
DX: I70.261 Atherosclerosis of native arteries of extremities with gangrene, right leg (principal); J18.9 Pneumonia, unspecified organism; Z68.1 Body mass index [BMI] 19.9 or less, adult; I50.22 Chronic systolic (congestive) heart failure; L03.115 Cellulitis of right lower limb; F33.9 Major depressive disorder, recurrent, unspecified; R63.6 Underweight; I77.1 Stricture of artery; E11.40 Type 2 diabetes mellitus with diabetic neuropathy, unspecified; J43.9 Emphysema, unspecified; F41.9 Anxiety disorder, unspecified; G43.909 Migraine, unspecified, not intractable, without status migrainosus; R01.1 Cardiac murmur, unspecified; E11.52 Type 2 diabetes mellitus with diabetic peripheral angiopathy with gangrene; E11.65 Type 2 diabetes mellitus with hyperglycemia; E78.5 Hyperlipidemia, unspecified; F17.210 Nicotine dependence, cigarettes, uncomplicated; G40.909 Epilepsy, unspecified, not intractable, without status epilepticus; I11.0 Hypertensive heart disease with heart failure; I25.10 Atherosclerotic heart disease of native coronary artery without angina pectoris; K21.9 Gastro-esophageal reflux disease without esophagitis; I25.5 Ischemic cardiomyopathy; I70.1 Atherosclerosis of renal artery; Z85.41 Personal history of malignant neoplasm of cervix uteri; Z88.0 Allergy status to penicillin; Z91.040 Latex allergy status; K59.00 Constipation, unspecified; Z79.4 Long term (current) use of insulin; I25.2 Old myocardial infarction; Z91.19 Patient's noncompliance with other medical treatment and regimen; Z90.710 Acquired absence of both cervix and uterus; Z95.5 Presence of coronary angioplasty implant and graft; Z86.73 Personal history of transient ischemic attack (TIA), and cerebral infarction without residual deficits; Z91.14 Patient's other noncompliance with medication regimen; Z79.82 Long term (current) use of aspirin
CPT/HCPCS: 36415; 71045; 73720; 78452; 80048; 80048 91; 80053; 80076; 80202; 82565; 82948; 83735; 84100; 84484; 85025; 85027; 85610; 85730; 87040; 88305; 88311; 93005; 93017; 93971; 94799; 99281; 99285; A9500; J0131; J0690; J1100; J1170; J1644; J1650; J1815; J2250; J2270; J2405; J2543; J2720; J2785; J3010; J3370; J7030; J7050; J7120; S0028

== ENCOUNTER 2017-08-27 02:18 | Inpatient (IN) | payer OTHER ==
[~2017-08-27] VITALS: Ht 162.6 cm; Wt 52.4 kg
[~2017-08-27 02:18] MED LIST changes: +AMOX TR-K CLV1 EAC4 PO; +CARVEDILOL3.125 MG PO; +CILOSTAZOL50 MG PO; +CYMBALTA30 MG PO; +GABAPENTIN600 MG PO; +HYDROCODON-ACE1 EAC7 PO
[2017-08-27 03:19] LABS: HEMATOCRIT 25.3 % (36.0-46.0); HEMOGLOBIN 8.5 G/DL (11.9-15.5); MCH 30.8 PG (29.0-34.0); MCHC 33.6 G/DL (30.0-36.0); MCV 91.7 FL (83-99); PLATELET COUNT 339 K/uL (156-360); RBC DIS.WIDTH-CV 12.6 % (11.8-14.6); RBC DIS.WIDTH-SD 41.4 % (39-53); RED BLOOD COUNT 2.76 M/uL (3.80-5.20); WHITE BLOOD COUNT 8.7 K/uL (4.1-10.2)
[2017-08-27 03:26] LABS: ALBUMIN 2.6 g/dL (3.2-4.8); INTER. NORMALIZED RATIO 1.1
[2017-08-27 03:27] LABS: CHLORIDE 102 mEq/L (99-109); SODIUM 133 mEq/L (136-147)
[2017-08-27 03:29] LABS: GLUCOSE 389 mg/dL (70-99); PTT 27.8 SEC (25-37); TOTAL PROTEIN 5.4 g/dL (6.4-8.3)
[2017-08-27 03:31] LABS: TOTAL BILIRUBIN 0.5 mg/dL (0.0-1.0)
[2017-08-27 03:32] LABS: ALKALINE PHOSPHATASE 401 IU/L (3-129)
[2017-08-27 03:33] LABS: CREATININE 0.8 mg/dL (0.6-1.3); GFR ESTIMATE (CALCULATED) > 59 mL/min/
[2017-08-27 03:34] LABS: AST (GOT) 22 IU/L (2-34); UREA NITROGEN (BUN) 11 mg/dL (9-23)
[2017-08-27 03:36] LABS: ALT (GPT) 20 IU/L (3-49); LIPASE 19 U/L (1.0-51.0)
[2017-08-27 03:39] LABS: TROP-I INTERPRETATION NEGATIVE; TROPONIN-I 0.08 ng/mL (0.0-0.30)
[2017-08-27 07:27] LABS: TROP-I INTERPRETATION NEGATIVE; TROPONIN-I 0.09 ng/mL (0.0-0.30)
[2017-08-27 09:18] LABS: MAGNESIUM 1.6 mg/dL (1.3-2.7)
[2017-08-27 09:25] LABS: INTER. NORMALIZED RATIO 1.1
[2017-08-27 09:28] LABS: PTT 27.4 SEC (25-37)
[2017-08-27 10:31] VITALS: BP 124/59
[2017-08-27 12:00] VITALS: BP 130/59
[2017-08-27 14:56] VITALS: BP 135/63
[2017-08-27 15:17] VITALS: BP 116/55
[2017-08-27 15:22] VITALS: BP 136/61
[2017-08-27 15:44] LABS: BASE EXCESS 6.4 mEq/L (-3 to +3); BICARBONATE 30.5 mEq/L (22-26); CARBOXY HGB 2.6 % (0-5); METHEMOGLOBIN 1.5 % (0-1.5); PCO2 41 mm Hg (35-45); PO2 61 mm Hg (80-100); pH 7.48 (7.35-7.45)
[2017-08-27 15:45] LABS: COMMENTS - BLOOD GASES A+C+; DEVICE NC; O2 FLOW 4 L/MIN; SITE LR
[2017-08-27 15:47] LABS: BASOPHIL (%) 0.5 % (0-1); BASOPHIL COUNT 0.1 K/uL (0-0.1); EOSINOPHIL COUNT 0.2 K/uL (0-0.3); HEMATOCRIT 25.5 % (36.0-46.0); HEMOGLOBIN 8.3 G/DL (11.9-15.5); LYMPHOCYTE COUNT 1.6 K/uL (1.0-2.8); MCH 30.3 PG (29.0-34.0); MCHC 32.5 G/DL (30.0-36.0); MCV 93.1 FL (83-99); MONOCYTE (%) 6.2 % (3-12); MONOCYTE COUNT 0.7 K/uL (0-0.8); NEUTROPHIL (%) 76.3 % (45-76); NEUTROPHIL COUNT 8.7 K/uL (1.8-6.4); PLATELET COUNT 344 K/uL (156-360); RBC DIS.WIDTH-CV 12.9 % (11.8-14.6); RBC DIS.WIDTH-SD 43.1 % (39-53); RED BLOOD COUNT 2.74 M/uL (3.80-5.20); WHITE BLOOD COUNT 11.4 K/uL (4.1-10.2)
[2017-08-27 16:09] LABS: TROP-I INTERPRETATION NEGATIVE; TROPONIN-I 0.08 ng/mL (0.0-0.30)
[2017-08-27 16:11] LABS: CHLORIDE 100 MEQ/L (99-109); CREATININE 0.7 MG/DL (0.6-1.3); GFR ESTIMATE (CALCULATED) > 59 mL/min/; GLUCOSE 225 mg/dL (70-99); POTASSIUM 3.7 MEQ/L (3.7-5.4); SODIUM 136 MEQ/L (136-147); UREA NITROGEN (BUN) 10 mg/dL (9-23)
[2017-08-27 19:20] VITALS: BP 127/65
[2017-08-28 00:10] VITALS: BP 112/62
[2017-08-28 00:25] LABS: TROP-I INTERPRETATION NEGATIVE; TROPONIN-I 0.07 ng/mL (0.0-0.30)
[2017-08-28 04:21] VITALS: BP 122/63
[2017-08-28 06:05] LABS: HEMATOCRIT 27.4 % (36.0-46.0); HEMOGLOBIN 8.9 G/DL (11.9-15.5); MCH 30.1 PG (29.0-34.0); MCHC 32.5 G/DL (30.0-36.0); MCV 92.6 FL (83-99); PLATELET COUNT 347 K/uL (156-360); RBC DIS.WIDTH-CV 13.1 % (11.8-14.6); RBC DIS.WIDTH-SD 42.6 % (39-53); RED BLOOD COUNT 2.96 M/uL (3.80-5.20)
[2017-08-28 06:44] LABS: CHLORIDE 100 MEQ/L (99-109); CREATININE 0.6 MG/DL (0.6-1.3); GFR ESTIMATE (CALCULATED) > 59 mL/min/; GLUCOSE 206 mg/dL (70-99); POTASSIUM 3.7 MEQ/L (3.7-5.4); SODIUM 138 MEQ/L (136-147); UREA NITROGEN (BUN) 11 mg/dL (9-23)
[2017-08-28 08:30] VITALS: BP 138/65
[2017-08-28 11:03] VITALS: BP 119/55
[2017-08-28 15:10] VITALS: BP 127/59
[2017-08-28 15:21] VITALS: BP 136/67
== END 2017-08-28 21:36 | disposition left against medical advice (07) | DRG 293 ==
LOC: EME 02:18 → CANRESERV 08:18 → ENRESERV 08:18 → EDOF 08:37 → 4EAST 08:37 → ENRESERV 08:49 → EDOF 09:09 → ENRESERV 09:27 → 4EAST 09:51
PROVIDERS: Emergency Medicine; Hospitalist; Internal Medicine
DX: I11.0 Hypertensive heart disease with heart failure (principal); I50.23 Acute on chronic systolic (congestive) heart failure; I25.110 Atherosclerotic heart disease of native coronary artery with unstable angina pectoris; E11.65 Type 2 diabetes mellitus with hyperglycemia; E11.51 Type 2 diabetes mellitus with diabetic peripheral angiopathy without gangrene; D63.8 Anemia in other chronic diseases classified elsewhere; E78.5 Hyperlipidemia, unspecified; I25.5 Ischemic cardiomyopathy; J43.9 Emphysema, unspecified; M79.7 Fibromyalgia; R09.02 Hypoxemia; I95.9 Hypotension, unspecified; F17.210 Nicotine dependence, cigarettes, uncomplicated; Z91.19 Patient's noncompliance with other medical treatment and regimen; I25.2 Old myocardial infarction; Z95.5 Presence of coronary angioplasty implant and graft; Z79.4 Long term (current) use of insulin; Z79.82 Long term (current) use of aspirin; Z79.02 Long term (current) use of antithrombotics/antiplatelets; Z87.01 Personal history of pneumonia (recurrent); Z85.3 Personal history of malignant neoplasm of breast; Z85.41 Personal history of malignant neoplasm of cervix uteri; Z86.73 Personal history of transient ischemic attack (TIA), and cerebral infarction without residual deficits; Z90.710 Acquired absence of both cervix and uterus; Z89.421 Acquired absence of other right toe(s)
CPT/HCPCS: 36600; 71045; 71275; 80048; 80048 91; 80053; 82803; 82948; 83690; 83735; 83880; 84484; 85025; 85027; 85610; 85730; 93005; 94640; 94640 76; 94760; 94799; 99281; 99285; J1815; J1940; J2270; J3010; J7030

== ENCOUNTER 2017-10-09 15:30 | Inpatient (IN) | payer OTHER ==
[~2017-10-09] VITALS: Ht 162.6 cm; Wt 48.5 kg
[2017-10-09 16:30] LABS: HEMATOCRIT 37.6 % (36.0-46.0); HEMOGLOBIN 12.4 G/DL (11.9-15.5); MCH 29.7 PG (29.0-34.0); MCV 90.2 FL (83-99); PLATELET COUNT 245 K/uL (156-360); RBC DIS.WIDTH-CV 13.8 % (11.8-14.6); RBC DIS.WIDTH-SD 46.2 % (39-53); RED BLOOD COUNT 4.17 M/uL (3.80-5.20)
[2017-10-09 16:41] LABS: CHLORIDE 97 mEq/L (99-109); POTASSIUM 4.3 mEq/L (3.7-5.4); SODIUM 134 mEq/L (136-147)
[2017-10-09 16:47] LABS: CREATININE 1.1 mg/dL (0.6-1.3); GFR ESTIMATE (CALCULATED) 54 mL/min/
[2017-10-09 16:48] LABS: UREA NITROGEN (BUN) 16 mg/dL (9-23)
[2017-10-09 16:51] LABS: GLUCOSE 615 mg/dL (70-99)
[2017-10-09 17:49] LABS: APPEARANCE CLEAR ((CLEAR)); BILIRUBIN NEGATIVE; BLOOD NEGATIVE; COLOR STRAW ((YELLOW)); GLUCOSE (STRIP) >=500; KETONES NEGATIVE; LEUKOCYTES TRACE; NITRITE NEGATIVE; PROTEIN (STRIP) NEGATIVE; SPECIFIC GRAVITY 1.025 (1.000-1.030); UROBILINOGEN 0.2 MG/DL (0.2-1.0)
[2017-10-09 17:55] LABS: BACTERIA NONE SEEN /HPF; EPITHELIAL CELLS RARE /HPF; MUCUS NONE SEEN /LPF; RED BLOOD CELLS 0-5 /HPF (0-5)
[2017-10-09] MEDS ORDERED: CARVEDILOL3.125 MG PO (18:26)
[2017-10-09] MEDS ORDERED: ATORVASTATIN CA40 MG PO (18:26)
[2017-10-09] MEDS ORDERED: NITROSTAT0.4 MG SL (18:27)
[2017-10-09] MEDS ORDERED: NOVOLOG PE100 UNITS/ SC (18:28)
[2017-10-09 22:21] LABS: ALBUMIN 3.6 G/DL (3.2-4.8); DIRECT BILIRUBIN 0.1 mg/dL (0.0-0.3); TOTAL BILIRUBIN 0.5 MG/DL (0.0-1.0)
[2017-10-09 22:26] LABS: ALKALINE PHOSPHATASE 295 IU/L (3-129); ALT (GPT) 14 IU/L (3-49); AST (GOT) 15 IU/L (2-34); TOTAL PROTEIN 7.1 G/DL (6.4-8.3)
[2017-10-09 22:35] VITALS: BP 141/67
[2017-10-10] VITALS (8 sets, daily range): BP systolic 105–140; BP diastolic 51–66
[2017-10-10 05:46] LABS: BASOPHIL (%) 0.9 % (0-1); BASOPHIL COUNT 0.1 K/uL (0-0.1); EOSINOPHIL (%) 2.8 % (0-5); EOSINOPHIL COUNT 0.2 K/uL (0-0.3); HEMOGLOBIN 10.8 G/DL (11.9-15.5); IMMATURE GRANULOCYTE (%) 0.3 % (0.0-0.7); LYMPHOCYTE (%) 33.8 % (15-42); LYMPHOCYTE COUNT 2.3 K/uL (1.0-2.8); MCH 28.6 PG (29.0-34.0); MCHC 31.8 G/DL (30.0-36.0); MCV 90.2 FL (83-99); MONOCYTE (%) 7.3 % (3-12); MONOCYTE COUNT 0.5 K/uL (0-0.8); NEUTROPHIL (%) 54.9 % (45-76); NEUTROPHIL COUNT 3.7 K/uL (1.8-6.4); PLATELET COUNT 243 K/uL (156-360); RBC DIS.WIDTH-CV 13.7 % (11.8-14.6); RBC DIS.WIDTH-SD 45.8 % (39-53); RED BLOOD COUNT 3.77 M/uL (3.80-5.20); WHITE BLOOD COUNT 6.7 K/uL (4.1-10.2)
[2017-10-10 06:13] LABS: CHLORIDE 105 MEQ/L (99-109); CREATININE 0.8 MG/DL (0.6-1.3); GFR ESTIMATE (CALCULATED) > 59 mL/min/; POTASSIUM 4.4 MEQ/L (3.7-5.4); SODIUM 137 MEQ/L (136-147); UREA NITROGEN (BUN) 15 mg/dL (9-23)
[2017-10-10 06:15] LABS: GLUCOSE 280 mg/dL (70-99)
[2017-10-10 18:37] LABS: TROP-I INTERPRETATION NEGATIVE; TROPONIN-I < 0.01 ng/mL (0.0-0.30)
[2017-10-11 04:27] VITALS: BP 120/56
[2017-10-11 05:21] LABS: HEMATOCRIT 32.8 % (36.0-46.0); HEMOGLOBIN 10.7 G/DL (11.9-15.5); MCHC 32.6 G/DL (30.0-36.0); MCV 91.9 FL (83-99); PLATELET COUNT 228 K/uL (156-360); RBC DIS.WIDTH-CV 13.9 % (11.8-14.6); RBC DIS.WIDTH-SD 47.3 % (39-53); RED BLOOD COUNT 3.57 M/uL (3.80-5.20); WHITE BLOOD COUNT 7.8 K/uL (4.1-10.2)
[2017-10-11 05:29] LABS: CHLORIDE 106 MEQ/L (99-109); CREATININE 0.7 MG/DL (0.6-1.3); GFR ESTIMATE (CALCULATED) > 59 mL/min/; GLUCOSE 153 mg/dL (70-99); POTASSIUM 4.2 MEQ/L (3.7-5.4); SODIUM 138 MEQ/L (136-147); UREA NITROGEN (BUN) 18 mg/dL (9-23)
[2017-10-11 07:30] VITALS: BP 123/57
[2017-10-11 12:02] VITALS: BP 105/51
[2017-10-11 14:22] LABS: HEMOGLOBIN A1c (GLYCOHEMOGLOB) 12.6 % (Below 5.7)
[2017-10-11 16:00] VITALS: BP 157/70
[2017-10-11 20:06] VITALS: BP 132/60
[2017-10-12 00:34] VITALS: BP 115/58
[2017-10-12 04:18] VITALS: BP 125/50
[2017-10-12 07:27] VITALS: BP 120/52
[2017-10-12 10:41] VITALS: BP 122/52
[2017-10-12 16:18] VITALS: BP 119/58
[2017-10-12 20:15] VITALS: BP 108/56
[2017-10-13] VITALS (7 sets, daily range): BP systolic 117–149; BP diastolic 48–64
[2017-10-13 07:48] LABS: C DIFF TOXIN NEGATIVE (NEGATIVE)
[2017-10-14 00:49] VITALS: BP 137/63
[2017-10-14 04:00] VITALS: BP 132/75
[2017-10-14 05:35] VITALS: BP 156/69
[2017-10-14 08:13] VITALS: BP 157/67
[2017-10-14] MEDS ORDERED: LEVEMIR100 UNIT/2 SC (10:37)
[2017-10-14] MEDS ORDERED: DOXYCYCLINE HY100 M3 PO (10:37)
[2017-10-14] MEDS ORDERED: CIPRO500 MG PO (10:37)
[2017-10-14] MEDS ORDERED: VENTOLIN HFA18 GM IH (10:39)
== END 2017-10-14 12:35 | disposition home or self-care (01) | DRG 256 ==
LOC: EME 15:30 → 3EAST 20:18 → EDOF 20:18 → ENRESERV 20:19 → 3EAST 22:25
PROVIDERS: Hospitalist; Physician Assistant
DX: E11.52 Type 2 diabetes mellitus with diabetic peripheral angiopathy with gangrene (principal); I70.261 Atherosclerosis of native arteries of extremities with gangrene, right leg; E11.628 Type 2 diabetes mellitus with other skin complications; L03.115 Cellulitis of right lower limb; E11.65 Type 2 diabetes mellitus with hyperglycemia; E11.69 Type 2 diabetes mellitus with other specified complication; M86.9 Osteomyelitis, unspecified; I11.0 Hypertensive heart disease with heart failure; I50.22 Chronic systolic (congestive) heart failure; E11.42 Type 2 diabetes mellitus with diabetic polyneuropathy; I70.1 Atherosclerosis of renal artery; I25.10 Atherosclerotic heart disease of native coronary artery without angina pectoris; I25.5 Ischemic cardiomyopathy; E78.5 Hyperlipidemia, unspecified; J44.9 Chronic obstructive pulmonary disease, unspecified; G40.909 Epilepsy, unspecified, not intractable, without status epilepticus; K21.9 Gastro-esophageal reflux disease without esophagitis; G89.4 Chronic pain syndrome; G43.909 Migraine, unspecified, not intractable, without status migrainosus; M79.7 Fibromyalgia; F31.9 Bipolar disorder, unspecified; F41.9 Anxiety disorder, unspecified; F10.11 Alcohol abuse, in remission; F17.210 Nicotine dependence, cigarettes, uncomplicated; Z91.14 Patient's other noncompliance with medication regimen; Z91.19 Patient's noncompliance with other medical treatment and regimen; Z79.4 Long term (current) use of insulin; Z79.891 Long term (current) use of opiate analgesic; Z86.73 Personal history of transient ischemic attack (TIA), and cerebral infarction without residual deficits; Z95.820 Peripheral vascular angioplasty status with implants and grafts; Z85.41 Personal history of malignant neoplasm of cervix uteri; Z90.710 Acquired absence of both cervix and uterus; Z82.49 Family history of ischemic heart disease and other diseases of the circulatory system
CPT/HCPCS: 71045; 73630; 80048; 80076; 80202; 81003; 82010; 82565; 82948; 83036; 83605; 84484; 85025; 85027; 87040; 87070; 87075; 87205; 87493; 88305; 88311; 93005; 93926; 93970; 94799; 97530 GP; 99281; 99285; J0692; J1170; J1644; J1815; J2270; J2405; J2543; J3010; J3370; J7030; J7050; S0020

== ENCOUNTER 2017-12-24 13:04 | Emergency (ER) | payer OTHER ==
[~2017-12-24] VITALS: Ht 162.6 cm; Wt 45.9 kg
[~2017-12-24 13:04] MED LIST changes: +DOXYCYCLINE HY100 M3 PO
[2017-12-24 14:18] LABS: BASOPHIL (%) 0.6 % (0-1); EOSINOPHIL (%) 1.7 % (0-5); EOSINOPHIL COUNT 0.1 K/uL (0-0.3); HEMOGLOBIN 14.2 G/DL (11.9-15.5); IMMATURE GRANULOCYTE (%) 0.4 % (0.0-0.7); LYMPHOCYTE (%) 25.6 % (15-42); LYMPHOCYTE COUNT 1.8 K/uL (1.0-2.8); MCH 29.6 PG (29.0-34.0); MCHC 34.6 G/DL (30.0-36.0); MCV 85.4 FL (83-99); MONOCYTE (%) 7.8 % (3-12); MONOCYTE COUNT 0.6 K/uL (0-0.8); NEUTROPHIL (%) 63.9 % (45-76); NEUTROPHIL COUNT 4.5 K/uL (1.8-6.4); PLATELET COUNT 219 K/uL (156-360); RBC DIS.WIDTH-CV 13.4 % (11.8-14.6); RBC DIS.WIDTH-SD 42.1 % (39-53)
[2017-12-24 14:32] LABS: PTT 26.1 SEC (25-37)
[2017-12-24 14:49] LABS: CHLORIDE 98 MEQ/L (99-109); CREATININE 0.7 MG/DL (0.6-1.3); GFR ESTIMATE (CALCULATED) > 59 mL/min/; GLUCOSE 368 mg/dL (70-99); POTASSIUM 4.3 MEQ/L (3.7-5.4); SODIUM 131 MEQ/L (136-147); UREA NITROGEN (BUN) 12 mg/dL (9-23)
[2017-12-24 14:53] LABS: TROP-I INTERPRETATION NEGATIVE; TROPONIN-I 0.02 ng/mL (0.0-0.30)
[2017-12-24 18:04] LABS: TROP-I INTERPRETATION NEGATIVE; TROPONIN-I 0.02 ng/mL (0.0-0.30)
[2017-12-24 19:32] VITALS: BP 163/78
== END 2017-12-24 19:33 | disposition home or self-care (01) ==
LOC: EME 13:04
PROVIDERS: Emergency Medicine
DX: R07.89 Other chest pain (principal); E78.5 Hyperlipidemia, unspecified; M79.7 Fibromyalgia; K21.9 Gastro-esophageal reflux disease without esophagitis; I11.0 Hypertensive heart disease with heart failure; I50.9 Heart failure, unspecified; J44.9 Chronic obstructive pulmonary disease, unspecified; E11.9 Type 2 diabetes mellitus without complications; I25.10 Atherosclerotic heart disease of native coronary artery without angina pectoris; I25.2 Old myocardial infarction; F41.9 Anxiety disorder, unspecified; F32.9 Major depressive disorder, single episode, unspecified; F17.200 Nicotine dependence, unspecified, uncomplicated; Z85.3 Personal history of malignant neoplasm of breast; Z85.41 Personal history of malignant neoplasm of cervix uteri; Z86.73 Personal history of transient ischemic attack (TIA), and cerebral infarction without residual deficits; Z90.710 Acquired absence of both cervix and uterus; Z98.61 Coronary angioplasty status; Z79.4 Long term (current) use of insulin; Z79.82 Long term (current) use of aspirin; Z91.040 Latex allergy status; Z88.0 Allergy status to penicillin; Z88.1 Allergy status to other antibiotic agents
CPT/HCPCS: 71045; 80048; 84484; 85025; 85610; 85730; 93005; 99281; 99285

== ENCOUNTER 2018-01-07 21:18 | Emergency (ER) | payer OTHER ==
[~2018-01-07] VITALS: Ht 162.6 cm; Wt 47.6 kg
[2018-01-07 21:57] LABS: HEMATOCRIT 35.8 % (36.0-46.0); HEMOGLOBIN 12.4 G/DL (11.9-15.5); MCHC 34.6 G/DL (30.0-36.0); MCV 86.7 FL (83-99); PLATELET COUNT 189 K/uL (156-360); RBC DIS.WIDTH-CV 13.3 % (11.8-14.6); RBC DIS.WIDTH-SD 42.1 % (39-53); RED BLOOD COUNT 4.13 M/uL (3.80-5.20); WHITE BLOOD COUNT 5.3 K/uL (4.1-10.2)
[2018-01-07 22:04] LABS: ALBUMIN 3.3 g/dL (3.2-4.8)
[2018-01-07 22:05] LABS: CHLORIDE 98 mEq/L (99-109); POTASSIUM 4.2 mEq/L (3.7-5.4); SODIUM 131 mEq/L (136-147)
[2018-01-07 22:07] LABS: TOTAL PROTEIN 5.9 g/dL (6.4-8.3)
[2018-01-07 22:09] LABS: TOTAL BILIRUBIN 0.4 mg/dL (0.0-1.0)
[2018-01-07 22:10] LABS: ALKALINE PHOSPHATASE 306 IU/L (3-129)
[2018-01-07 22:11] LABS: CREATININE 1.1 mg/dL (0.6-1.3); GFR ESTIMATE (CALCULATED) 54 mL/min/; GLUCOSE 725 mg/dL (70-99)
[2018-01-07 22:12] LABS: AST (GOT) 33 IU/L (2-34); UREA NITROGEN (BUN) 17 mg/dL (9-23)
[2018-01-07 22:13] LABS: ALT (GPT) 52 IU/L (3-49)
[2018-01-07 22:19] LABS: TROP-I INTERPRETATION NEGATIVE; TROPONIN-I 0.03 ng/mL (0.0-0.30)
[2018-01-07] MEDS ORDERED: CYMBALTA20 MG PO (22:40)
[2018-01-07] MEDS ORDERED: GLUCOPHAGE1000 MG PO (22:40)
[2018-01-07] MEDS ORDERED: PLAVIX75 MG PO (22:40)
[2018-01-07 23:35] VITALS: BP 165/74
== END 2018-01-07 23:35 | disposition left against medical advice (07) ==
LOC: EME 21:18
PROVIDERS: Emergency Medicine
DX: E11.65 Type 2 diabetes mellitus with hyperglycemia (principal); I20.0 Unstable angina; T38.3X6A Underdosing of insulin and oral hypoglycemic [antidiabetic] drugs, initial encounter; Z91.128 Patient's intentional underdosing of medication regimen for other reason; Z79.84 Long term (current) use of oral hypoglycemic drugs; I11.0 Hypertensive heart disease with heart failure; I50.9 Heart failure, unspecified; E78.5 Hyperlipidemia, unspecified; I25.2 Old myocardial infarction; F32.9 Major depressive disorder, single episode, unspecified; F41.9 Anxiety disorder, unspecified; J44.9 Chronic obstructive pulmonary disease, unspecified; K21.9 Gastro-esophageal reflux disease without esophagitis; M79.7 Fibromyalgia; Z85.41 Personal history of malignant neoplasm of cervix uteri; Z85.3 Personal history of malignant neoplasm of breast; F17.200 Nicotine dependence, unspecified, uncomplicated; Z86.73 Personal history of transient ischemic attack (TIA), and cerebral infarction without residual deficits; Z90.710 Acquired absence of both cervix and uterus; Z95.5 Presence of coronary angioplasty implant and graft; Z79.82 Long term (current) use of aspirin; Z88.1 Allergy status to other antibiotic agents; Z88.0 Allergy status to penicillin; Z91.040 Latex allergy status
CPT/HCPCS: 71046; 80053; 84484; 85027; 93005; 99281; 99285

== ENCOUNTER 2018-01-23 22:55 | Inpatient (IN) | payer OTHER ==
[~2018-01-23] VITALS: Ht 162.6 cm; Wt 48.5 kg
[~2018-01-23 22:55] MED LIST changes: +CYMBALTA20 MG PO; +GLUCOPHAGE1000 MG PO
[2018-01-23 23:27] LABS: HEMATOCRIT 35.1 % (36.0-46.0); HEMOGLOBIN 11.9 G/DL (11.9-15.5); MCH 30.2 PG (29.0-34.0); MCHC 33.9 G/DL (30.0-36.0); MCV 89.1 FL (83-99); PLATELET COUNT 240 K/uL (156-360); RBC DIS.WIDTH-CV 13.7 % (11.8-14.6); RBC DIS.WIDTH-SD 44.9 % (39-53); RED BLOOD COUNT 3.94 M/uL (3.80-5.20); WHITE BLOOD COUNT 8.5 K/uL (4.1-10.2)
[2018-01-23 23:35] LABS: ALBUMIN 2.7 g/dL (3.2-4.8)
[2018-01-23 23:36] LABS: CHLORIDE 103 mEq/L (99-109); POTASSIUM 3.9 mEq/L (3.7-5.4); SODIUM 139 mEq/L (136-147)
[2018-01-23 23:38] LABS: GLUCOSE 104 mg/dL (70-99); TOTAL PROTEIN 4.9 g/dL (6.4-8.3)
[2018-01-23 23:40] LABS: TOTAL BILIRUBIN 0.3 mg/dL (0.0-1.0)
[2018-01-23 23:41] LABS: ALKALINE PHOSPHATASE 248 IU/L (3-129)
[2018-01-23 23:42] LABS: CREATININE 0.7 mg/dL (0.6-1.3); GFR ESTIMATE (CALCULATED) > 59 mL/min/
[2018-01-23 23:43] LABS: AST (GOT) 27 IU/L (2-34); UREA NITROGEN (BUN) 19 mg/dL (9-23)
[2018-01-23 23:44] LABS: ALT (GPT) 47 IU/L (3-49)
[2018-01-23 23:45] LABS: LIPASE 19 U/L (1.0-51.0)
[2018-01-23 23:49] LABS: TROP-I INTERPRETATION NEGATIVE; TROPONIN-I 0.01 ng/mL (0.0-0.30)
[2018-01-24] MEDS ORDERED: NOVOLOG MI100 UNIT/2 SC (01:49)
[2018-01-24] MEDS ORDERED: DULOXETINE HCL20 MG PO (01:55)
[2018-01-24] MEDS ORDERED: CLOPIDOGREL75 MG PO (01:55)
[2018-01-24] MEDS ORDERED: METFORMIN HCL1000 MG PO (01:55)
[2018-01-24 02:38] VITALS: BP 152/68
[2018-01-24 05:45] LABS: TROP-I INTERPRETATION NEGATIVE; TROPONIN-I 0.02 ng/mL (0.0-0.30)
[2018-01-24 05:50] LABS: HEMATOCRIT 37.6 % (36.0-46.0); HEMOGLOBIN 12.6 G/DL (11.9-15.5); MCH 29.8 PG (29.0-34.0); MCHC 33.5 G/DL (30.0-36.0); MCV 88.9 FL (83-99); PLATELET COUNT 286 K/uL (156-360); RBC DIS.WIDTH-CV 13.8 % (11.8-14.6); RBC DIS.WIDTH-SD 44.9 % (39-53); RED BLOOD COUNT 4.23 M/uL (3.80-5.20); WHITE BLOOD COUNT 8.2 K/uL (4.1-10.2)
[2018-01-24 05:52] LABS: CHLORIDE 107 MEQ/L (99-109); CREATININE 0.7 MG/DL (0.6-1.3); GFR ESTIMATE (CALCULATED) > 59 mL/min/; POTASSIUM 4.2 MEQ/L (3.7-5.4); SODIUM 141 MEQ/L (136-147); UREA NITROGEN (BUN) 20 mg/dL (9-23)
[2018-01-24 05:54] LABS: GLUCOSE 65 mg/dL (70-99)
[2018-01-24 08:47] VITALS: BP 153/70
[2018-01-24 10:41] LABS: HEMOGLOBIN A1c (GLYCOHEMOGLOB) 13.6 % (Below 5.7)
[2018-01-24 12:24] LABS: APPEARANCE SL.HAZY ((CLEAR)); BILIRUBIN NEGATIVE; BLOOD SMALL; COLOR YELLOW ((YELLOW)); GLUCOSE (STRIP) >=500; KETONES NEGATIVE; LEUKOCYTES LARGE; NITRITE NEGATIVE; PROTEIN (STRIP) NEGATIVE; SPECIFIC GRAVITY 1.006 (1.000-1.030); UROBILINOGEN 0.2 MG/DL (0.2-1.0)
[2018-01-24 12:47] LABS: TROP-I INTERPRETATION NEGATIVE; TROPONIN-I 0.01 ng/mL (0.0-0.30)
[2018-01-24 12:53] LABS: EPITHELIAL CELLS 1+ /HPF; RED BLOOD CELLS 0-5 /HPF (0-5)
[2018-01-24 12:55] LABS: BACTERIA 1+ /HPF; MUCUS NONE SEEN /LPF
[2018-01-24 12:56] LABS: OTHER BUDDING YEAST 1+
[2018-01-24 14:00] VITALS: BP 145/66
== END 2018-01-24 16:33 | disposition home or self-care (01) | DRG 638 ==
LOC: EME → EDBD 22:55 → EME 22:55 → 4SOUTH 01-24 01:19 → EDOF 01-24 01:19 → ENRESERV 01-24 01:21 → 4SOUTH 01-24 02:24
PROVIDERS: Emergency Medicine; Hospitalist; Internal Medicine
DX: E11.649 Type 2 diabetes mellitus with hypoglycemia without coma (principal); F11.20 Opioid dependence, uncomplicated; Z68.1 Body mass index [BMI] 19.9 or less, adult; E11.42 Type 2 diabetes mellitus with diabetic polyneuropathy; E11.51 Type 2 diabetes mellitus with diabetic peripheral angiopathy without gangrene; E11.621 Type 2 diabetes mellitus with foot ulcer; L97.509 Non-pressure chronic ulcer of other part of unspecified foot with unspecified severity; K21.9 Gastro-esophageal reflux disease without esophagitis; M79.7 Fibromyalgia; I70.209 Unspecified atherosclerosis of native arteries of extremities, unspecified extremity; I70.1 Atherosclerosis of renal artery; E11.65 Type 2 diabetes mellitus with hyperglycemia; E78.5 Hyperlipidemia, unspecified; F10.11 Alcohol abuse, in remission; G89.4 Chronic pain syndrome; F17.210 Nicotine dependence, cigarettes, uncomplicated; F31.9 Bipolar disorder, unspecified; G40.909 Epilepsy, unspecified, not intractable, without status epilepticus; I34.0 Nonrheumatic mitral (valve) insufficiency; I36.1 Nonrheumatic tricuspid (valve) insufficiency; I25.5 Ischemic cardiomyopathy; I11.9 Hypertensive heart disease without heart failure; I25.10 Atherosclerotic heart disease of native coronary artery without angina pectoris; G43.909 Migraine, unspecified, not intractable, without status migrainosus; I70.8 Atherosclerosis of other arteries; J44.9 Chronic obstructive pulmonary disease, unspecified; R63.4 Abnormal weight loss; Z79.82 Long term (current) use of aspirin; I25.2 Old myocardial infarction; Z85.41 Personal history of malignant neoplasm of cervix uteri; Z86.73 Personal history of transient ischemic attack (TIA), and cerebral infarction without residual deficits; Z90.710 Acquired absence of both cervix and uterus; Z91.19 Patient's noncompliance with other medical treatment and regimen; Z89.421 Acquired absence of other right toe(s); Z79.4 Long term (current) use of insulin; Z73.6 Limitation of activities due to disability; Z88.0 Allergy status to penicillin; Z88.1 Allergy status to other antibiotic agents; Z91.040 Latex allergy status; Z82.49 Family history of ischemic heart disease and other diseases of the circulatory system
CPT/HCPCS: 71045; 80048; 80053; 81003; 82948; 83036; 83690; 83880; 84484; 85027; 85379; 87040; 93005; 99281; 99284; J1650; J7030; J7042; J7070; S0028

== ENCOUNTER 2018-02-22 21:39 | Emergency (ER) | payer OTHER ==
[~2018-02-22] VITALS: Ht 162.6 cm; Wt 46.4 kg
[~2018-02-22 21:39] MED LIST changes: +CLOPIDOGREL75 MG PO; +DULOXETINE HCL20 MG PO; -GABAPENTIN600 MG PO; +GABAPENTIN800 MG PO; +METFORMIN HCL1000 MG PO; +NOVOLOG MI100 UNIT/2 SC
[2018-02-22 22:16] LABS: BASOPHIL (%) 0.7 % (0-1); BASOPHIL COUNT 0.1 K/uL (0-0.1); EOSINOPHIL COUNT 0.1 K/uL (0-0.3); HEMOGLOBIN 12.4 G/DL (11.9-15.5); IMMATURE GRANULOCYTE (%) 0.7 % (0.0-0.7); LYMPHOCYTE (%) 24.6 % (15-42); LYMPHOCYTE COUNT 1.7 K/uL (1.0-2.8); MCH 30.8 PG (29.0-34.0); MCHC 35.4 G/DL (30.0-36.0); MCV 87.1 FL (83-99); MONOCYTE (%) 8.2 % (3-12); MONOCYTE COUNT 0.6 K/uL (0-0.8); NEUTROPHIL (%) 63.8 % (45-76); NEUTROPHIL COUNT 4.5 K/uL (1.8-6.4); PLATELET COUNT 216 K/uL (156-360); RBC DIS.WIDTH-CV 13.2 % (11.8-14.6); RBC DIS.WIDTH-SD 42.4 % (39-53); RED BLOOD COUNT 4.02 M/uL (3.80-5.20)
[2018-02-22 22:42] LABS: CHLORIDE 98 mEq/L (99-109); POTASSIUM 4.3 mEq/L (3.7-5.4); SODIUM 134 mEq/L (136-147)
[2018-02-22 22:47] LABS: CREATININE 1.1 mg/dL (0.6-1.3); GFR ESTIMATE (CALCULATED) 54 mL/min/
[2018-02-22 22:48] LABS: UREA NITROGEN (BUN) 17 mg/dL (9-23)
[2018-02-22 22:51] LABS: GLUCOSE 642 mg/dL (70-99)
[2018-02-22 22:53] LABS: TROP-I INTERPRETATION NEGATIVE; TROPONIN-I 0.01 ng/mL (0.0-0.30)
[2018-02-22 23:53] VITALS: BP 140/65
== END 2018-02-22 23:54 | disposition left against medical advice (07) ==
LOC: EME 21:39
PROVIDERS: Emergency Medicine
DX: R07.9 Chest pain, unspecified (principal); E11.65 Type 2 diabetes mellitus with hyperglycemia; R06.02 Shortness of breath; R55 Syncope and collapse; R94.31 Abnormal electrocardiogram [ECG] [EKG]; R00.0 Tachycardia, unspecified; I11.0 Hypertensive heart disease with heart failure; I50.9 Heart failure, unspecified; E78.5 Hyperlipidemia, unspecified; I25.2 Old myocardial infarction; I25.10 Atherosclerotic heart disease of native coronary artery without angina pectoris; Z95.5 Presence of coronary angioplasty implant and graft; Z86.73 Personal history of transient ischemic attack (TIA), and cerebral infarction without residual deficits; Z79.4 Long term (current) use of insulin; Z79.02 Long term (current) use of antithrombotics/antiplatelets; Z79.82 Long term (current) use of aspirin; Z85.3 Personal history of malignant neoplasm of breast; Z85.41 Personal history of malignant neoplasm of cervix uteri; Z90.710 Acquired absence of both cervix and uterus; F17.200 Nicotine dependence, unspecified, uncomplicated; Z53.20 Procedure and treatment not carried out because of patient's decision for unspecified reasons
CPT/HCPCS: 71045; 80048; 84484; 85025; 93005; 99281; 99284; J7030

== ENCOUNTER 2018-02-26 16:19 | Observation (INO) | payer OTHER ==
[~2018-02-26] VITALS: Ht 162.6 cm; Wt 50.3 kg
[2018-02-26 16:40] LABS: BASOPHIL (%) 0.5 % (0-1); BASOPHIL COUNT 0.1 K/uL (0-0.1); EOSINOPHIL (%) 1.6 % (0-5); EOSINOPHIL COUNT 0.2 K/uL (0-0.3); HEMOGLOBIN 13.1 G/DL (11.9-15.5); IMMATURE GRANULOCYTE (%) 0.9 % (0.0-0.7); LYMPHOCYTE (%) 16.8 % (15-42); LYMPHOCYTE COUNT 1.9 K/uL (1.0-2.8); MCH 30.8 PG (29.0-34.0); MCHC 35.4 G/DL (30.0-36.0); MCV 87.1 FL (83-99); MONOCYTE COUNT 0.8 K/uL (0-0.8); NEUTROPHIL (%) 73.2 % (45-76); NEUTROPHIL COUNT 8.2 K/uL (1.8-6.4); PLATELET COUNT 267 K/uL (156-360); RBC DIS.WIDTH-CV 13.4 % (11.8-14.6); RBC DIS.WIDTH-SD 42.3 % (39-53); RED BLOOD COUNT 4.25 M/uL (3.80-5.20); WHITE BLOOD COUNT 11.2 K/uL (4.1-10.2)
[2018-02-26 16:45] LABS: INTER. NORMALIZED RATIO 0.9
[2018-02-26 16:48] LABS: PTT 25.9 SEC (25-37)
[2018-02-26 17:01] LABS: TROP-I INTERPRETATION NEGATIVE; TROPONIN-I 0.05 ng/mL (0.0-0.30)
[2018-02-26 17:17] LABS: AMYLASE 52 IU/L (1-118); CHLORIDE 98 mEq/L (99-109); SODIUM 135 mEq/L (136-147)
[2018-02-26 17:22] LABS: SERUM ETHYL ALCOHOL < 10 mg/dL
[2018-02-26 17:23] LABS: CREATININE 1.1 mg/dL (0.6-1.3); GFR ESTIMATE (CALCULATED) 54 mL/min/; UREA NITROGEN (BUN) 21 mg/dL (9-23)
[2018-02-26 17:26] LABS: GLUCOSE 411 mg/dL (70-99); LIPASE 48 U/L (1.0-51.0); POTASSIUM 5.2 mEq/L (3.7-5.4)
[2018-02-26 18:46] LABS: AMPHETAMINE NEGATIVE (500 ng/mL); BARBITURATES NEGATIVE (200 ng/mL); BENZODIAZEPINES NEGATIVE (150 ng/mL); BUPRENORPHINE NEGATIVE (10 ng/mL); COCAINE NEGATIVE (150 ng/mL); METHADONE NEGATIVE (200 ng/mL); METHAMPHETAMINE NEGATIVE (500 ng/mL); OPIATES (MORPHINE) NEGATIVE (100 ng/mL); OXYCODONE NEGATIVE (100 ng/mL); PHENCYCLIDINE NEGATIVE (25 ng/mL); PROPOXYPHENE NEGATIVE (300 ng/mL); THC CANNABINOIDS NEGATIVE (50 ng/mL); TRICYCLIC ANTIDEPRESSANTS NEGATIVE (300 ng/mL)
[2018-02-26 18:50] LABS: APPEARANCE SL.HAZY ((CLEAR)); BILIRUBIN NEGATIVE; BLOOD SMALL; COLOR YELLOW ((YELLOW)); GLUCOSE (STRIP) >=500; KETONES NEGATIVE; LEUKOCYTES LARGE; NITRITE POSITIVE; PROTEIN (STRIP) NEGATIVE; SPECIFIC GRAVITY 1.042 (1.000-1.030); UROBILINOGEN 0.2 MG/DL (0.2-1.0)
[2018-02-26 19:28] LABS: BACTERIA RARE /HPF; EPITHELIAL CELLS 1+ /HPF; MUCUS TRACE /LPF; UCUL ADDED? YES; WHITE BLOOD CELLS TNTC /HPF (0-5)
[2018-02-26] MEDS ORDERED: TIZANIDINE HCL4 MG PO (20:56)
[2018-02-26] MEDS ORDERED: LANTUS 3 M100 UNITS1 SC (20:58)
[2018-02-26 21:04] VITALS: BP 170/73
[2018-02-26 21:58] LABS: HEMATOCRIT 37.2 % (36.0-46.0); HEMOGLOBIN 13.3 G/DL (11.9-15.5); MCH 31.5 PG (29.0-34.0); MCHC 35.8 G/DL (30.0-36.0); MCV 88.2 FL (83-99); PLATELET COUNT 263 K/uL (156-360); RBC DIS.WIDTH-CV 13.4 % (11.8-14.6); RBC DIS.WIDTH-SD 43.6 % (39-53); RED BLOOD COUNT 4.22 M/uL (3.80-5.20)
[2018-02-26 22:05] LABS: TROP-I INTERPRETATION NEGATIVE; TROPONIN-I 0.05 ng/mL (0.0-0.30)
[2018-02-27] VITALS: BP 179/81
[2018-02-27 04:00] VITALS: BP 119/56
[2018-02-27 04:51] LABS: CHLORIDE 107 mEq/L (99-109); POTASSIUM 4.2 mEq/L (3.7-5.4); SODIUM 141 mEq/L (136-147)
[2018-02-27 04:56] LABS: CREATININE 0.8 mg/dL (0.6-1.3); GFR ESTIMATE (CALCULATED) > 59 mL/min/
[2018-02-27 04:57] LABS: UREA NITROGEN (BUN) 17 mg/dL (9-23)
[2018-02-27 04:59] LABS: TROP-I INTERPRETATION NEGATIVE; TROPONIN-I 0.04 ng/mL (0.0-0.30)
[2018-02-27 05:01] LABS: GLUCOSE 109 mg/dL (70-99)
[2018-02-27 08:01] VITALS: BP 135/63
[2018-02-27 13:32] VITALS: BP 119/58
[2018-02-27 20:00] VITALS: BP 135/65
== END 2018-02-27 21:48 | disposition left against medical advice (07) ==
LOC: EME 16:19 → 4SOUTH 20:03 → EDOF 20:03 → ENRESERV 20:07 → 4SOUTH 20:47
PROVIDERS: Emergency Medicine; Hospitalist
DX: R53.1 Weakness (principal); R47.89 Other speech disturbances; R47.01 Aphasia; I65.23 Occlusion and stenosis of bilateral carotid arteries; I69.334 Monoplegia of upper limb following cerebral infarction affecting left non-dominant side; I69.322 Dysarthria following cerebral infarction; N39.0 Urinary tract infection, site not specified; R07.9 Chest pain, unspecified; E11.42 Type 2 diabetes mellitus with diabetic polyneuropathy; E11.51 Type 2 diabetes mellitus with diabetic peripheral angiopathy without gangrene; E11.65 Type 2 diabetes mellitus with hyperglycemia; I25.10 Atherosclerotic heart disease of native coronary artery without angina pectoris; I25.5 Ischemic cardiomyopathy; I25.2 Old myocardial infarction; J44.9 Chronic obstructive pulmonary disease, unspecified; G40.909 Epilepsy, unspecified, not intractable, without status epilepticus; I70.1 Atherosclerosis of renal artery; F31.9 Bipolar disorder, unspecified; Z85.41 Personal history of malignant neoplasm of cervix uteri; G43.909 Migraine, unspecified, not intractable, without status migrainosus; M79.7 Fibromyalgia; G89.4 Chronic pain syndrome; Z89.421 Acquired absence of other right toe(s); Z90.710 Acquired absence of both cervix and uterus; Z90.49 Acquired absence of other specified parts of digestive tract; Z95.820 Peripheral vascular angioplasty status with implants and grafts; Z82.49 Family history of ischemic heart disease and other diseases of the circulatory system; F17.210 Nicotine dependence, cigarettes, uncomplicated; Z79.4 Long term (current) use of insulin; Z79.02 Long term (current) use of antithrombotics/antiplatelets; Z79.899 Other long term (current) drug therapy; Z88.0 Allergy status to penicillin; Z88.1 Allergy status to other antibiotic agents; Z91.040 Latex allergy status; Z91.048 Other nonmedicinal substance allergy status; Z91.018 Allergy to other foods
CPT/HCPCS: 70450; 70496; 70498; 80047; 80048; 81003; 82150; 82948; 83690; 84484; 85025; 85027; 85610; 85730; 86850; 86900; 86901; 87077; 87086; 87186; 92523 GN; 92610 GN; 93005; 93880; 94799; 99281; 99285; G0378; G0480; G8978 GP CK; G8979 GP CI; G8980 GP CK; G8987 GO CJ; G8988 CI; G8989 CJ; G8996 GN CH; G8997 GN CH; G8998 GN CH; J0696; J1644; J1815; J2270; J7040

== ENCOUNTER 2018-03-16 15:07 | Emergency (ER) | payer OTHER ==
[~2018-03-16] VITALS: Ht 162.6 cm; Wt 46.5 kg
[~2018-03-16 15:07] MED LIST changes: +TIZANIDINE HCL4 MG PO
[2018-03-16 16:34] LABS: BASOPHIL COUNT 0.1 K/uL (0-0.1); EOSINOPHIL (%) 3.1 % (0-5); EOSINOPHIL COUNT 0.2 K/uL (0-0.3); HEMATOCRIT 37.4 % (36.0-46.0); IMMATURE GRANULOCYTE (%) 0.7 % (0.0-0.7); LYMPHOCYTE (%) 26.6 % (15-42); LYMPHOCYTE COUNT 1.6 K/uL (1.0-2.8); MCH 30.7 PG (29.0-34.0); MCHC 34.8 G/DL (30.0-36.0); MCV 88.2 FL (83-99); MONOCYTE (%) 6.3 % (3-12); MONOCYTE COUNT 0.4 K/uL (0-0.8); NEUTROPHIL (%) 62.3 % (45-76); NEUTROPHIL COUNT 3.8 K/uL (1.8-6.4); PLATELET COUNT 222 K/uL (156-360); RBC DIS.WIDTH-SD 42.1 % (39-53); RED BLOOD COUNT 4.24 M/uL (3.80-5.20); WHITE BLOOD COUNT 6.1 K/uL (4.1-10.2)
[2018-03-16 16:47] LABS: CHLORIDE 100 mEq/L (99-109); POTASSIUM 4.2 mEq/L (3.7-5.4); SODIUM 131 mEq/L (136-147)
[2018-03-16 16:51] LABS: GLUCOSE 509 mg/dL (70-99)
[2018-03-16 16:53] LABS: GFR ESTIMATE (CALCULATED) > 59 mL/min/
[2018-03-16 16:54] LABS: UREA NITROGEN (BUN) 22 mg/dL (9-23)
[2018-03-16 16:59] LABS: TROP-I INTERPRETATION NEGATIVE; TROPONIN-I < 0.01 ng/mL (0.0-0.30)
[2018-03-16 20:19] LABS: TROP-I INTERPRETATION NEGATIVE; TROPONIN-I < 0.01 ng/mL (0.0-0.30)
[2018-03-16 20:49] VITALS: BP 151/75
== END 2018-03-16 21:19 | disposition home or self-care (01) ==
LOC: EME 15:07
PROVIDERS: Physician Assistant
DX: E11.65 Type 2 diabetes mellitus with hyperglycemia (principal); R53.1 Weakness; R07.9 Chest pain, unspecified; R42 Dizziness and giddiness; R94.31 Abnormal electrocardiogram [ECG] [EKG]; I11.0 Hypertensive heart disease with heart failure; I50.9 Heart failure, unspecified; E78.5 Hyperlipidemia, unspecified; I25.2 Old myocardial infarction; Z95.5 Presence of coronary angioplasty implant and graft; Z86.73 Personal history of transient ischemic attack (TIA), and cerebral infarction without residual deficits; Z79.4 Long term (current) use of insulin; Z79.02 Long term (current) use of antithrombotics/antiplatelets; Z79.82 Long term (current) use of aspirin; Z85.41 Personal history of malignant neoplasm of cervix uteri; Z90.710 Acquired absence of both cervix and uterus; Z88.0 Allergy status to penicillin; Z88.1 Allergy status to other antibiotic agents; F17.200 Nicotine dependence, unspecified, uncomplicated
CPT/HCPCS: 71046; 80048; 82948; 84484; 85025; 93005; 99281; 99285; J7030